=== PATIENT | male | born 1990 | race Caucasian/White ===

== ENCOUNTER 2018-10-21 17:54 | Observation (INO) ==
--- NOTE | 2018-10-21 18:25 | Emergency Department Note ---
Disposition Clinical Impression: Pneumonia Qualifiers: Pneumonia type: due to unspecified organism Laterality: right Lung location: lower lobe of lung Qualified Code(s): J18.1 - Lobar pneumonia, unspecified organism Sepsis Qualifiers: Sepsis type: sepsis due to unspecified organism Qualified Code(s): A41.9 - Sepsis, unspecified organism Disposition: Admitted As Inpatient Condition: Fair Time of Disposition: 22:34 Fever HPI - General Chief Complaint: ED Fever Stated Complaint: vomiting,abd pain Time Seen by Provider: 10/21/18 18:16 Source: patient Mode of arrival: ambulatory Limitations: no limitations Nursing Notes Reviewed: Yes Vital Signs Reviewed: Yes - History of Present Illness HPI Narrative: 27-year-old male no significant past medical history presenting to the ED for 2 weeks gradually progressive and worsening generalized malaise, abdominal pain, nausea, headaches. Patient also notes he has had anorexia and chills, is noted be febrile here in the ED, meets sepsis criteria. We will initiate sepsis workup this time. Patient is otherwise alert and oriented, answering questions appropriately. Pt Subjective Complaint: fever, malaise, weakness Onset (ago): week(s) Associated symptoms: Reports: chills, myalgias, headache, sore throat, abdominal pain, nausea, vomiting - Related Data Home Medications Medication Instructions Recorded Confirmed Acetaminophen [Tylenol] 650 mg PO DAILY PRN 10/21/18 10/21/18 Allergies Allergy/AdvReac Type Severity Reaction Status Date / Time No Known Allergies Allergy Verified 10/21/18 22:18 Review of Systems: *See History of Present Illness for more detail Constitutional: Admits: fever, chills HEENT: Denies dysphagia/odynophagia, lymphadenopathy Cardiovascular: Denies: chest pain Respiratory: Denies: dyspnea, cough, hemoptysis Gastrointestinal: Admits to nausea and vomiting Denies: abdominal pain, diarrhea, constipation, hematemesis, melena, hematochezia Genitourinary: Denies: hematuria Musculoskeletal: Denies: back pain, neck pain Integumentary: Denies: rash Neurological: Admits headache and weakness Denies: lightheadedness/dizziness, nu mbness, paresthesias, difficulty with ambulation. Endocrine: Admits: fatigue All systems ED: reviewed and negative except as stated. Review of Systems: As Per HPI Fever PMH - Past Medical History Medical history: Reports: GERD Psychiatric history: Reports: ADHD - Social History Smoking Status: Never smoker Alcohol use: Reports: none Drug use: Reports: none Physical Exam Constitutional: No acute distress, [id number], engaged to conversation, speech is fluid, answers questions appropriately Neuro: GCS 15, no overt focal neurological deficits Head: Atraumatic, normocephalic Eyes: Pupils equal, round and reactive to light, no scleral icterus, no conjunctival injection Neck: Trachea midline without deviation. Anterior neck is supple without swelling. *Chest: Symmetric chest wall rise *Heart: Rate is tachycardic, Cardiac rhythm otherwise regular with S1 and S2 , no S3 or S4 appreciated, no murmurs, gallops, rubs, or clicks. *Lungs: Lungs are clear to auscultation bilaterally, without accessory muscle use or prolonged expiratory phase. No wheezes, rhonchi or stridor appreciated. Abdomen: Patient mildly tender to palpation diffusely through the abdomen. Abdomen is flat, soft to palpation, normal bowel sounds. No abdominal bruit auscultated. Non-distended, non-rigid, no organomegaly, no ascites appreciated. No pulsatile mass, no guarding to palpation in all four quadrants, no rebound Extremities: Normal capillary refill without evidence of pedal edema, joint swelling or erythema. Pulses/motor/sensory intact in all 4 extremities. Psychiatric exam: Patient displays a normal affect and mood for the environment. No overt signs of hallucination. Integumentary: warm, dry, intact, normal color. No rash, cyanosis, diaphoresis, erythema, or pallor - General Limitations: no limitations General appearance: alert, in no apparent distress Course Course Narrative: ED sepsis workup Vital Signs Temperature 102.2 F H 10/21/18 17:55 Pulse Rate 138 10/21/18 17:55 Respiratory Rate 20 10/21/18 17:55 Blood Pressure 114/79 10/21/18 17:55 O2 Sat by Pulse Oximetry 98 10/21/18 17:55 Temperature 100.1 F H 10/21/18 21:00 Pulse Rate 119 10/21/18 21:30 Respiratory Rate 20 10/21/18 21:30 Blood Pressure 103/60 10/21/18 21:30 O2 Sat by Pulse Oximetry 97 10/21/18 21:30 Oxygen Delivery Oxygen Delivery Room Air Fever - MDM Narrative Medical decision making narrative: Patient imaging results consistent with developing pneumonia. Laboratory, imaging and EKG results otherwise unremarkable Patient admitted to hospital medicine service for further evaluation and management of pneumonia in the setting of sepsis. Patient family members at bedside verbalized understanding and agreement this plan. Patient is hemodynamically stable at the time of admission. Dr. Marshall accepting admission. - Lab Data Lab results reviewed: Yes I reviewed the patient's lab results. Result diagrams: 10/22/18 04:00 10/22/18 04:00 Lab Results 10/21/18 10/21/18 10/21/18 Range/Units 18:08 18:08 18:08 WBC 9.7 (4.3-11.1) K/mcL RBC 5.50 (4.19-5.50) M/mcL Hgb 11.5 L (12.9-16.9) g/dL Hct 39.3 (37.5-50.1) % MCV 71.5 L (83.0-100.0) fL MCH 20.9 L (28.0-33.3) pg MCHC 29.3 L (31.6-35.5) g/dL RDW 18.2 H (11.5-14.5) % Plt Count 358 (140-400) K/mcL MPV 9.3 L (9.4-12.4) fL Immature Gran % 0.6 (0-4) % Seg Neutrophils % 36.5 % Lymphocytes % 56.8 % Monocytes % 5.1 % Eosinophils % 0.1 % Basophils % 0.9 % Neutrophils # 3.5 (1.6-8.9) K/mcL Lymphocytes # 5.5 H (0.6-4.6) K/mcL Monocytes # 0.5 (0.0-1.3) K/mcL Eosinophils # 0.0 (0.0-0.6) K/mcL Basophils # 0.1 (0.0-0.2) K/mcL Reactive Lymphocytes Present A (Not Present) Platelet Estimate Normal (Normal) PT 17.3 H (9.4-12.1) Seconds INR 1.5 APTT 39.4 H (26.0-36.0) Seconds Sodium 134 L (136-145) mEq/L Potassium 4.0 (3.5-5.1) mEq/L Chloride 99 (98-107) mEq/L Carbon Dioxide 21 L (23-29) mEq/L BUN 14 (6-20) mg/dL Creatinine 1.39 H (0.70-1.30) mg/dL Est GFR ( Amer) > 60 (> 60) Est GFR (Non-Af Amer) > 60 (> 60) BUN/Creatinine Ratio 10 (6-26) Glucose 104 (70-105) mg/dL Calculated Osmolality 279 L (280-300) Lactic Acid (0.5-2.2) mmol/L Calcium 9.0 (8.6-10.3) mg/dL Phosphorus 1.4 L (2.7-4.5) mg/dL Magnesium 1.9 (1.6-2.6) mg/dL Total Bilirubin 0.7 (0.3-1.0) mg/dL Direct Bilirubin 0.3 H (0.0-0.2) mg/dL Indirect Bilirubin 0.4 (0.0-1.2) mg/dL AST 94 H (13-39) Units/L ALT 89 H (7-52) Units/L Alkaline Phosphatase 125 H (34-104) Units/L Troponin I < 0.03 (< 0.04) ng/mL Serum Total Protein 7.7 (6.4-8.9) g/dL Albumin 3.9 (3.5-5.7) g/dL Globulin 3.8 H (2.4-3.5) g/dL Albumin/Globulin Ratio 1.0 L (1.1-2.2) Lipase 37 (11-82) Units/L Urine Color (Yellow) Urine Clarity (Clear) Urine pH (5.0-8.0) pH Units Ur Specific [place] (1.010-1.025) Urine Protein (Neg-Trace) mg/dL Urine Glucose (UA) (Normal) mg/dL Urine Ketones (Negative) mg/dL Urine Blood (Negative) Urine Nitrite (Negative) Urine Bilirubin (Negative) Urine Urobilinogen (Normal) mg/dL Ur Leukocyte Esterase (Negative) Urine Microscopic RBC (0-3) per hpf Urine Microscopic WBC (0-3) per hpf Ur Squamous Epith Cells (None-Few) per lpf Amorphous Sediment (Few) Urine Bacteria (None-Few) per hpf Hyaline Casts (None-Few) per lpf Ur Culture Indicated? (NO) Urine Opiates Screen (Uognsk=388) ng/mL Ur Barbiturates Screen (Djupvh=427) ng/mL Ur Phencyclidine Scrn (Cutoff=25) ng/mL Ur Amphetamines Screen (Zlraej=9147) ng/mL U Benzodiazepines Scrn (Xgecay=229) ng/mL Urine Cocaine Screen (Cutoff= 300) ng/mL U Marijuana (THC) Screen (Cutoff = 50) ng/mL Ur Drug Screen Interp [place] Total Antibody (Negative) Hepatitis A IgM Ab (Nonreactive) Hep Bs Antigen (Nonreactive) Hep B Core IgM Ab (Nonreactive) Hepatitis C Ab Screen (Nonreactive) Infectious [place] Assay (Negative) 10/21/18 10/21/18 10/21/18 Range/Units 18:08 18:08 18:08 WBC (4.3-11.1) K/mcL RBC (4.19-5.50) M/mcL Hgb (12.9-16.9) g/dL Hct (37.5-50.1) % MCV (83.0-100.0) fL MCH (28.0-33.3) pg MCHC (31.6-35.5) g/dL RDW (11.5-14.5) % Plt Count (140-400) K/mcL MPV (9.4-12.4) fL Immature Gran % (0-4) % Seg Neutrophils % % Lymphocytes % % Monocytes % % Eosinophils % % Basophils % % Neutrophils # (1.6-8.9) K/mcL Lymphocytes # (0.6-4.6) K/mcL Monocytes # (0.0-1.3) K/mcL Eosinophils # (0.0-0.6) K/mcL Basophils # (0.0-0.2) K/mcL Reactive Lymphocytes (Not Present) Platelet Estimate (Normal) PT (9.4-12.1) Seconds INR APTT (26.0-36.0) Seconds Sodium (136-145) mEq/L Potassium (3.5-5.1) mEq/L Chloride (98-107) mEq/L Carbon Dioxide (23-29) mEq/L BUN (6-20) mg/dL Creatinine (0.70-1.30) mg/dL Est GFR ( Amer) (> 60) Est GFR (Non-Af Amer) (> 60) BUN/Creatinine Ratio (6-26) Glucose (70-105) mg/dL Calculated Osmolality (280-300) Lactic Acid 1.9 (0.5-2.2) mmol/L Calcium (8.6-10.3) mg/dL Phosphorus (2.7-4.5) mg/dL Magnesium (1.6-2.6) mg/dL Total Bilirubin (0.3-1.0) mg/dL Direct Bilirubin (0.0-0.2) mg/dL Indirect Bilirubin (0.0-1.2) mg/dL AST (13-39) Units/L ALT (7-52) Units/L Alkaline Phosphatase (34-104) Units/L Troponin I (< 0.04) ng/mL Serum Total Protein (6.4-8.9) g/dL Albumin (3.5-5.7) g/dL Globulin (2.4-3.5) g/dL Albumin/Globulin Ratio (1.1-2.2) Lipase (11-82) Units/L Urine Color (Yellow) Urine Clarity (Clear) Urine pH (5.0-8.0) pH Units Ur Specific [place] (1.010-1.025) Urine Protein (Neg-Trace) mg/dL Urine Glucose (UA) (Normal) mg/dL Urine Ketones (Negative) mg/dL Urine Blood (Negative) Urine Nitrite (Negative) Urine Bilirubin (Negative) Urine Urobilinogen (Normal) mg/dL Ur Leukocyte Esterase (Negative) Urine Microscopic RBC (0-3) per hpf Urine Microscopic WBC (0-3) per hpf Ur Squamous Epith Cells (None-Few) per lpf Amorphous Sediment (Few) Urine Bacteria (None-Few) per hpf Hyaline Casts (None-Few) per lpf Ur Culture Indicated? (NO) Urine Opiates Screen (Igsrac=833) ng/mL Ur Barbiturates Screen (Bxbnry=793) ng/mL Ur Phencyclidine Scrn (Cutoff=25) ng/mL Ur Amphetamines Screen (Dlgmnc=3113) ng/mL U Benzodiazepines Scrn (Yjuqwt=511) ng/mL Urine Cocaine Screen (Cutoff= 300) ng/mL U Marijuana (THC) Screen (Cutoff = 50) ng/mL Ur Drug Screen Interp [place] Total Antibody Negative (Negative) Hepatitis A IgM Ab Nonreactive (Nonreactive) Hep Bs Antigen Nonreactive (Nonreactive) Hep B Core IgM Ab Nonreactive (Nonreactive) Hepatitis C Ab Screen Nonreactive (Nonreactive) Infectious [place] Assay (Negative) 10/21/18 10/21/18 10/21/18 Range/Units 18:08 19:44 21:38 WBC (4.3-11.1) K/mcL RBC (4.19-5.50) M/mcL Hgb (12.9-16.9) g/dL Hct (37.5-50.1) % MCV (83.0-100.0) fL MCH (28.0-33.3) pg MCHC (31.6-35.5) g/dL RDW (11.5-14.5) % Plt Count (140-400) K/mcL MPV (9.4-12.4) fL Immature Gran % (0-4) % Seg Neutrophils % % Lymphocytes % % Monocytes % % Eosinophils % % Basophils % % Neutrophils # (1.6-8.9) K/mcL Lymphocytes # (0.6-4.6) K/mcL Monocytes # (0.0-1.3) K/mcL Eosinophils # (0.0-0.6) K/mcL Basophils # (0.0-0.2) K/mcL Reactive Lymphocytes (Not Present) Platelet Estimate (Normal) PT (9.4-12.1) Seconds INR APTT (26.0-36.0) Seconds Sodium (136-145) mEq/L Potassium (3.5-5.1) mEq/L Chloride (98-107) mEq/L Carbon Dioxide (23-29) mEq/L BUN (6-20) mg/dL Creatinine (0.70-1.30) mg/dL Est GFR ( Amer) (> 60) Est GFR (Non-Af Amer) (> 60) BUN/Creatinine Ratio (6-26) Glucose (70-105) mg/dL Calculated Osmolality (280-300) Lactic Acid (0.5-2.2) mmol/L Calcium (8.6-10.3) mg/dL Phosphorus (2.7-4.5) mg/dL Magnesium (1.6-2.6) mg/dL Total Bilirubin (0.3-1.0) mg/dL Direct Bilirubin (0.0-0.2) mg/dL Indirect Bilirubin (0.0-1.2) mg/dL AST (13-39) Units/L ALT (7-52) Units/L Alkaline Phosphatase (34-104) Units/L Troponin I (< 0.04) ng/mL Serum Total Protein (6.4-8.9) g/dL Albumin (3.5-5.7) g/dL Globulin (2.4-3.5) g/dL Albumin/Globulin Ratio (1.1-2.2) Lipase (11-82) Units/L Urine Color Dark Yellow (Yellow) Urine Clarity Cloudy A (Clear) Urine pH 6.0 (5.0-8.0) pH Units Ur Specific [place] 1.011 (1.010-1.025) Urine Protein Trace (Neg-Trace) mg/dL Urine Glucose (UA) Normal (Normal) mg/dL Urine Ketones 80 H (Negative) mg/dL Urine Blood Negative (Negative) Urine Nitrite Negative (Negative) Urine Bilirubin Moderate H (Negative) Urine Urobilinogen 2.0 H (Normal) mg/dL Ur Leukocyte Esterase Negative (Negative) Urine Microscopic RBC 0-3 (0-3) per hpf Urine Microscopic WBC 3-5 H (0-3) per hpf Ur Squamous Epith Cells Many H (None-Few) per lpf Amorphous Sediment Few (Few) Urine Bacteria None Seen (None-Few) per hpf Hyaline Casts None Seen (None-Few) per lpf Ur Culture Indicated? NO (NO) Urine Opiates Screen Negative (Nhgfao=757) ng/mL Ur Barbiturates Screen Negative (Rynwkd=822) ng/mL Ur Phencyclidine Scrn Negative (Cutoff=25) ng/mL Ur Amphetamines Screen Negative (Cmxfmv=4024) ng/mL U Benzodiazepines Scrn Negative (Wfmftu=319) ng/mL Urine Cocaine Screen Negative (Cutoff= 300) ng/mL U Marijuana (THC) Screen Negative (Cutoff = 50) ng/mL Ur Drug Screen Interp See Below Lyme Total Antibody (Negative) Hepatitis A IgM Ab (Nonreactive) Hep Bs Antigen (Nonreactive) Hep B Core IgM Ab (Nonreactive) Hepatitis C Ab Screen (Nonreactive) Infectious [place] Assay Negative (Negative) - Radiology Data Radiology results reviewed: Yes I reviewed the patient's radiology results. Abdomen/Pelvis CT 10/21/18 18:36 IMPRESSION: 1. Patchy consolidation in the posterior basal right lower lobe concerning for pneumonia. 2. Mild splenomegaly has developed since 2010. 3. No other acute abnormality in the abdomen or pelvis. Normal appendix. No renal calculus. D/ / 10/21/2018 19:32:06 Sabas Oliveira MD / [facility] Interpreting Provider: Sabas Oliveira MD Chest X-Ray 10/21/18 19:30 IMPRESSION: Negative chest. D/ / Luciano Mendoza MD / Luciano Mendoza MD Interpreting Provider: Luciano Mendoza MD - EKG Data EKG attestation: Yes I reviewed and interpreted this EKG. EKG results narrative: The patient's EKG shows sinus tachycardia with a heart of 135 bpm, PA interval of 123 ms, QRS duration of 103 ms, QT/QTc 309/464 ms respective Ignacio. There are no significant ST segment elevations, depressions, pathologic Q waves, there are abnormal T-wave inversions noted in leads 3, which may represent a normal variant and is isolated to this lead, there are no signs of acute ischemic change. This EKG performed today is generally consistent with prior EKG performed on 03/08/2012.
[2018-10-21] MEDS ORDERED: Ondansetron 4 MG/2 ML VIAL IVP STA (18:36)
[2018-10-21] MEDS ORDERED: *HR* FentaNYL (PF) 100 MCG/2 ML VIAL IVP ONE (18:36)
[2018-10-21 18:44] LABS: Basophils # 0.1 K/mcL (0.0-0.2); Basophils % 0.9 %; Eosinophils % 0.1 %; Hematocrit 39.3 % (37.5-50.1); Hemoglobin 11.5 g/dL (12.9-16.9); Immature Granulocytes % 0.6 % (0-4); Lymphocytes # 5.5 K/mcL (0.6-4.6); Lymphocytes % 56.8 %; Mean Corpuscular HGB Conc 29.3 g/dL (31.6-35.5); Mean Corpuscular Hemoglobin 20.9 pg (28.0-33.3); Mean Corpuscular Volume 71.5 fL (83.0-100.0); Mean Platelet Volume 9.3 fL (9.4-12.4); Monocytes # 0.5 K/mcL (0.0-1.3); Monocytes % 5.1 %; Neutrophils # 3.5 K/mcL (1.6-8.9); Platelet Count 358 K/mcL (140-400); Red Cell Distribution Width 18.2 % (11.5-14.5); Segmented Neutrophils % 36.5 %; White Blood Count 9.7 K/mcL (4.3-11.1)
[2018-10-21] MEDS: 0.9 % Sodium Chloride 1,000 ML IVC SCH ×2 (18:45→19:45)
[2018-10-21 18:54] LABS: INR 1.5; Prothrombin Time 17.3 Seconds (9.4-12.1)
[2018-10-21 18:56] LABS: Activated Partial Thrombo Time 39.4 Seconds (26.0-36.0)
[2018-10-21 19:03] LABS: Alanine Aminotransferase 89 Units/L (7-52); Albumin 3.9 g/dL (3.5-5.7); Alkaline Phosphatase 125 Units/L (34-104); Aspartate Amino Transferase 94 Units/L (13-39); BUN/Creatinine Ratio 10 (6-26); Bilirubin,Direct 0.3 mg/dL (0.0-0.2); Bilirubin,Indirect 0.4 mg/dL (0.0-1.2); Bilirubin,Total 0.7 mg/dL (0.3-1.0); Blood Urea Nitrogen 14 mg/dL (6-20); Carbon Dioxide 21 mEq/L (23-29); Chloride 99 mEq/L (98-107); Globulin 3.8 g/dL (2.4-3.5); Glucose 104 mg/dL (70-105); Lipase 37 Units/L (11-82); Magnesium 1.9 mg/dL (1.6-2.6); Osmolality,Calculated 279 (280-300); Phosphorous 1.4 mg/dL (2.7-4.5); Sodium 134 mEq/L (136-145); Total Protein 7.7 g/dL (6.4-8.9); Troponin I < 0.03 ng/mL (< 0.04); eGFR For African Americans > 60 (> 60); eGFR For Non-African Americans > 60 (> 60)
[2018-10-21 19:12] LABS: Platelet Estimate Normal (Normal); Reactive Lymphocytes Present (Not Present)
--- NOTE | 2018-10-21 19:30 | Emergency Department Note ---
Disposition Clinical Impression: Pneumonia Qualifiers: Pneumonia type: due to unspecified organism Laterality: right Lung location: lower lobe of lung Qualified Code(s): J18.1 - Lobar pneumonia, unspecified organism Sepsis Qualifiers: Sepsis type: sepsis due to unspecified organism Qualified Code(s): A41.9 - Sepsis, unspecified organism Disposition: Admitted As Inpatient Condition: Fair Referrals: Daniel Monahan MD [Primary Care Provider] - Forms: ED Satisfaction Letter Time of Disposition: 22:06 General Adult HPI - General Chief complaint: ED Fever Stated complaint: vomiting,abd pain Time Seen by Provider: 10/21/18 18:16 Source: patient Limitations: no limitations - History of Present Illness Pain Scale: 6 - Related Data Previous Rx's Medication Instructions Recorded Sucralfate [Carafate] 1 gm PO QIDAC #20 tablet 11/29/15 Allergies Allergy/AdvReac Type Severity Reaction Status Date / Time No Known Allergies Allergy Verified 11/29/15 20:06 Past Medical History - Past Medical History Medical history: Reports: GERD Psychiatric history: Reports: ADHD - Social History Smoking Status: Never smoker Smokeless Tobacco Status: No Alcohol use: Reports: none Drug use: Reports: none Physical Exam - General Limitations: no limitations General appearance: alert, in no apparent distress Course Vital Signs Temperature 102.2 F H 10/21/18 17:55 Pulse Rate 138 10/21/18 17:55 Respiratory Rate 20 10/21/18 17:55 Blood Pressure 114/79 10/21/18 17:55 O2 Sat by Pulse Oximetry 98 10/21/18 17:55 Temperature 100.1 F H 10/21/18 21:00 Pulse Rate 119 10/21/18 21:30 Respiratory Rate 20 10/21/18 21:30 Blood Pressure 103/60 10/21/18 21:30 O2 Sat by Pulse Oximetry 97 10/21/18 21:30 Oxygen Delivery Oxygen Delivery Room Air Medical Decision Making - Lab Data Result diagrams: 10/21/18 18:08 10/21/18 18:08 Lab Results 10/21/18 10/21/18 10/21/18 Range/Units 18:08 18:08 18:08 WBC 9.7 (4.3-11.1) K/mcL RBC 5.50 (4.19-5.50) M/mcL Hgb 11.5 L (12.9-16.9) g/dL Hct 39.3 (37.5-50.1) % MCV 71.5 L (83.0-100.0) fL MCH 20.9 L (28.0-33.3) pg MCHC 29.3 L (31.6-35.5) g/dL RDW 18.2 H (11.5-14.5) % Plt Count 358 (140-400) K/mcL MPV 9.3 L (9.4-12.4) fL Immature Gran % 0.6 (0-4) % Seg Neutrophils % 36.5 % Lymphocytes % 56.8 % Monocytes % 5.1 % Eosinophils % 0.1 % Basophils % 0.9 % Neutrophils # 3.5 (1.6-8.9) K/mcL Lymphocytes # 5.5 H (0.6-4.6) K/mcL Monocytes # 0.5 (0.0-1.3) K/mcL Eosinophils # 0.0 (0.0-0.6) K/mcL Basophils # 0.1 (0.0-0.2) K/mcL Reactive Lymphocytes Present A (Not Present) Platelet Estimate Normal (Normal) PT 17.3 H (9.4-12.1) Seconds INR 1.5 APTT 39.4 H (26.0-36.0) Seconds Sodium 134 L (136-145) mEq/L Potassium 4.0 (3.5-5.1) mEq/L Chloride 99 (98-107) mEq/L Carbon Dioxide 21 L (23-29) mEq/L BUN 14 (6-20) mg/dL Creatinine 1.39 H (0.70-1.30) mg/dL Est GFR ( Amer) > 60 (> 60) Est GFR (Non-Af Amer) > 60 (> 60) BUN/Creatinine Ratio 10 (6-26) Glucose 104 (70-105) mg/dL Calculated Osmolality 279 L (280-300) Lactic Acid (0.5-2.2) mmol/L Calcium 9.0 (8.6-10.3) mg/dL Phosphorus 1.4 L (2.7-4.5) mg/dL Magnesium 1.9 (1.6-2.6) mg/dL Total Bilirubin 0.7 (0.3-1.0) mg/dL Direct Bilirubin 0.3 H (0.0-0.2) mg/dL Indirect Bilirubin 0.4 (0.0-1.2) mg/dL AST 94 H (13-39) Units/L ALT 89 H (7-52) Units/L Alkaline Phosphatase 125 H (34-104) Units/L Troponin I < 0.03 (< 0.04) ng/mL Serum Total Protein 7.7 (6.4-8.9) g/dL Albumin 3.9 (3.5-5.7) g/dL Globulin 3.8 H (2.4-3.5) g/dL Albumin/Globulin Ratio 1.0 L (1.1-2.2) Lipase 37 (11-82) Units/L Urine Color (Yellow) Urine Clarity (Clear) Urine pH (5.0-8.0) pH Units Ur Specific [place] (1.010-1.025) Urine Protein (Neg-Trace) mg/dL Urine Glucose (UA) (Normal) mg/dL Urine Ketones (Negative) mg/dL Urine Blood (Negative) Urine Nitrite (Negative) Urine Bilirubin (Negative) Urine Urobilinogen (Normal) mg/dL Ur Leukocyte Esterase (Negative) Urine Microscopic RBC (0-3) per hpf Urine Microscopic WBC (0-3) per hpf Ur Squamous Epith Cells (None-Few) per lpf Amorphous Sediment (Few) Urine Bacteria (None-Few) per hpf Hyaline Casts (None-Few) per lpf Ur Culture Indicated? (NO) Ur Drug Screen Interp Lyme Total Antibody (Negative) Hep Bs Antigen (Nonreactive) Infectious [place] Assay (Negative) 10/21/18 10/21/18 10/21/18 Range/Units 18:08 18:08 18:08 WBC (4.3-11.1) K/mcL RBC (4.19-5.50) M/mcL Hgb (12.9-16.9) g/dL Hct (37.5-50.1) % MCV (83.0-100.0) fL MCH (28.0-33.3) pg MCHC (31.6-35.5) g/dL RDW (11.5-14.5) % Plt Count (140-400) K/mcL MPV (9.4-12.4) fL Immature Gran % (0-4) % Seg Neutrophils % % Lymphocytes % % Monocytes % % Eosinophils % % Basophils % % Neutrophils # (1.6-8.9) K/mcL Lymphocytes # (0.6-4.6) K/mcL Monocytes # (0.0-1.3) K/mcL Eosinophils # (0.0-0.6) K/mcL Basophils # (0.0-0.2) K/mcL Reactive Lymphocytes (Not Present) Platelet Estimate (Normal) PT (9.4-12.1) Seconds INR APTT (26.0-36.0) Seconds Sodium (136-145) mEq/L Potassium (3.5-5.1) mEq/L Chloride (98-107) mEq/L Carbon Dioxide (23-29) mEq/L BUN (6-20) mg/dL Creatinine (0.70-1.30) mg/dL Est GFR ( Amer) (> 60) Est GFR (Non-Af Amer) (> 60) BUN/Creatinine Ratio (6-26) Glucose (70-105) mg/dL Calculated Osmolality (280-300) Lactic Acid 1.9 (0.5-2.2) mmol/L Calcium (8.6-10.3) mg/dL Phosphorus (2.7-4.5) mg/dL Magnesium (1.6-2.6) mg/dL Total Bilirubin (0.3-1.0) mg/dL Direct Bilirubin (0.0-0.2) mg/dL Indirect Bilirubin (0.0-1.2) mg/dL AST (13-39) Units/L ALT (7-52) Units/L Alkaline Phosphatase (34-104) Units/L Troponin I (< 0.04) ng/mL Serum Total Protein (6.4-8.9) g/dL Albumin (3.5-5.7) g/dL Globulin (2.4-3.5) g/dL Albumin/Globulin Ratio (1.1-2.2) Lipase (11-82) Units/L Urine Color (Yellow) Urine Clarity (Clear) Urine pH (5.0-8.0) pH Units Ur Specific [place] (1.010-1.025) Urine Protein (Neg-Trace) mg/dL Urine Glucose (UA) (Normal) mg/dL Urine Ketones (Negative) mg/dL Urine Blood (Negative) Urine Nitrite (Negative) Urine Bilirubin (Negative) Urine Urobilinogen (Normal) mg/dL Ur Leukocyte Esterase (Negative) Urine Microscopic RBC (0-3) per hpf Urine Microscopic WBC (0-3) per hpf Ur Squamous Epith Cells (None-Few) per lpf Amorphous Sediment (Few) Urine Bacteria (None-Few) per hpf Hyaline Casts (None-Few) per lpf Ur Culture Indicated? (NO) Ur Drug Screen Interp Lyme Total Antibody Negative (Negative) Hep Bs Antigen Nonreactive (Nonreactive) Infectious [place] Assay (Negative) 10/21/18 10/21/18 10/21/18 Range/Units 18:08 19:44 21:38 WBC (4.3-11.1) K/mcL RBC (4.19-5.50) M/mcL Hgb (12.9-16.9) g/dL Hct (37.5-50.1) % MCV (83.0-100.0) fL MCH (28.0-33.3) pg MCHC (31.6-35.5) g/dL RDW (11.5-14.5) % Plt Count (140-400) K/mcL MPV (9.4-12.4) fL Immature Gran % (0-4) % Seg Neutrophils % % Lymphocytes % % Monocytes % % Eosinophils % % Basophils % % Neutrophils # (1.6-8.9) K/mcL Lymphocytes # (0.6-4.6) K/mcL Monocytes # (0.0-1.3) K/mcL Eosinophils # (0.0-0.6) K/mcL Basophils # (0.0-0.2) K/mcL Reactive Lymphocytes (Not Present) Platelet Estimate (Normal) PT (9.4-12.1) Seconds INR APTT (26.0-36.0) Seconds Sodium (136-145) mEq/L Potassium (3.5-5.1) mEq/L Chloride (98-107) mEq/L Carbon Dioxide (23-29) mEq/L BUN (6-20) mg/dL Creatinine (0.70-1.30) mg/dL Est GFR ( Amer) (> 60) Est GFR (Non-Af Amer) (> 60) BUN/Creatinine Ratio (6-26) Glucose (70-105) mg/dL Calculated Osmolality (280-300) Lactic Acid (0.5-2.2) mmol/L Calcium (8.6-10.3) mg/dL Phosphorus (2.7-4.5) mg/dL Magnesium (1.6-2.6) mg/dL Total Bilirubin (0.3-1.0) mg/dL Direct Bilirubin (0.0-0.2) mg/dL Indirect Bilirubin (0.0-1.2) mg/dL AST (13-39) Units/L ALT (7-52) Units/L Alkaline Phosphatase (34-104) Units/L Troponin I (< 0.04) ng/mL Serum Total Protein (6.4-8.9) g/dL Albumin (3.5-5.7) g/dL Globulin (2.4-3.5) g/dL Albumin/Globulin Ratio (1.1-2.2) Lipase (11-82) Units/L Urine Color Dark Yellow (Yellow) Urine Clarity Cloudy A (Clear) Urine pH 6.0 (5.0-8.0) pH Units Ur Specific [place] 1.011 (1.010-1.025) Urine Protein Trace (Neg-Trace) mg/dL Urine Glucose (UA) Normal (Normal) mg/dL Urine Ketones 80 H (Negative) mg/dL Urine Blood Negative (Negative) Urine Nitrite Negative (Negative) Urine Bilirubin Moderate H (Negative) Urine Urobilinogen 2.0 H (Normal) mg/dL Ur Leukocyte Esterase Negative (Negative) Urine Microscopic RBC 0-3 (0-3) per hpf Urine Microscopic WBC 3-5 H (0-3) per hpf Ur Squamous Epith Cells Many H (None-Few) per lpf Amorphous Sediment Few (Few) Urine Bacteria None Seen (None-Few) per hpf Hyaline Casts None Seen (None-Few) per lpf Ur Culture Indicated? NO (NO) Ur Drug Screen Interp See Below Lyme Total Antibody (Negative) Hep Bs Antigen (Nonreactive) Infectious [place] Assay Negative (Negative) Critical Care Time Critical Care Time: Yes Total Critical Care Time: 40 Attestation: Critical care performed: Time is exclusive of separately billable procedures. Time includes: direct patient care, patient reassessment, coordination of patient care, interpretation of data (laboratory data, radiology data, and respiratory data), review of patient's medical records, medical consultation and documentation of patient care. Procedures included in critical care time: Procedures excluded from critical care time: Attestation Statement - Attestation Attestation: I examined this patient and my medical decision-making was reviewed with the Resident Physician. I agree with the documented findings, disposition and treatment plan as described except to the extent set forth below. Patient denies the ED from urgent care. Patient complains of 2 weeks of generalized weakness, vomiting, fevers, achiness. Patient was febrile and tachycardic so they sent him in for sepsis workup. Patient denies any new exposures. Patient does not work. He denies being outside. He denies any tick bites. Denies mosquito bites. States he has vomited once today. No diarrhea. No blood in his vomit. On exam he is in no distress. Febrile 102. Lungs clear. Abdomen soft and nontender on my evaluation. I do not appreciate any rashes. Plan. Septic workup. lyme, [place], hepatitis profile. Patient with a pneumonia. Meets sepsis criteria. Not in shock. IV antibiotics ordered. Hepatitis profile still pending. Lyme is negative. Mar[place]o is negative. Abdomen/Pelvis CT 10/21/18 18:36 IMPRESSION: 1. Patchy consolidation in the posterior basal right lower lobe concerning for pneumonia. 2. Mild splenomegaly has developed since 2010. 3. No other acute abnormality in the abdomen or pelvis. Normal appendix. No renal calculus. D/ / 10/21/2018 19:32:06 Sabas Oliveira MD / bcarter Interpreting Provider: Sabas Oliveira MD Chest X-Ray 10/21/18 19:30 IMPRESSION: Negative chest. D/ / Luciano Mendoza MD / Luciano Mendoza MD Interpreting Provider: Luciano Mendoza MD
[2018-10-21 19:55] LABS: Bilirubin,Urine Moderate (Negative); Blood,Urine Negative (Negative); Clarity,Urine Cloudy (Clear); Color,Urine Dark Yellow (Yellow); Glucose,Urine (UA) Normal (Normal); Ketones,Urine 80 mg/dL (Negative); Leukocyte Esterase,Urine Negative (Negative); Nitrite,Urine Negative (Negative); Protein,Urine Trace mg/dL (Neg-Trace); Specific Gravity,Urine 1.011 (1.010-1.025)
[2018-10-21 19:57] LABS: Bacteria,Urine None Seen per hpf (None-Few); Hyaline Casts,Urine None Seen per lpf (None-Few); Squamous Epithelial Cell,Urine Many per lpf (None-Few)
[2018-10-21] MEDS ORDERED: Azithromycin 500 MG in D5% in Water 250 ML IVPB ONE ×2 (20:08→22:00)
[2018-10-21] MEDS ORDERED: cefTRIAXone 1,000 MG in Water for inj. (sterile) 20 ML 10 ML IVP ONE (20:08)
[2018-10-21 20:18] LABS: Amorphous Sediment,Urine Few (Few); RBC,Urine 0-3 per hpf (0-3)
[2018-10-21 21:43] LABS: Hepatitis B Surface Antigen Nonreactive (Nonreactive)
[2018-10-21 22:10] LABS: Amphetamine Screen,Urine Negative ng/mL (Cutoff=1000); Barbiturate Screen,Urine Negative ng/mL (Cutoff=200); Benzodiazepines Screen,Urine Negative ng/mL (Cutoff=200); Cannabinoid Screen,Urine Negative ng/mL (Cutoff = 50); Cocaine Screen,Urine Negative ng/mL (Cutoff= 300); Opiate Screen,Urine Negative ng/mL (Cutoff=300); Phencyclidine Screen,Urine Negative ng/mL (Cutoff=25)
[2018-10-21 22:12] LABS: Hepatitis A Antibody IgM Nonreactive (Nonreactive); Hepatitis B Core IgM Nonreactive (Nonreactive); Hepatitis C Virus Antibody Nonreactive (Nonreactive)
[2018-10-21] MEDS ORDERED: Ondansetron 4 MG/2 ML VIAL IVP PRN (22:39)
[2018-10-21] MEDS ORDERED: Acetaminophen 325 MG TABLET PO PRN (22:39)
--- NOTE | 2018-10-21 23:09 | Internal Med History&Physical ---
Date of Encounter: 10/21/18 Time of Encounter: 23:07 Internal Medicine - H&P: HPI Chief complaint: malaise Admitted From: Home Plans for Post Hospital Care: Home History of present illness: Jaylen Montero is a 27-year-old man who reports no past medical history who presents to the emergency room with a complaint of 2 weeks of generalized malaise, diffuse abdominal pain accompanied by nausea and vomiting as well as headaches. His mother confirms that he has not been eating as his appetite has been poor and of recent has become febrile with chills. He denies having cough, chest pain, dyspnea, dysuria or diarrhea. In the ER he was notably febrile and tachycardic and lab work revealing hemoglobin of 11.5, INR 1.5, elevation in transaminases, creatinine 1.39 and phosphorus 1.4. His chest x-ray was un remarkable and an abdomen/pelvis CT done due to his complaints revealed marked splenomegaly and a patchy consolidation in the posterior basal right lower lobe. He was given ceftriaxone/azithromycin empirically for suspected pneumonia however he denies any respiratory symptoms whatsoever and his chest x-ray is unrevealing. Vitals: Reviewed General: Obese white man who appears notably asthenic lying in bed in no acute distress. Skin: Warm, diaphoretic with a mild yellowish hue on his face HEENT: Dry mucous membranes. No conjunctivae pallor. No scleral icterus. Neck: No lymphadenopathy. No JVD. No carotid bruits. No palpable thyroid. Chest: Normal thoracic expansion. Normal breath sounds. Clear to auscultation. Heart: Normal S1 & S2; rhythmic. No rubs or murmurs. Abdomen: Non-distended, soft and mild tenderness to palpation diffusely. No peritoneal reaction. Extremities: No clubbing, cyanosis or edema. No calf tenderness. Normal distal pulses. Neurological: Awake, alert and oriented to person, place and time. No focal deficits. Psych: Affect appropriate. Assessment/Plan 1. Acute liver injury: The etiology is unclear. He will need serology for viral hepatitis and also check an APAP level. He seems to have a hepatocellular pattern of disease but also has splenomegaly for unclear reasons. His monospot test is negative. Will keep him on IVF and trend LFTs/INR, obtain a complete abdomen ultrasound in the morning and GI evaluation. 2. Fever: No signs of skin/soft tissue infection, UTI, [employer] [place] infection, diarrheal illness or respiratory symptoms suggestive of pneumonia. My review of the CT seems to point towards segmental atelectasis however it is only a slice from the abdomen CT therefore dedicated chest imaging would be more appropriate. Will send blood cultures empirically and hold off on further antibiotics in the interim pending further studies. 3. Dehydration: Notable on physical exam and his creatinine at 1.39 likely represents ED although I have no baseline to compare it with. Will continue fluid rehydration and recheck Cr. 4. DVT prophylaxis: SubQ heparin ordered. Past Med Surg Social Fam HX - Past Medical History Medical history: GERD Psychiatric history: ADHD - Social History Smoking Status: Never smoker Smokeless Tobacco Status: No Alcohol use: none Drug use: none Internal Medicine - H&P: Meds Acetaminophen [Tylenol] 650 mg PO DAILY PRN 10/21/18 [History] Allergy/AdvReac Type Severity Reaction Status Date / Time No Known Allergies Allergy Verified 10/21/18 22:18 All Systems PM: A 10-system review of systems was performed and is negative for pertinent findings except as documented above in the HPI. Family history reviewed and found non-contributory. - Constitutional Vitals: Temp Pulse Resp BP Pulse Ox 100.1 F H 119 20 109/72 97 10/21/18 21:00 10/21/18 21:30 10/21/18 22:47 10/21/18 22:47 10/21/18 21:30 Exam: . Internal Med - H&P Results - Labs CBC & Chem 7: 10/21/18 18:08 10/21/18 18:08 Labs: Short CBC 10/21/18 Range/Units 18:08 WBC 9.7 (4.3-11.1) K/mcL Hgb 11.5 L (12.9-16.9) g/dL Hct 39.3 (37.5-50.1) % Plt Count 358 (140-400) K/mcL Neutrophils # 3.5 (1.6-8.9) K/mcL BMP 10/21/18 18:08 Sodium 134 L Potassium 4.0 Chloride 99 Carbon Dioxide 21 L BUN 14 Creatinine 1.39 H Glucose 104 Calcium 9.0 Cardiac Enzymes 10/21/18 Range/Units 18:08 Troponin I < 0.03 (< 0.04) ng/mL Liver Function 10/21/18 Range/Units 18:08 Total Bilirubin 0.7 (0.3-1.0) mg/dL Direct Bilirubin 0.3 H (0.0-0.2) mg/dL AST 94 H (13-39) Units/L ALT 89 H (7-52) Units/L Alkaline Phosphatase 125 H (34-104) Units/L Albumin 3.9 (3.5-5.7) g/dL Urine 10/21/18 Range/Units 19:44 Urine Color Dark Yellow (Yellow) Urine Clarity Cloudy A (Clear) Urine pH 6.0 (5.0-8.0) pH Units Ur Specific [place] 1.011 (1.010-1.025) Urine Protein Trace (Neg-Trace) mg/dL Urine Glucose (UA) Normal (Normal) mg/dL - Impressions ITS Impressions Abdomen/Pelvis CT 10/21/18 18:36 IMPRESSION: 1. Patchy consolidation in the posterior basal right lower lobe concerning for pneumonia. 2. Mild splenomegaly has developed since 2010. 3. No other acute abnormality in the abdomen or pelvis. Normal appendix. No renal calculus. D/ / 10/21/2018 19:32:06 Sabas Oliveira MD / bcarter Interpreting Provider: Sabas Oliveira MD Chest X-Ray 10/21/18 19:30 IMPRESSION: Negative chest. D/ / Luciano Mendoza MD / Luciano Mendoza MD Interpreting Provider: Luciano Mendoza MD - Time Spent With Patient Total time spent is greater than 50% in coordination of care (as documented) at patient's floor/unit and/or counseling patient: Greater than 35 minutes
[2018-10-21 23:54] LABS: Acetaminophen < 10 mcg/mL (10-20)
[2018-10-22] MEDS ORDERED: Isovue-370 500 ML BOTTLE IVP ONE (00:01)
[2018-10-22] MEDS: Ringers Solution, Lactated 1,000 ML IVC SCH ×2 (00:40→10:57)
[2018-10-22] MEDS: *HR* Heparin 5,000 UNIT/ML VIAL SQ SCH ×2 (05:35→17:41)
[2018-10-22 07:13] LABS: Basophils # 0.1 K/mcL (0.0-0.2); Basophils % 0.7 %; Eosinophils % 0.3 %; Hematocrit 30.5 % (37.5-50.1); Immature Granulocytes % 0.7 % (0-4); Lymphocytes # 4.3 K/mcL (0.6-4.6); Mean Corpuscular HGB Conc 29.2 g/dL (31.6-35.5); Mean Corpuscular Hemoglobin 21.4 pg (28.0-33.3); Mean Corpuscular Volume 73.3 fL (83.0-100.0); Monocytes # 0.5 K/mcL (0.0-1.3); Monocytes % 7.1 %; Platelet Count 265 K/mcL (140-400); Red Blood Count 4.16 M/mcL (4.19-5.50); Red Cell Distribution Width 18.1 % (11.5-14.5); Segmented Neutrophils % 29.2 %
[2018-10-22 07:24] LABS: Hemoglobin 8.9 g/dL (12.9-16.9)
[2018-10-22 07:33] LABS: Acetaminophen < 10 mcg/mL (10-20); Alanine Aminotransferase 63 Units/L (7-52); Albumin 3.1 g/dL (3.5-5.7); Albumin/Globulin Ratio 1.1 (1.1-2.2); Alkaline Phosphatase 90 Units/L (34-104); Aspartate Amino Transferase 59 Units/L (13-39); BUN/Creatinine Ratio 12 (6-26); Bilirubin,Direct 0.2 mg/dL (0.0-0.2); Bilirubin,Indirect 0.3 mg/dL (0.0-1.2); Bilirubin,Total 0.5 mg/dL (0.3-1.0); Blood Urea Nitrogen 12 mg/dL (6-20); Calcium 7.8 mg/dL (8.6-10.3); Carbon Dioxide 21 mEq/L (23-29); Chloride 105 mEq/L (98-107); Globulin 2.8 g/dL (2.4-3.5); Glucose 98 mg/dL (70-105); Magnesium 1.9 mg/dL (1.6-2.6); Osmolality,Calculated 282 (280-300); Phosphorous 4.3 mg/dL (2.7-4.5); Potassium 3.8 mEq/L (3.5-5.1); Sodium 136 mEq/L (136-145); Total Protein 5.9 g/dL (6.4-8.9); eGFR For African Americans > 60 (> 60); eGFR For Non-African Americans > 60 (> 60)
[2018-10-22 07:49] LABS: Platelet Estimate Normal (Normal)
[2018-10-22] MEDS ORDERED: Pantoprazole 40 MG VIAL IVP SCH (09:00)
--- NOTE | 2018-10-22 09:47 | Electrocardiograph Report ---
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
[2018-10-22 11:24] LABS: % Iron Saturation 3 % (20-55); Iron 10 mcg/dL (65-175); Transferrin 208 mg/dL (203-362)
[2018-10-22] MEDS ORDERED: Ferumoxytol 510 MG in 0.9 % Sodium Chloride 100 ML IVPB ONE (11:42)
--- NOTE | 2018-10-22 11:50 | Internal Med Progress Note ---
Hospitalist Progress Note - Encounter Date of Encounter: 10/22/18 Time of Encounter: 09:00 - Subjective Interval History: H&P reviewed. 27-year-old male with no past medical history was admitted overnight due to generalized weakness, fever, and intermittent cough. Was incidentally found to have mild splenomegaly, anemia, transminitis, and questionable right lower lobe pneumonia. Patient confirms the above complaints but denies any chest pain or SOB. No recent weight loss or night sweats. - Exam Vitals: Temp Pulse Resp BP Pulse Ox 98.8 F 114 20 115/69 98 10/22/18 10:30 10/22/18 10:30 10/22/18 10:30 10/22/18 10:30 10/22/18 10:30 Exam: General: Alert and oriented, not in acute distress. Cardiovascular:Normal S1 & S2, No JVD. Pulse regular. Lungs: clear to auscultation, unable to appreciate any rhonchi or wheezes Abdomen:Soft, non-tender, no rigidity. NO appreciable splenomegaly Extremities:No deformity or swelling Neurological:Normal cognition and motor skills. Non-focal - Assessment and Plan (1) Fever Current Visit: Yes Status: Acute Assessment and Plan: presented with generalized weakness and fever, incidentally found to have anemia, splenomegaly and R LL PNA (although he has very minimal pulmonary symptoms) although PNA can certainly explain his fever, other findings raise suspicion for lymphoma especially with the additional finding of paratracheal lymphadenopathy on CT chest lyme ab -ve, mono -ve will treat PNA with IV Peyton/azithromycin heme/onc consult (2) Lymphadenopathy of head and neck Current Visit: Yes Status: Acute Assessment and Plan: although it could be reactive to PNA, the overall findings are certainly suspicious for lymphoma discussed with IR/Pulmonology, EBUS is certainly a possibility but would treat PNA first and repeat imaging before taking the tissue sample unless he develops significant B symptoms heme/onc consult as above (3) Splenomegaly Current Visit: Yes Status: Acute Assessment and Plan: with the additional findings as above, concerning for lymphoma GI/oncology consulted (4) Anemia Current Visit: Yes Status: Acute Assessment and Plan: no signs and symptoms of GI bleed ?Splenic sequestration check FOBT Fe supplementation GI consulted (5) Transaminitis Current Visit: Yes Status: Acute Assessment and Plan: Hepatitis panel negative, no hepatobiliary process noted on imaging studies improving, continue to monitor (6) ED (acute kidney injury) Current Visit: Yes Status: Acute Assessment and Plan: improving with IVF (7) Pneumonia Current Visit: Yes Status: Acute Assessment and Plan: complains of minimal dry cough with imaging studies consistent with RLL PNA IV Peyton/azithro as above strep/legionella ag DVT Prophylaxis: SQ heparin - Time Spent with Patient Total time spent is greater than 50% in coordination of care (as documented) at patient's floor/unit and/or counseling patient: Greater than 35 minutes Plan of Care Discussed with: patient (discussed with IR, pulmonology, GI, and hematology) Internal Medicine: Result - Labs CBC & Chem 7: 10/22/18 04:00 10/22/18 04:00 Labs: Short CBC 10/21/18 10/22/18 Range/Units 18:08 04:00 WBC 9.7 7.0 (4.3-11.1) K/mcL Hgb 11.5 L 8.9 L D (12.9-16.9) g/dL Hct 39.3 30.5 L (37.5-50.1) % Plt Count 358 265 (140-400) K/mcL Neutrophils # 3.5 2.0 (1.6-8.9) K/mcL BMP 10/21/18 10/22/18 18:08 04:00 Sodium 134 L 136 Potassium 4.0 3.8 Chloride 99 105 Carbon Dioxide 21 L 21 L BUN 14 12 Creatinine 1.39 H 1.03 Glucose 104 98 Calcium 9.0 7.8 L Cardiac Enzymes 10/21/18 Range/Units 18:08 Troponin I < 0.03 (< 0.04) ng/mL Liver Function 10/21/18 10/22/18 Range/Units 18:08 04:00 Total Bilirubin 0.7 0.5 (0.3-1.0) mg/dL Direct Bilirubin 0.3 H 0.2 (0.0-0.2) mg/dL AST 94 H 59 H (13-39) Units/L ALT 89 H 63 H (7-52) Units/L Alkaline Phosphatase 125 H 90 (34-104) Units/L Albumin 3.9 3.1 L (3.5-5.7) g/dL Urine 10/21/18 Range/Units 19:44 Urine Color Dark Yellow (Yellow) Urine Clarity Cloudy A (Clear) Urine pH 6.0 (5.0-8.0) pH Units Ur Specific [place] 1.011 (1.010-1.025) Urine Protein Trace (Neg-Trace) mg/dL Urine Glucose (UA) Normal (Normal) mg/dL - ABG Interpretation ABG results: PT/INR, D-dimer PT 17.3 Seconds (9.4-12.1) H 10/21/18 18:08 - Impressions Impressions Abdomen/Pelvis CT 10/21/18 18:36 IMPRESSION: 1. Patchy consolidation in the posterior basal right lower lobe concerning for pneumonia. 2. Mild splenomegaly has developed since 2010. 3. No other acute abnormality in the abdomen or pelvis. Normal appendix. No renal calculus. D/ / 10/21/2018 19:32:06 Sabas Oliveira MD / bcarter Interpreting Provider: Sabas Oliveira MD Chest X-Ray 10/21/18 19:30 IMPRESSION: Negative chest. D/ / Luciano Mendoza MD / Luciano Mendoza MD Interpreting Provider: Luciano Mendoza MD Abdomen/Pelvis CT 10/22/18 00:01 IMPRESSION: 1. Right lower lobe pneumonia. Follow-up imaging is recommended after treatment to ensure resolution. 2. Enlarged right paratracheal lymph node measuring 2.1 x 1.8 x 2.6 cm located at level 6. This is indeterminate but concerning for a possible neoplastic process. Consider tissue sampling for further evaluation. 3. Diffuse abnormal wall thickening of the esophagus suggestive of an esophagitis. EGD is suggested for further evaluation. 4. Splenomegaly of uncertain etiology. D/ / 10/22/2018 10:37:57 Cisco Leavitt MD / sammie Interpreting Provider: Cisco Leavitt MD Chest CT 10/22/18 00:01 IMPRESSION: 1. Right lower lobe pneumonia. Follow-up imaging is recommended after treatment to ensure resolution. 2. Enlarged right paratracheal lymph node measuring 2.1 x 1.8 x 2.6 cm located at level 6. This is indeterminate but concerning for a possible neoplastic process. Consider tissue sampling for further evaluation. 3. Diffuse abnormal wall thickening of the esophagus suggestive of an esophagitis. EGD is suggested for further evaluation. 4. Splenomegaly of uncertain etiology. D/ / 10/22/2018 10:37:57 Cisco Leavitt MD / sammie Interpreting Provider: Cisco Leavitt MD Abdomen Ultrasound 10/22/18 08:00 IMPRESSION: 1. Mild splenomegaly, as seen on yesterday's CT abdomen exam. No evidence of a splenic mass. 2. No acute abnormality in the right upper quadrant. Normal gallbladder. D/ / Herrera Humphrey MD / Herrera Humphrey MD Interpreting Provider: Herrera Humphrey MD Consult Discharge Plan - Plan Referrals: Daniel Monahan MD [Primary Care Provider] - (1) Fever Qualifiers: Fever type: unspecified Qualified Code(s): R50.9 - Fever, unspecified (4) Anemia Qualifiers: Anemia type: iron deficiency Iron deficiency anemia type: unspecified iron deficiency Qualified Code(s): D50.9 - Iron deficiency anemia, unspecified (7) Pneumonia Qualifiers: Pneumonia type: due to unspecified organism Laterality: right Lung location: lower lobe of lung Qualified Code(s): J18.1 - Lobar pneumonia, unspecified organism
--- NOTE | 2018-10-22 11:52 | Gastroenterology Consult Note ---
<Jack Smallwood Kristen - Last Filed: 10/22/18 12:23> Date of Encounter: 10/22/18 Time of Encounter: 10:35 - Assessment and plan (1) Anemia Current Visit: Yes Status: Acute Assessment and plan: On admission Hgb 11.5 and today Hgb 8.9. Iron 10, give one dose IV iron now, and repeat in 2 weeks. Continue to monitor CBC and transfuse PRBC as needed. Plan for EGD and colonoscopy as outpatient. Qualifiers: Anemia type: iron deficiency Iron deficiency anemia type: unspecified iron deficiency Qualified Code(s): D50.9 - Iron deficiency anemia, unspecified (2) Transaminitis Current Visit: Yes Status: Acute Assessment and plan: On arrival here TB 0.7, AST 94, ALT 89, alk phos 125. Today TB 0.5, AST 59, ALT 63, alk phos 90. Hepatitis profile negative. Continue to monitor hepatic panel. Check AFP, alpha-1 antitrypsin, ABDULLAHI, ANCA, ceruloplasmin, F actin, ferritin, AMA, PT/INR. Check celiac panel. CT A/P concerning for pneumonia, and showed splenomegaly stable since 2010. Repeat CT this AM shows right lower lobe pneumonia, enlarged right paratracheal lymph node measuring 2.1 x 1.8 x 2.6 cm concerning for a possible neoplastic process, diffuse abnormal wall thickening of the esophagus suggestive of an esophagitis. (3) Lymphadenopathy of head and neck Current Visit: Yes Status: Acute (4) Epigastric abdominal pain Current Visit: Yes Status: Acute Assessment and plan: Start PPI. - Time Spent With Patient Total time spent is greater than 50% in coordination of care (as documented) at patient's floor/unit and/or counseling patient: GI History of Present Illness - Data of Consult Patient: new to practice Consult date: 10/22/18 Requesting Physician: Chadd Junior MD - Consult Narrative Reason for consult: Acute liver injury History of present illness: Mr. Montero is a 27 year old male with no past medical history who presented to the ED with complaints of generalized malaise, abdominal pain, nausea, and vomiting for the past 2 weeks. He reports his appetite has been poor. He states he was febrile at home, but did not check his temperature. On arrival here, temp 102.2, Hgb 11.5, TB 0.7, AST 94, ALT 89, alk phos 125. Today Hgb 8.9, TB 0.5, AST 59, ALT 63, alk phos 90. CT A/P concerning for pneumonia, and showed splenomegaly stable since 2010. We were consulted to evaluate for acute liver injury. Procedures: None NSAIDs: None Anticoagulation: None Past Med Surg Social Fam HX - Past Medical History Medical history: GERD Psychiatric history: ADHD - Social History Smoking Status: Never smoker Smokeless Tobacco Status: No Alcohol use: none Drug use: none - Gastrointestinal Gastrointestinal: Present: as per HPI - Constitutional Constitutional: as per HPI - EENT Eyes: as per HPI Ears: Present: as per HPI Nose, mouth and throat: Present: as per HPI - Cardiovascular Cardiovascular ROS: Present: as per HPI - Respiratory Respiratory IM: Present: as per HPI - Genitourinary Genitourinary: Absent: change in color, Urinary frequency - Neurological ROS Neurological GI: Present: as per HPI - Hematologic/Lymphatic Hematologic/Lymphatic pediatric: Present: as per HPI - Musculoskeletal Musculoskeletal ROS GI: Present: as per HPI - Integumentary Integumentary GI: Present: as per HPI - Psychiatric ROS Psychiatric GI: Present: as per HPI - Endocrine Endocrine IM: Present: as per HPI - Constitutional Vitals: Temp Pulse Resp BP Pulse Ox 98.8 F 114 20 115/69 98 10/22/18 10:30 10/22/18 10:30 10/22/18 10:30 10/22/18 10:30 10/22/18 10:30 General appearance: Present: cooperative, A&O X 3, no acute distress, answers questions appropriately - Head Head exam: Present: atraumatic, normocephalic - Eye Eye exam: Present: normal appearance, sclera anicteric - ENT ENT exam: Present: mucous membranes dry - Neck Neck exam general surgery: Present: normal inspection, trachea midline - Respiratory Respiratory exam: Present: decreased breath sounds, CTAB. Absent: rales, rhonchi, wheezes - Cardiovascular Cardiovascular exam: Present: RRR, +S1, +S2 - GI/Abdominal GI/Abdominal exam: Present: normal bowel sounds, soft, tenderness (mild epigastric tenderness), no peritoneal signs. Absent: distended, firm, guarding - Rectal Rectal exam: Present: deferred - Extremities Exam Extremities exam: Present: warm - Neurological Exam Neurological exam: Present: no focal deficits - Psychiatric Psychiatric exam: Present: normal affect, normal mood - Skin Skin exam: Present: dry, intact, normal color, warm Results - Labs CBC & Chem 7: 10/22/18 04:00 10/22/18 04:00 Labs: Last Result 10/22/18 04:00 Calcium 7.8 L Iron 10 L % Saturation 3 L Transferrin 208 Entire Visit 10/21/18 10/22/18 10/22/18 18:08 04:00 04:00 Hgb 8.9 L D Hct 30.5 L Total Bilirubin 0.5 AST 59 H ALT 63 H Ammonia Acetaminophen < 10 L < 10 L 10/22/18 06:58 Hgb Hct Total Bilirubin AST ALT Ammonia 37 Acetaminophen - ABG ABG results: PT/INR, D-dimer PT 17.3 Seconds (9.4-12.1) H 10/21/18 18:08 - Impressions Impressions Abdomen/Pelvis CT 10/21/18 18:36 IMPRESSION: 1. Patchy consolidation in the posterior basal right lower lobe concerning for pneumonia. 2. Mild splenomegaly has developed since 2010. 3. No other acute abnormality in the abdomen or pelvis. Normal appendix. No renal calculus. D/ / 10/21/2018 19:32:06 Sabas Oliveira MD / dolores Interpreting Provider: Sabas Oliveira MD Chest X-Ray 10/21/18 19:30 IMPRESSION: Negative chest. D/ / Luciano Mendoza MD / Luciano Mendoza MD Interpreting Provider: Luciano Mendoza MD Abdomen/Pelvis CT 10/22/18 00:01 IMPRESSION: 1. Right lower lobe pneumonia. Follow-up imaging is recommended after treatment to ensure resolution. 2. Enlarged right paratracheal lymph node measuring 2.1 x 1.8 x 2.6 cm located at level 6. This is indeterminate but concerning for a possible neoplastic process. Consider tissue sampling for further evaluation. 3. Diffuse abnormal wall thickening of the esophagus suggestive of an esophagitis. EGD is suggested for further evaluation. 4. Splenomegaly of uncertain etiology. D/ / 10/22/2018 10:37:57 Cisco Leavitt MD / sammie Interpreting Provider: Cisco Leavitt MD Chest CT 10/22/18 00:01 IMPRESSION: 1. Right lower lobe pneumonia. Follow-up imaging is recommended after treatment to ensure resolution. 2. Enlarged right paratracheal lymph node measuring 2.1 x 1.8 x 2.6 cm located at level 6. This is indeterminate but concerning for a possible neoplastic process. Consider tissue sampling for further evaluation. 3. Diffuse abnormal wall thickening of the esophagus suggestive of an esophagitis. EGD is suggested for further evaluation. 4. Splenomegaly of uncertain etiology. D/ / 10/22/2018 10:37:57 Cisco Leavitt MD / sammie Interpreting Provider: Cisco Leavitt MD Abdomen Ultrasound 10/22/18 08:00 IMPRESSION: 1. Mild splenomegaly, as seen on yesterday's CT abdomen exam. No evidence of a splenic mass. 2. No acute abnormality in the right upper quadrant. Normal gallbladder. D/ / Herrera Humphrey MD / Herrera Humphrey MD Interpreting Provider: Herrera Humphrey MD Consult Discharge Plan - Plan Referrals: Daniel Monahan MD [Primary Care Provider] - <Petrona Leblanc - Last Filed: 10/22/18 16:02> Date of Encounter: 10/22/18 - Time Spent With Patient Total time spent is greater than 50% in coordination of care (as documented) at patient's floor/unit and/or counseling patient: GI History of Present Illness - Data of Consult Requesting Physician: Chadd Junior MD - Consult Narrative History of present illness: Mr. Montero is a 27 year old male - Constitutional Vitals: Temp Pulse Resp BP Pulse Ox 101.4 F H 117 19 117/71 96 10/22/18 14:31 10/22/18 14:31 10/22/18 14:31 10/22/18 14:31 10/22/18 14:31 Results - Labs CBC & Chem 7: 10/22/18 04:00 10/22/18 04:00 Labs: Last Result 10/22/18 10/22/18 04:00 12:13 Calcium 7.8 L Iron 10 L % Saturation 3 L Transferrin 208 Ferritin 24 Entire Visit 10/22/18 10/22/18 10/22/18 04:00 04:00 06:58 Hgb 8.9 L D Hct 30.5 L Ferritin Total Bilirubin 0.5 AST 59 H ALT 63 H Ammonia 37 Acetaminophen < 10 L 10/22/18 12:13 Hgb Hct Ferritin 24 Total Bilirubin AST ALT Ammonia Acetaminophen - ABG ABG results: PT/INR, D-dimer PT 17.3 Seconds (9.4-12.1) H 10/21/18 18:08 - Impressions Impressions Abdomen/Pelvis CT 10/21/18 18:36 IMPRESSION: 1. Patchy consolidation in the posterior basal right lower lobe concerning for pneumonia. 2. Mild splenomegaly has developed since 2010. 3. No other acute abnormality in the abdomen or pelvis. Normal appendix. No renal calculus. D/ / 10/21/2018 19:32:06 Sabas Oliveira MD / bcarter Interpreting Provider: Sabas Oliveira MD Chest X-Ray 10/21/18 19:30 IMPRESSION: Negative chest. D/ / Luciano Mendoza MD / Luciano Mendoza MD Interpreting Provider: Luciano Mendoza MD Abdomen/Pelvis CT 10/22/18 00:01 IMPRESSION: 1. Right lower lobe pneumonia. Follow-up imaging is recommended after treatment to ensure resolution. 2. Enlarged right paratracheal lymph node measuring 2.1 x 1.8 x 2.6 cm located at level 6. This is indeterminate but concerning for a possible neoplastic process. Consider tissue sampling for further evaluation. 3. Diffuse abnormal wall thickening of the esophagus suggestive of an esophagitis. EGD is suggested for further evaluation. 4. Splenomegaly of uncertain etiology. D/ / 10/22/2018 10:37:57 Cisco Leavitt MD / sammie Interpreting Provider: Cisco Leavitt MD Chest CT 10/22/18 00:01 IMPRESSION: 1. Right lower lobe pneumonia. Follow-up imaging is recommended after treatment to ensure resolution. 2. Enlarged right paratracheal lymph node measuring 2.1 x 1.8 x 2.6 cm located at level 6. This is indeterminate but concerning for a possible neoplastic process. Consider tissue sampling for further evaluation. 3. Diffuse abnormal wall thickening of the esophagus suggestive of an esophagitis. EGD is suggested for further evaluation. 4. Splenomegaly of uncertain etiology. D/ / 10/22/2018 10:37:57 Cisco Levaitt MD / elizabethay Interpreting Provider: Cisco Leavitt MD Abdomen Ultrasound 10/22/18 08:00 IMPRESSION: 1. Mild splenomegaly, as seen on yesterday's CT abdomen exam. No evidence of a splenic mass. 2. No acute abnormality in the right upper quadrant. Normal gallbladder. D/ / Herrera Humphrey MD / Herrera Humphrey MD Interpreting Provider: Herrera Humphrey MD - Attending Attestation I have personally performed a face to face evaluation on this patient. I have reviewed and agree with the care plan. History and Exam by me shows: Pt seen complaining of feeling fatigued. Examination alert and awake not in distress abdomen is benign. Assessment: Patient with the severe iron deficiency anemia with the peritracheal lymphadenopathy and splenomegaly. Had a drop in hemoglobin with hydration no overt GI bleeding. Being seen by oncology for his lymphadenopathy and anemia. has mildly elevated LFTs but the hepatitis profile is negative. Rec: Continue there is no acute indication for scopes treatment the iron deficiency anemia with the IV iron. Workup of splenomegaly/lymphadenopathy as per oncology. Patient will also have lab done to make sure he does not have hemolytic anemia. Mildly elevated LFTs are most probably due to systemic process doubt that he has as any primary underlying liver disease
--- NOTE | 2018-10-22 13:41 | Oncology Inp Consult Note ---
Date of Encounter: 10/22/18 Time of Encounter: 13:30 Assessment and Plan (1) Splenomegaly Status: Acute Assessment and plan: CT abdomen and pelvis: The spleen is enlarged measuring 15.4 cm in AP dimension. There are no focal splenic lesions identified. The liver, pancreas and gallbladder have a normal appearance. The adrenal glands are normal in appearance. There is a well-circumscribed 1.3 cm simple left renal cyst measuring an average density of 14 Hounsfield units. There is a second, smaller simple cyst at the lower pole of the left kidney measuring 9 mm. There is no solid renal mass identified. There is no hydronephrosis. Plan: Repeat CT scan in 6 weeks. Follow-up with Dr. Chow at the [facility] for results and lab work. (2) Anemia Status: Acute Assessment and plan: Microcytic, hypochromic anemia After IV hydration, Hgb dropped from 11.5 to 8.9 MCV 73.3 , MCHC 29.2 WBC WNL, PLTS WNL. Iron: 10, sat 3%, ferritin 24 Received Feraheme IV 10/22/18. Plan: Monitor CBC daily. Follow-up at [facility] with Dr. Chow with labs. Repeat CT scans in 6 weeks to check for resolution of lymphadenopathy. Qualifiers: Anemia type: iron deficiency Iron deficiency anemia type: unspecified iron deficiency Qualified Code(s): D50.9 - Iron deficiency anemia, unspecified (3) Lymphadenopathy of head and neck Status: Acute Assessment and plan: CT chest: Mediastinum: There is an enlarged right level 6 lymph node abutting the trachea to the right of midline. This lymph node measures 2.1 x 1.8 x 2.6 cm in AP by transverse by craniocaudal dimension. There is a mildly enlarged left paratracheal lymph node measuring 1.0 x 1.1 x 1.7 cm. There is no other mediastinal lymphadenopathy identified. There is diffuse esophageal wall thickening. There is fluid within the esophagus. Patient c/o fever, chills, night sweats, fatigue, and weakness x 2 weeks Plan: Likely viral etiology. Reactive lymphocytes noted. Ordered West Nile virus IgG/IgM. Plan for repeat CT scans in 6 weeks to check for resolution of lymphadenopathy. - Data of Consult Patient: new to practice Requesting Physician: Chadd Junior MD Primary Care Provider: Daniel Monahan MD - Consult Narrative Reason for consult: anemia, lymphadenopathy, fatigue History of present illness: Jaylen, a 27 yo male, presented to the ED due to progressive weakness and fatigue x 2 weeks, nausea, abdominal pain, [employer] cough and fevers. After IV hydration, patient's hemoglobin is now 8.9. CT chest/abdomen note right paratracheal lymph node 2.1 x1.8 x 2.6cm, L paratracheal LN 1x1.1x1.7, and splenomegaly 15.4cm. ROS: + Fever, chills, night sweats + Fatigue and weakness + Abdominal pain and nausea + Poor appetite + [employer]THROPOLOGY cough. Denies hemoptysis. Denies vomiting, diarrhea, or constipation. Denies headaches or vision changes. Denies hematuria, melena, or hematochezia. Denies recent ill contacts. He has been outside around mosquitoes and insects. Medical history: None Social history: Lives in [place] with parents. Tobacco use: denies Alcohol use: denies Illicit drug use: denies Denies family history of blood diseases or cancer. Past Med Surg Social Fam HX - Past Medical History Medical history: GERD Psychiatric history: ADHD - Social History Smoking Status: Never smoker Smokeless Tobacco Status: No Alcohol use: none Drug use: none Medications and Allergies Acetaminophen [Tylenol] 650 mg PO DAILY PRN 10/21/18 [History] Allergy/AdvReac Type Severity Reaction Status Date / Time No Known Allergies Allergy Verified 10/21/18 22:18 Oncology - Exam - Additional findings Additional findings: General: Alert and oriented, fatigued-appearing, pale, Mental Status: Flat affect Skin: No rashes or petechiae. Lymph nodes: No cervical, supraclavicular, or axillaryadenopathy. Lungs: Clear to auscultation. [employer] ANTHROPOLOGY cough. Cardiovascular: Regular rate and rhythm. No gallops, murmurs, or rubs. Abdomen: Soft, nontender; mild splenomegaly. Extremities: No edema. No calf swelling or tenderness. No joint deformity. Neurologic: Alert, cranial nerves II-XII intact; no focal weakness or sensory abnormalities. Oncology Inpatient Results Labs: Laboratory Results - last 24 hr 10/21/18 10/21/18 10/21/18 18:08 18:08 18:08 WBC 9.7 RBC 5.50 Hgb 11.5 L Hct 39.3 MCV 71.5 L MCH 20.9 L MCHC 29.3 L RDW 18.2 H Plt Count 358 MPV 9.3 L Immature Gran % 0.6 Seg Neutrophils % 36.5 Lymphocytes % 56.8 Monocytes % 5.1 Eosinophils % 0.1 Basophils % 0.9 Neutrophils # 3.5 Lymphocytes # 5.5 H Monocytes # 0.5 Eosinophils # 0.0 Basophils # 0.1 Reactive Lymphocytes Present A Platelet Estimate Normal PT 17.3 H INR 1.5 APTT 39.4 H Sodium 134 L Potassium 4.0 Chloride 99 Carbon Dioxide 21 L BUN 14 Creatinine 1.39 H Est GFR ( Amer) > 60 Est GFR (Non-Af Amer) > 60 BUN/Creatinine Ratio 10 Glucose 104 Calculated Osmolality 279 L Lactic Acid Calcium 9.0 Phosphorus 1.4 L Magnesium 1.9 Iron % Saturation Transferrin Ferritin Total Bilirubin 0.7 Direct Bilirubin 0.3 H Indirect Bilirubin 0.4 AST 94 H ALT 89 H Alkaline Phosphatase 125 H Ammonia Troponin I < 0.03 Serum Total Protein 7.7 Albumin 3.9 Globulin 3.8 H Albumin/Globulin Ratio 1.0 L Lipase 37 Urine Color Urine Clarity Urine pH Ur Specific [place] Urine Protein Urine Glucose (UA) Urine Ketones Urine Blood Urine Nitrite Urine Bilirubin Urine Urobilinogen Ur Leukocyte Esterase Urine Microscopic RBC Urine Microscopic WBC Ur Squamous Epith Cells Amorphous Sediment Urine Bacteria Hyaline Casts Ur Culture Indicated? Urine Opiates Screen Acetaminophen < 10 L Ur Barbiturates Screen Ur Phencyclidine Scrn Ur Amphetamines Screen U Benzodiazepines Scrn Urine Cocaine Screen U Marijuana (THC) Screen Ur Drug Screen Interp Lyme Total Antibody Hepatitis A IgM Ab Hep Bs Antigen Hep B Core IgM Ab Hepatitis C Ab Screen Infectious Brown Assay 10/21/18 10/21/18 10/21/18 18:08 18:08 18:08 WBC RBC Hgb Hct MCV MCH MCHC RDW Plt Count MPV Immature Gran % Seg Neutrophils % Lymphocytes % Monocytes % Eosinophils % Basophils % Neutrophils # Lymphocytes # Monocytes # Eosinophils # Basophils # Reactive Lymphocytes Platelet Estimate PT INR APTT Sodium Potassium Chloride Carbon Dioxide BUN Creatinine Est GFR ( Amer) Est GFR (Non-Af Amer) BUN/Creatinine Ratio Glucose Calculated Osmolality Lactic Acid 1.9 Calcium Phosphorus Magnesium Iron % Saturation Transferrin Ferritin Total Bilirubin Direct Bilirubin Indirect Bilirubin AST ALT Alkaline Phosphatase Ammonia Troponin I Serum Total Protein Albumin Globulin Albumin/Globulin Ratio Lipase Urine Color Urine Clarity Urine pH Ur Specific [place] Urine Protein Urine Glucose (UA) Urine Ketones Urine Blood Urine Nitrite Urine Bilirubin Urine Urobilinogen Ur Leukocyte Esterase Urine Microscopic RBC Urine Microscopic WBC Ur Squamous Epith Cells Amorphous Sediment Urine Bacteria Hyaline Casts Ur Culture Indicated? Urine Opiates Screen Acetaminophen Ur Barbiturates Screen Ur Phencyclidine Scrn Ur Amphetamines Screen U Benzodiazepines Scrn Urine Cocaine Screen U Marijuana (THC) Screen Ur Drug Screen Interp [place]yme Total Antibody Negative Hepatitis A IgM Ab Nonreactive Hep Bs Antigen Nonreactive Hep B Core IgM Ab Nonreactive Hepatitis C Ab Screen Nonreactive Infectious Brown Assay 10/21/18 10/21/18 10/21/18 18:08 19:44 21:38 WBC RBC Hgb Hct MCV MCH MCHC RDW Plt Count MPV Immature Gran % Seg Neutrophils % Lymphocytes % Monocytes % Eosinophils % Basophils % Neutrophils # Lymphocytes # Monocytes # Eosinophils # Basophils # Reactive Lymphocytes Platelet Estimate PT INR APTT Sodium Potassium Chloride Carbon Dioxide BUN Creatinine Est GFR ( Amer) Est GFR (Non-Af Amer) BUN/Creatinine Ratio Glucose Calculated Osmolality Lactic Acid Calcium Phosphorus Magnesium Iron % Saturation Transferrin Ferritin Total Bilirubin Direct Bilirubin Indirect Bilirubin AST ALT Alkaline Phosphatase Ammonia Troponin I Serum Total Protein Albumin Globulin Albumin/Globulin Ratio Lipase Urine Color Dark Yellow Urine Clarity Cloudy A Urine pH 6.0 Ur Specific [place] 1.011 Urine Protein Trace Urine Glucose (UA) Normal Urine Ketones 80 H Urine Blood Negative Urine Nitrite Negative Urine Bilirubin Moderate H Urine Urobilinogen 2.0 H Ur Leukocyte Esterase Negative Urine Microscopic RBC 0-3 Urine Microscopic WBC 3-5 H Ur Squamous Epith Cells Many H Amorphous Sediment Few Urine Bacteria None Seen Hyaline Casts None Seen Ur Culture Indicated? NO Urine Opiates Screen Negative Acetaminophen Ur Barbiturates Screen Negative Ur Phencyclidine Scrn Negative Ur Amphetamines Screen Negative U Benzodiazepines Scrn Negative Urine Cocaine Screen Negative U Marijuana (THC) Screen Negative Ur Drug Screen Interp See Below Lyme Total Antibody Hepatitis A IgM Ab Hep Bs Antigen Hep B Core IgM Ab Hepatitis C Ab Screen Infectious Brown Assay Negative 10/22/18 10/22/18 10/22/18 04:00 04:00 06:58 WBC 7.0 RBC 4.16 L Hgb 8.9 L D Hct 30.5 L MCV 73.3 L MCH 21.4 L MCHC 29.2 L RDW 18.1 H Plt Count 265 MPV 9.0 L Immature Gran % 0.7 Seg Neutrophils % 29.2 Lymphocytes % 62.0 Monocytes % 7.1 Eosinophils % 0.3 Basophils % 0.7 Neutrophils # 2.0 Lymphocytes # 4.3 Monocytes # 0.5 Eosinophils # 0.0 Basophils # 0.1 Reactive Lymphocytes Platelet Estimate Normal PT INR APTT Sodium 136 Potassium 3.8 Chloride 105 Carbon Dioxide 21 L BUN 12 Creatinine 1.03 Est GFR ( Amer) > 60 Est GFR (Non-Af Amer) > 60 BUN/Creatinine Ratio 12 Glucose 98 Calculated Osmolality 282 Lactic Acid Calcium 7.8 L Phosphorus 4.3 Magnesium 1.9 Iron 10 L % Saturation 3 L Transferrin 208 Ferritin Total Bilirubin 0.5 Direct Bilirubin 0.2 Indirect Bilirubin 0.3 AST 59 H ALT 63 H Alkaline Phosphatase 90 Ammonia 37 Troponin I Serum Total Protein 5.9 L Albumin 3.1 L Globulin 2.8 Albumin/Globulin Ratio 1.1 Lipase Urine Color Urine Clarity Urine pH Ur Specific [place] Urine Protein Urine Glucose (UA) Urine Ketones Urine Blood Urine Nitrite Urine Bilirubin Urine Urobilinogen Ur Leukocyte Esterase Urine Microscopic RBC Urine Microscopic WBC Ur Squamous Epith Cells Amorphous Sediment Urine Bacteria Hyaline Casts Ur Culture Indicated? Urine Opiates Screen Acetaminophen < 10 L Ur Barbiturates Screen Ur Phencyclidine Scrn Ur Amphetamines Screen U Benzodiazepines Scrn Urine Cocaine Screen U Marijuana (THC) Screen Ur Drug Screen Interp [place] Total Antibody Hepatitis A IgM Ab Hep Bs Antigen Hep B Core IgM Ab Hepatitis C Ab Screen Infectious Brown Assay 10/22/18 12:13 WBC RBC Hgb Hct MCV MCH MCHC RDW Plt Count MPV Immature Gran % Seg Neutrophils % Lymphocytes % Monocytes % Eosinophils % Basophils % Neutrophils # Lymphocytes # Monocytes # Eosinophils # Basophils # Reactive Lymphocytes Platelet Estimate PT INR APTT Sodium Potassium Chloride Carbon Dioxide BUN Creatinine Est GFR ( Amer) Est GFR (Non-Af Amer) BUN/Creatinine Ratio Glucose Calculated Osmolality Lactic Acid Calcium Phosphorus Magnesium Iron % Saturation Transferrin Ferritin 24 Total Bilirubin Direct Bilirubin Indirect Bilirubin AST ALT Alkaline Phosphatase Ammonia Troponin I Serum Total Protein Albumin Globulin Albumin/Globulin Ratio Lipase Urine Color Urine Clarity Urine pH Ur Specific [place] Urine Protein Urine Glucose (UA) Urine Ketones Urine Blood Urine Nitrite Urine Bilirubin Urine Urobilinogen Ur Leukocyte Esterase Urine Microscopic RBC Urine Microscopic WBC Ur Squamous Epith Cells Amorphous Sediment Urine Bacteria Hyaline Casts Ur Culture Indicated? Urine Opiates Screen Acetaminophen Ur Barbiturates Screen Ur Phencyclidine Scrn Ur Amphetamines Screen U Benzodiazepines Scrn Urine Cocaine Screen U Marijuana (THC) Screen Ur Drug Screen Interp Lyme Total Antibody Hepatitis A IgM Ab Hep Bs Antigen Hep B Core IgM Ab Hepatitis C Ab Screen Infectious Brown Assay Consult Discharge Plan - Plan Referrals: Daniel Monahan MD [Primary Care Provider] - Inpatient Charges Provider: Dr. Sheri Chow
[2018-10-22] MEDS: Azithromycin 500 MG in D5% in Water 250 ML IVPB SCH (13:50)
[2018-10-22] MEDS ORDERED: Ibuprofen 600 MG TABLET PO ONE (20:04)
[2018-10-23] MEDS: *HR* Heparin 5,000 UNIT/ML VIAL SQ SCH ×2 (05:48→17:48)
[2018-10-23 06:35] LABS: Hematocrit 33.1 % (37.5-50.1); Hemoglobin 9.5 g/dL (12.9-16.9); Immature Granulocytes % 0.9 % (0-4); Mean Corpuscular HGB Conc 28.7 g/dL (31.6-35.5); Mean Platelet Volume 9.4 fL (9.4-12.4)
[2018-10-23 06:36] LABS: Basophils % 0.7 %; Eosinophils # 0.1 K/mcL (0.0-0.6); Eosinophils % 1.9 %; Lymphocytes # 2.6 K/mcL (0.6-4.6); Lymphocytes % 59.7 %; Mean Corpuscular Volume 73.2 fL (83.0-100.0); Monocytes # 0.4 K/mcL (0.0-1.3); Monocytes % 9.4 %; Neutrophils # 1.2 K/mcL (1.6-8.9); Platelet Count 278 K/mcL (140-400); Red Blood Count 4.52 M/mcL (4.19-5.50); Red Cell Distribution Width 18.4 % (11.5-14.5); Segmented Neutrophils % 27.4 %; White Blood Count 4.3 K/mcL (4.3-11.1)
[2018-10-23 06:37] LABS: Immature Reticulocyte % 33.4 % (11.0-38.0); Retculocyte # 0.06 M/mcL (0.05-0.10); Reticulocyte % 1.3 % (1.6-2.8)
[2018-10-23 06:54] LABS: Alanine Aminotransferase 54 Units/L (7-52); Albumin 3.2 g/dL (3.5-5.7); Albumin/Globulin Ratio 1.1 (1.1-2.2); Alkaline Phosphatase 88 Units/L (34-104); Aspartate Amino Transferase 43 Units/L (13-39); BUN/Creatinine Ratio 10 (6-26); Bilirubin,Total 0.6 mg/dL (0.3-1.0); Blood Urea Nitrogen 9 mg/dL (6-20); Calcium 8.6 mg/dL (8.6-10.3); Carbon Dioxide 24 mEq/L (23-29); Chloride 105 mEq/L (98-107); Glucose 86 mg/dL (70-105); Osmolality,Calculated 282 (280-300); Potassium 3.9 mEq/L (3.5-5.1); Sodium 137 mEq/L (136-145); Total Protein 6.2 g/dL (6.4-8.9); eGFR For African Americans > 60 (> 60); eGFR For Non-African Americans > 60 (> 60)
[2018-10-23 07:20] LABS: Hypochromasia Present (Not Present)
[2018-10-23 07:21] LABS: Anisocytosis 1+ (Not Present); Platelet Estimate Normal (Normal)
[2018-10-23] MEDS: cefTRIAXone 1,000 MG in Water for inj. (sterile) 20 ML 10 ML IVP SCH (09:10)
--- NOTE | 2018-10-23 11:13 | Internal Med Progress Note ---
Hospitalist Progress Note - Encounter Date of Encounter: 10/23/18 Time of Encounter: 09:15 - Subjective Interval History: Reports improvement in his generalized weakness. Continues to have dry cough intermittently. Eyes melena, hematochezia, or bright red blood per rectum. Tachycardia improved. Tmax 101.4 at 230pm yesterday. - Exam Vitals: Temp Pulse Resp BP Pulse Ox 98.7 F 108 14 117/75 98 10/23/18 11:06 10/23/18 11:06 10/23/18 11:06 10/23/18 11:06 10/23/18 11:06 Exam: General: Alert and oriented, not in acute distress. Cardiovascular:Normal S1 & S2, No JVD. Pulse regular. Lungs: clear to auscultation, unable to appreciate any rhonchi or wheezes Abdomen:Soft, non-tender, no rigidity. NO appreciable splenomegaly Extremities:No deformity or swelling Neurological:Normal cognition and motor skills. Non-focal - Assessment and Plan (1) Fever Current Visit: Yes Status: Acute Assessment and Plan: presented with generalized weakness and fever, incidentally found to have anemia, splenomegaly and R LL PNA (although he has very minimal pulmonary symptoms) although PNA can certainly explain his fever, other findings raise suspicion for lymphoma especially with the additional finding of paratracheal lymphadenopathy on CT chest lyme ab -ve, mono -ve will treat PNA with IV Peyton/azithromycin. Tmax 101.4 at 230pm yesterday. Will monitor his temp pattern on IV abx today appreciate heme/onc will check respiratory viral panel as well follow up on blood cultures (2) Lymphadenopathy of head and neck Current Visit: Yes Status: Acute Assessment and Plan: although it could be reactive to PNA, the overall findings are certainly suspicious for lymphoma discussed with IR/Pulmonology, EBUS is certainly a possibility but would treat PNA first and repeat imaging before taking the tissue sample unless he develops significant B symptoms heme/onc input appreciated for repeat CT neck in 8 weeks (3) Splenomegaly Current Visit: Yes Status: Acute Assessment and Plan: with the additional findings as above, concerning for lymphoma GI/oncology consulted (4) Anemia Current Visit: Yes Status: Acute Assessment and Plan: no signs and symptoms of GI bleed ?Splenic sequestration. Although LDH is marginally elevated, retic count is low with normal bilirubin. Haptoglobin pending iron deficiency noted, started on Fe supplementation GI input appreciated, for outpatient EGD/colonoscopy (5) Transaminitis Current Visit: Yes Status: Acute Assessment and Plan: Hepatitis panel negative, no hepatobiliary process noted on imaging studies improving, continue to monitor workup sent by [facility] up as outpatient (6) ED (acute kidney injury) Current Visit: Yes Status: Resolved Assessment and Plan: normalized with IVF (7) Pneumonia Current Visit: Yes Status: Acute Assessment and Plan: complains of minimal dry cough with imaging studies consistent with RLL PNA IV Peyton/azithro as above strep/legionella ag pending, RIP ordered DVT Prophylaxis: SQ heparin - Time Spent with Patient Total time spent is greater than 50% in coordination of care (as documented) at patient's floor/unit and/or counseling patient: 25 - 35 minutes Plan of Care Discussed with: patient Internal Medicine: Result - Labs CBC & Chem 7: 10/23/18 05:43 10/23/18 05:43 Labs: Short CBC 10/23/18 Range/Units 05:43 WBC 4.3 (4.3-11.1) K/mcL Hgb 9.5 L (12.9-16.9) g/dL Hct 33.1 L (37.5-50.1) % Plt Count 278 (140-400) K/mcL Neutrophils # 1.2 L (1.6-8.9) K/mcL BMP 10/23/18 05:43 Sodium 137 Potassium 3.9 Chloride 105 Carbon Dioxide 24 BUN 9 Creatinine 0.93 Glucose 86 Calcium 8.6 Liver Function 10/23/18 Range/Units 05:43 Total Bilirubin 0.6 (0.3-1.0) mg/dL AST 43 H (13-39) Units/L ALT 54 H (7-52) Units/L Alkaline Phosphatase 88 (34-104) Units/L Albumin 3.2 L (3.5-5.7) g/dL - ABG Interpretation ABG results: PT/INR, D-dimer PT 17.3 Seconds (9.4-12.1) H 10/21/18 18:08 - Impressions Impressions Abdomen/Pelvis CT 10/22/18 00:01 IMPRESSION: 1. Right lower lobe pneumonia. Follow-up imaging is recommended after treatment to ensure resolution. 2. Enlarged right paratracheal lymph node measuring 2.1 x 1.8 x 2.6 cm located at level 6. This is indeterminate but concerning for a possible neoplastic process. Consider tissue sampling for further evaluation. 3. Diffuse abnormal wall thickening of the esophagus suggestive of an esophagitis. EGD is suggested for further evaluation. 4. Splenomegaly of uncertain etiology. D/ / 10/22/2018 10:37:57 Cisco Leavitt MD / [email or web address] Interpreting Provider: Cisco Leavitt MD Chest CT 10/22/18 00:01 IMPRESSION: 1. Right lower lobe pneumonia. Follow-up imaging is recommended after treatment to ensure resolution. 2. Enlarged right paratracheal lymph node measuring 2.1 x 1.8 x 2.6 cm located at level 6. This is indeterminate but concerning for a possible neoplastic process. Consider tissue sampling for further evaluation. 3. Diffuse abnormal wall thickening of the esophagus suggestive of an esophagitis. EGD is suggested for further evaluation. 4. Splenomegaly of uncertain etiology. D/ / 10/22/2018 10:37:57 Cisco Leavitt MD / [email or web address] Interpreting Provider: Cisco Leavitt MD Consult Discharge Plan - Plan Referrals: Daniel Monahan MD [Primary Care Provider] - (1) Fever Qualifiers: Fever type: unspecified Qualified Code(s): R50.9 - Fever, unspecified (4) Anemia Qualifiers: Anemia type: iron deficiency Iron deficiency anemia type: unspecified iron deficiency Qualified Code(s): D50.9 - Iron deficiency anemia, unspecified (7) Pneumonia Qualifiers: Pneumonia type: due to unspecified organism Laterality: right Lung location: lower lobe of lung Qualified Code(s): J18.1 - Lobar pneumonia, unspecified organism
[2018-10-23 11:48] LABS: Adenovirus Not Detected (Not Detect); Bordetella Pertussis Not Detected (Not Detect); Chlamydophila pneumoniae Not Detected (Not Detect); Coronavirus 229E Not Detected (Not Detect); Coronavirus HKU1 Not Detected (Not Detect); Coronavirus NL63 Not Detected (Not Detect); Coronavirus OC43 Not Detected (Not Detect); Human Metapneumovirus Not Detected (Not Detect); Human Rhinovirus/Enterovirus Not Detected (Not Detect); Influenza A Subtype 2009 H1 Not Detected (Not Detect); Influenza A Untypeable Not Detected (Not Detect); Influenza B Not Detected (Not Detect); Mycoplasma pneumoniae Not Detected (Not Detect); Parainfluenza Virus 1 Not Detected (Not Detect); Parainfluenza Virus 2 Not Detected (Not Detect); Parainfluenza Virus 3 Not Detected (Not Detect); Parainfluenza Virus 4 Not Detected (Not Detect); Respiratory Syncytial Virus Not Detected (Not Detect)
[2018-10-23] MEDS: Azithromycin 500 MG in D5% in Water 250 ML IVPB SCH (12:45)
[2018-10-24] MEDS: *HR* Heparin 5,000 UNIT/ML VIAL SQ SCH (05:31)
[2018-10-24 06:31] LABS: Hemoglobin 9.3 g/dL (12.9-16.9); Red Cell Distribution Width 18.2 % (11.5-14.5)
[2018-10-24 06:32] LABS: Hematocrit 32.4 % (37.5-50.1); Mean Corpuscular HGB Conc 28.7 g/dL (31.6-35.5); Mean Corpuscular Hemoglobin 21.3 pg (28.0-33.3); Mean Corpuscular Volume 74.3 fL (83.0-100.0); Mean Platelet Volume 9.7 fL (9.4-12.4); Platelet Count 300 K/mcL (140-400); Red Blood Count 4.36 M/mcL (4.19-5.50); White Blood Count 5.3 K/mcL (4.3-11.1)
[2018-10-24 06:55] LABS: Alanine Aminotransferase 42 Units/L (7-52); Albumin 3.1 g/dL (3.5-5.7); Alkaline Phosphatase 83 Units/L (34-104); Aspartate Amino Transferase 34 Units/L (13-39); BUN/Creatinine Ratio 9 (6-26); Bilirubin,Total 0.4 mg/dL (0.3-1.0); Blood Urea Nitrogen 9 mg/dL (6-20); Calcium 8.6 mg/dL (8.6-10.3); Carbon Dioxide 24 mEq/L (23-29); Chloride 104 mEq/L (98-107); Globulin 3.1 g/dL (2.4-3.5); Glucose 86 mg/dL (70-105); Osmolality,Calculated 280 (280-300); Potassium 4.1 mEq/L (3.5-5.1); Sodium 136 mEq/L (136-145); Total Protein 6.2 g/dL (6.4-8.9); eGFR For African Americans > 60 (> 60); eGFR For Non-African Americans > 60 (> 60)
--- NOTE | 2018-10-24 09:41 | Oncology Inp Progress Note ---
Date of Encounter: 10/24/18 Time of Encounter: 12:15 (1) Splenomegaly Current Visit: Yes Status: Acute Assessment and plan: Clinically, patient has a viral process causing transaminitis, fever, lethargy and resultant right paratracheal adenopathy, periesophageal adenopathy at GEJ and splenomegaly. Reactive lymphocytes present on smear. Low suspicion for lymphoma, and symptoms have improved with tincture of time. He has defervesced and is feeling better. I will arrange for outpatient follow-up in 4 weeks to discuss further management with repeat imaging. (2) Anemia Current Visit: Yes Status: Acute Assessment and plan: He has iron deficiency anemia. This does not appear to be related to diet. Either has malabsorption or chronic blood loss. Agree with outpatient EGD/colonscopy. Received IV iron, continue oral replacement. Qualifiers: Anemia type: iron deficiency Iron deficiency anemia type: unspecified iron deficiency Qualified Code(s): D50.9 - Iron deficiency anemia, unspecified Oncology: Subj Interval history: Feeling better today. No further fever or chills. No headache, blurred or double vision. Cough remains, however. It is nonproductive. No abdominal pain. No bleeding symptoms of hemoptysis, hematemesis, melena or hematochezia. GI recommended outpatient EGD/colonoscopy. - Constitutional General appearance: cooperative, no acute distress, obese - Head Head exam: Present: atraumatic, normal inspection, normocephalic - Eye Eye exam: Present: normal appearance, conjuntiva pink, sclera anicteric - ENT ENT exam: Present: mucous membranes moist, normal exam, normal oropharynx - Neck Neck exam: Present: full ROM, normal inspection - Respiratory Respiratory exam: Present: CTAB - Cardiovascular Cardiovascular exam: Present: RRR - GI/Abdominal GI/Abdominal exam: Present: normal bowel sounds, soft - Extremities Exam Extremities exam: Present: normal inspection - Back Exam Back exam: Present: normal inspection - Neurological Exam Neurological exam: Present: alert, no focal deficits Oncology: Obj Data - Labs CBC & Chem 7: 10/24/18 04:35 10/24/18 04:35 Consult Discharge Plan - Plan Instructions: Sepsis (DC), Anemia (GEN), Pneumonia (DC) Additional Instructions: COmplete a course of PO Augmentin REpeat CT soft tissue neck in 6 weeks and follow up with hematology Iron supplementation started. Follow up with GI for anemia/transaminitis Referrals: Daniel Monahan MD [Primary Care Provider] - Romero Chow MD [Partnered Physician] - Petrnoa Leblanc MD [Partnered Physician] - Prescriptions: Amoxicillin/Clavulanate [Augmentin] 875 mg PO BIDWM 5 Days #10 tablet Ferrous Sulfate 325 mg PO BIDWM #60 tablet Inpatient Charges Provider: Dr. Sheri Chow Follow up - Inpatient: [id number]
--- NOTE | 2018-10-24 09:45 | Discharge Summary ---
- NOTES TO OUTPATIENT PROVIDER Notes to Outpatient Provider: Follow up with Hematology, Pulmonology, and GI as outpatient. Orders not resulted at time of discharge: Pending orders 10/21/18 18:39 Culture,Blood [BC] Stat 10/22/18 04:00 West Nile Virus IgG & IgM Urgent 10/22/18 08:30 Occult Blood,Stool [BF] Routine 10/22/18 12:13 AFP Tumor Marker Non- Routine ABDULLAHI IgG CAITLYN rflx IFA Routine [id number] Routine Celiac Disease Reflex [place] Routine Ceruloplasmin Routine F-Actin IgG Reflex Sm Muscle Routine MPO/PR3 (ANCA) Antibodies Routine Mitochondrial M2 Antibody, IgG Routine 10/23/18 05:43 HIV 1&2 Differential Ab Conf Routine Haptoglobin AM 0400 Date of Encounter: 10/24/18 Time of Encounter: 07:30 - Discharge Diagnosis (1) Fever Priority: Secondary Status: Acute Qualifiers: Fever type: unspecified Qualified Code(s): R50.9 - Fever, unspecified (2) Lymphadenopathy of head and neck Priority: Secondary Status: Acute (3) Splenomegaly Priority: Secondary Status: Acute (4) Anemia Priority: Secondary Status: Acute Qualifiers: Anemia type: iron deficiency Iron deficiency anemia type: unspecified iron deficiency Qualified Code(s): D50.9 - Iron deficiency anemia, unspecified (5) Transaminitis Priority: Secondary Status: Acute (6) ED (acute kidney injury) Priority: Secondary Status: Resolved (7) Pneumonia Priority: Primary Status: Acute Qualifiers: Pneumonia type: due to unspecified organism Laterality: right Lung location: lower lobe of lung Qualified Code(s): J18.1 - Lobar pneumonia, unspecified organism Hospital course: Mr. Montero is a 27 year old male with no significant past mental history was admitted for generalized weakness, fatigue, and fever. Found to have R LL PNA but is also found to have anemia with iron deficiency, mile splenomegaly, R paratracheal lymphadenopathy, and transaminitis. Monospot -ve, lyme ab -ve, hep -ve, respiratory viral panel -ve. His fever eventually subsided on IV Alex/azithromycin. Seen in consultation with hematology and GI, likely a viral syndrome, but will arrange follow up for lymphadenoapthy as well as anemia/transaminitis with esophageal thickening. Pt is also started on PO Supplement. In case of persistent lymphadenopathy, pt would likely require EBUS by pulmonology. Discharge discussed with: patient, nurse, social work, case management, cisco consultant - Time Spent with Patient Total time spent providing and/or coordinating discharge services: 33 mins - Discharge Medications Prescriptions: New Amoxicillin/Clavulanate [Augmentin] 875 mg PO BIDWM 5 Days #10 tablet Ferrous Sulfate 325 mg PO BIDWM #60 tablet Continued Acetaminophen [Tylenol] 650 mg PO DAILY PRN PRN Reason: Headache Home Medications: Acetaminophen [Tylenol] 650 mg PO DAILY PRN 10/21/18 [History] Amoxicillin/Clavulanate [Augmentin] 875 mg PO BIDWM 5 Days #10 tablet 10/24/18 [Rx] Ferrous Sulfate 325 mg PO BIDWM #60 tablet 10/24/18 [Rx] Allergies/Adverse Reactions: Allergy/AdvReac Type Severity Reaction Status Date / Time No Known Allergies Allergy Verified 10/21/18 22:18 Date of admission: 10/21/18 22:16 Primary care physician: Daniel Monahan MD Consults: 10/21/18 23:04 Consult to Gastroenterology [CONS] Routine Consulting Provider: Gastroenterology Nellie Reason for Consult: Acute liver injury of unclear etiology Call Completed: No 10/22/18 11:40 Consult to Oncology Hematology [CONS] Routine Consulting Provider: Jolly Alvarado Reason for Consult: Splenomegaly, anemia, and paratracheal lymphadenopathy ?lymphoma Call Completed: Yes - Constitutional Vitals: Temp Pulse Resp BP Pulse Ox 98.1 F 91 14 119/75 96 10/24/18 06:45 10/24/18 06:45 10/24/18 06:45 10/24/18 06:45 10/24/18 06:45 Exam: General: Alert and oriented, not in acute distress. Cardiovascular:Normal S1 & S2, No JVD. Pulse regular. Lungs: clear to auscultation, unable to appreciate any rhonchi or wheezes Abdomen:Soft, non-tender, no rigidity. NO appreciable splenomegaly Extremities:No deformity or swelling Neurological:Normal cognition and motor skills. Non-focal - Patient Status Disposition: Home, Self-Care Condition: Fair Functional capacity at discharge: independent ambulation Overall status at discharge: patient is progressing back to baseline - Discharge Instructions Instructions: Anemia (GEN), Pneumonia (DC) Follow Up With: Daniel Monahan MD [Primary Care Provider] - Romero Chow MD [Partnered Physician] - Petrona Leblanc MD [Partnered Physician] - Additional Instructions: COmplete a course of PO Augmentin REpeat CT soft tissue neck in 6 weeks and follow up with hematology Iron supplementation started. Follow up with GI for anemia/transaminitis - Diet and Activity Activity: resume usual activities as tolerated Diet: regular diet
[2018-10-24] MEDS: cefTRIAXone 1,000 MG in Water for inj. (sterile) 20 ML 10 ML IVP SCH (09:59)
[2018-10-24 10:29] VITALS: BP 114/80
[2018-10-24 10:37] LABS: AFP Tumor Marker Non-Pregnant 1 ng/mL (0-9)
[2018-10-24 10:45] LABS: Immunoglobulin A (CELIAC) 224 mg/dL (68-408)
[2018-10-24 21:45] LABS: HIV-1 Ab Supplemental NEGATIVE (Negative); HIV-2 Ab Supplemental NEGATIVE (Negative)
[2018-10-25 11:15] LABS: F-Actin (sm muscle) Ab IgG 12 Units (0-19)
[2018-10-25 11:16] LABS: ANA IgG by ELISA DETECTED (None Detected); Tissue Transglutaminase IgA 1 U/mL (0-3)
[2018-10-26 16:29] LABS: ANA HEp-2 IgG IFA DETECTED (<1:80); Anti Nuclear Ab Pattern SPECKLED
== END 2018-10-24 01:53 | disposition home or self-care (01) ==
LOC: EMEROOARM 17:54 → 3ANU 17:54 → SUATTDRO 22:16 → 3ANU 23:14
PROVIDERS: ADMIT Internal Medicine; ATTEND Internal Medicine

== ENCOUNTER 2018-10-28 13:41 | Inpatient (IN) ==
--- NOTE | 2018-10-28 13:56 | Emergency Department Note ---
Disposition Clinical Impression: Tachycardia, Splenomegaly Nausea and vomiting Qualifiers: Vomiting type: unspecified Vomiting Intractability: unspecified Qualified Code(s): R11.2 - Nausea with vomiting, unspecified Pulmonary emboli Qualifiers: Pulmonary embolism type: other Chronicity: acute Acute cor pulmonale presence: without acute cor pulmonale Qualified Code(s): I26.99 - Other pulmonary embolism without acute cor pulmonale Pneumonia Qualifiers: Pneumonia type: due to unspecified organism Laterality: bilateral Lung location: lower lobe of lung Qualified Code(s): J18.1 - Lobar pneumonia, unspecified organism Disposition: Admitted As Inpatient Condition: Fair Time of Disposition: 18:53 General Adult HPI - General Chief complaint: ED Nausea/Vomiting/Diarrhea Stated complaint: N/V Time Seen by Provider: 10/28/18 13:55 Source: patient Limitations: no limitations Nursing Notes Reviewed: Yes Vital Signs Reviewed: Yes - History of Present Illness HPI Narrative: Patient is a 27-year-old male who is presenting with recurrent nausea and vomiting with fatigue. Patient was recently discharged from the hospital following 3 weeks of nausea, vomiting, fatigue diagnosed with a viral syndrome as well as anemia and lymphadenopathy. While here in the hospital, patient had oncology consult with outpatient follow-up. Patient states that since being discharged she has had no change in his symptoms, has had continued nausea with vomiting, he has no hematemesis or melena, however he has been unable to keep anything down, he has been on Zofran and has absolutely no appetite. He did also continues to have left flank pain. He denies any recent fall or trauma. 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 He also states that he was diagnosed with pneumonia he was placed on Augmentin has been taking this course. He denies any new cough. No recent fevers or chills. Pain Scale: 7 - Related Data Home Medications Medication Instructions Recorded Confirmed Acetaminophen [Tylenol] 650 mg PO DAILY PRN 10/21/18 10/28/18 Previous Rx's Medication Instructions Recorded Ferrous Sulfate 325 mg PO BIDWM #60 tablet 10/24/18 Rivaroxaban [Xarelto] 1 dose PO AD 30 Days #1 pack 10/29/18 Allergies Allergy/AdvReac Type Severity Reaction Status Date / Time No Known Allergies Allergy Verified 10/21/18 22:18 All systems ED: reviewed and negative except as stated. Review of Systems: As Per HPI Constitutional: Reports: weakness. Denies: fever, chills ENT ED: Denies: congestion Cardiovascular: Denies: chest pain, palpitations, dyspnea on exertion, edema Respiratory: Denies: cough, dyspnea, wheezes, hemoptysis, stridor, sputum production Gastrointestinal: Reports: abdominal pain, nausea, vomiting. Denies: diarrhea, hematemesis, melena, hematochezia Genitourinary: Denies: urgency Musculoskeletal: Denies: back pain Integumentary: Denies: rash Neurological: Reports: weakness. Denies: headache, numbness, confusion Endocrine: Reports: fatigue Past Medical History - Past Medical History Medical history: Reports: GERD Psychiatric history: Reports: ADHD - Social History Smoking Status: Never smoker Smokeless Tobacco Status: No Alcohol use: Reports: none Drug use: Reports: none Physical Exam General: Conversant. Patient appears pale, diaphoretic and unwell Neck: No JVD. Trachea midline. Neck supple. Eyes: PERRL. No scleral icterus. HENT: Normocephalic and atraumatic. Moist mucus membranes. Cardiovascular: Tachycardic and regular Normal S1 and S2. No murmurs appreciated. Normal capillary refill. Extremities well perfused with 2+ distal pulses bilaterally. No edema. Pulmonary: Normal and equal breath sounds bilaterally, anteriorly and posteriorly. No wheezes, rales, or rhonchi. Not in respiratory distress. Speaks in full sentences. Abdomen: Soft, nondistended, left flank tenderness No bruits or masses. No guarding or rebound. Neuro: Alert and oriented x3. No slurred speech. No focal deficits noted. Skin: No rashes noted on visualized skin. Musculoskeletal: No bony abnormalities visualized. Moves all extremities. Psych: Normal mood. Pleasant. Makes appropriate eye contact. - General Limitations: no limitations General appearance: alert, in no apparent distress Course Vital Signs Temperature 99.7 F H 10/28/18 13:43 Pulse Rate 121 10/28/18 13:43 Respiratory Rate 20 10/28/18 13:43 Blood Pressure 124/80 10/28/18 13:43 O2 Sat by Pulse Oximetry 97 10/28/18 13:43 Temperature 99.7 F H 10/28/18 13:43 Pulse Rate 115 10/28/18 20:47 Respiratory Rate 20 10/28/18 20:47 Blood Pressure 130/75 10/28/18 20:47 O2 Sat by Pulse Oximetry 98 10/28/18 20:47 Oxygen Delivery Oxygen Delivery Room Air Medical Decision Making - MDM Narrative Medical decision making narrative: Patient is a 27-year-old male who was recent discharge from the hospital secondary to 3 weeks of fatigue, nausea, vomiting fevers chills was 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 Patient presents tachycardic, appears unwell and diap horetic but in no acute distress. He is normotensive and afebrile. Initial presentation, patient states that he was diagnosed with pneumonia as well and has been placed on Augmentin. He has been taking this course. At this point in time, we will give the patient 1 L of normal saline, we will also try antiemetic, as well as pain medication. We will order labs to rule out new or worsening signs of infection or electrolyte abnormality. CBC is relatively unremarkable actually better than her prior admission. BMP as well as unchanged. LFT and lipase are appropriate. Following 1 L normal saline, patient remains tachycardic and symptomatic, we will continue with a second liter. We did also speak with Dr. Chow, states that from his perspective this is does not seem as though it is malignancy rather a viral syndrome with reactive lymphadenopathy, does not request further imaging at this time. Feels as though the patient needs symptom management and he would be appropriate for inpatient admission however from a heme long standpoint there is nothing further that he would like to be performed. Chest x-ray shows no acute abnormality. However he he continues to be tachycardic with a rate in the 120s, we will give a third liter normal saline, as patient does seem somewhat dry on exam although not necessarily reflected on laboratory work. We did discuss outpatient versus admission at this point in time, as patient remained still anorexic at this point, we will give the patient Phenergan as he does not feel episodes Zofran is helpful, patient states with the Phenergan he has had decreased nausea and feels as though he would be able to eat, he was able to only keep down a few Goldfish crackers but says he is unable to eat anything further. Patient remains tachycardic without a particular reason at this time despite fluid resuscitation. Patient is remained afebrile and normotensive. As patient has had continue tachycardia despite fluid resuscitation we will also perform a CTA of the chest, with concern for further into cardiopulmonary etiology. We will hold off on further antibiotics at this time, as patient started on Augmentin. He did take his dose today. I was called by radiology at 1946 that the patient has multiple segmental and subsegmental emboli with possible infarct. At this point in time patient will be started on heparin. He will be admitted. - Medical Records Medical records reviewed: Yes I reviewed the patient's medical records. - Lab Data Lab results reviewed: Yes I reviewed the patient's lab results. Result diagrams: 11/02/18 01:12 11/02/18 01:12 Lab Results 10/28/18 10/28/18 10/28/18 Range/Units 13:08 14:10 14:10 WBC 9.5 D (4.3-11.1) K/mcL RBC 5.12 (4.19-5.50) M/mcL Hgb 11.6 L D (12.9-16.9) g/dL Hct 38.7 (37.5-50.1) % MCV 75.6 L (83.0-100.0) fL MCH 22.7 L (28.0-33.3) pg MCHC 30.0 L (31.6-35.5) g/dL RDW 21.4 H (11.5-14.5) % Plt Count 322 (140-400) K/mcL MPV 8.9 L (9.4-12.4) fL Seg Neutrophils % 28.0 % Band Neutrophils % 2.0 (0-4) % Lymphocytes % 64.0 % Monocytes % 6.0 % Neutrophils # 2.9 (1.6-8.9) K/mcL Lymphocytes # 6.1 H (0.6-4.6) K/mcL Monocytes # 0.6 (0.0-1.3) K/mcL Reactive Lymphocytes Present A (Not Present) Platelet Estimate Normal (Normal) Polychromasia 1+ A (Not Present) Anisocytosis 2+ A (Not Present) PT (9.4-12.1) Seconds INR Heparin Anti-Xa, Unfract (0.30-0.70) IU/mL Sodium 136 (136-145) mEq/L Potassium 4.1 (3.5-5.1) mEq/L Chloride 104 (98-107) mEq/L Carbon Dioxide 22 L (23-29) mEq/L BUN 11 (6-20) mg/dL Creatinine 0.99 (0.70-1.30) mg/dL Est GFR ( Amer) > 60 (> 60) Est GFR (Non-Af Amer) > 60 (> 60) BUN/Creatinine Ratio 11 (6-26) Glucose 101 (70-105) mg/dL Calculated Osmolality 282 (280-300) Lactic Acid (0.5-2.2) mmol/L Calcium 9.0 (8.6-10.3) mg/dL Total Bilirubin 0.6 (0.3-1.0) mg/dL Direct Bilirubin 0.3 H (0.0-0.2) mg/dL Indirect Bilirubin 0.3 (0.0-1.2) mg/dL AST 30 (13-39) Units/L ALT 44 (7-52) Units/L Alkaline Phosphatase 93 (34-104) Units/L Serum Total Protein 7.1 (6.4-8.9) g/dL Albumin 3.6 (3.5-5.7) g/dL Globulin 3.5 (2.4-3.5) g/dL Albumin/Globulin Ratio 1.0 L (1.1-2.2) Lipase 41 (11-82) Units/L Urine Color Dark Yellow (Yellow) Urine Clarity Clear (Clear) Urine pH 5.5 (5.0-8.0) pH Units Ur Specific [place] 1.027 H (1.010-1.025) Urine Protein 30 H (Neg-Trace) mg/dL Urine Glucose (UA) Normal (Normal) mg/dL Urine Ketones 15 H (Negative) mg/dL Urine Blood Negative (Negative) Urine Nitrite Negative (Negative) Urine Bilirubin Small H (Negative) Urine Urobilinogen Normal (Normal) mg/dL Ur Leukocyte Esterase Negative (Negative) Urine Microscopic RBC 0-3 (0-3) per hpf Urine Microscopic WBC 0-3 (0-3) per hpf Ur Squamous Epith Cells Moderate H (None-Few) per lpf Urine Bacteria None Seen (None-Few) per hpf Hyaline Casts None Seen (None-Few) per lpf 06/27/19 06/27/19 06/27/19 Range/Units 14:39 20:05 20:05 WBC 7.7 (4.3-11.1) K/mcL RBC 4.32 (4.19-5.50) M/mcL Hgb 9.6 L D (12.9-16.9) g/dL Hct 32.8 L (37.5-50.1) % MCV 75.9 L (83.0-100.0) fL MCH 22.2 L (28.0-33.3) pg MCHC 29.3 L (31.6-35.5) g/dL RDW 21.2 H (11.5-14.5) % Plt Count 257 (140-400) K/mcL MPV 8.6 L (9.4-12.4) fL Seg Neutrophils % % Band Neutrophils % (0-4) % Lymphocytes % % Monocytes % % Neutrophils # (1.6-8.9) K/mcL Lymphocytes # (0.6-4.6) K/mcL Monocytes # (0.0-1.3) K/mcL Reactive Lymphocytes (Not Present) Platelet Estimate (Normal) Polychromasia (Not Present) Anisocytosis (Not Present) PT 19.9 H (9.4-12.1) Seconds INR 1.8 Heparin Anti-Xa, Unfract 0.01 L (0.30-0.70) IU/mL Sodium (136-145) mEq/L Potassium (3.5-5.1) mEq/L Chloride (98-107) mEq/L Carbon Dioxide (23-29) mEq/L BUN (6-20) mg/dL Creatinine (0.70-1.30) mg/dL Est GFR ( Amer) (> 60) Est GFR (Non-Af Amer) (> 60) BUN/Creatinine Ratio (6-26) Glucose (70-105) mg/dL Calculated Osmolality (280-300) Lactic Acid 1.0 (0.5-2.2) mmol/L Calcium (8.6-10.3) mg/dL Total Bilirubin (0.3-1.0) mg/dL Direct Bilirubin (0.0-0.2) mg/dL Indirect Bilirubin (0.0-1.2) mg/dL AST (13-39) Units/L ALT (7-52) Units/L Alkaline Phosphatase (34-104) Units/L Serum Total Protein (6.4-8.9) g/dL Albumin (3.5-5.7) g/dL Globulin (2.4-3.5) g/dL Albumin/Globulin Ratio (1.1-2.2) Lipase (11-82) Units/L Urine Color (Yellow) Urine Clarity (Clear) Urine pH (5.0-8.0) pH Units Ur Specific [place] (1.010-1.025) Urine Protein (Neg-Trace) mg/dL Urine Glucose (UA) (Normal) mg/dL Urine Ketones (Negative) mg/dL Urine Blood (Negative) Urine Nitrite (Negative) Urine Bilirubin (Negative) Urine Urobilinogen (Normal) mg/dL Ur Leukocyte Esterase (Negative) Urine Microscopic RBC (0-3) per hpf Urine Microscopic WBC (0-3) per hpf Ur Squamous Epith Cells (None-Few) per lpf Urine Bacteria (None-Few) per hpf Hyaline Casts (None-Few) per lpf - Radiology Data Radiology results reviewed: Yes I reviewed the patient's radiology results. Chest X-Ray 10/28/18 14:10 IMPRESSION: Negative chest. D/ / Luciano Mendoza MD / Luciano Mendoza MD Interpreting Provider: Luciano Mendoza MD - EKG Data EKG #1 EKG attestation: Yes I reviewed and interpreted this EKG. EKG results narrative: EKG obtained at 1353 with ventricular rate 117, regular rhythm, normal axis, no ST segment elevation, depression and obsessive T-wave changes. Attestation Statement - Attestation Attestation: I have seen this patient with the resident physician, I have personally evaluated this patient. I had reviewed the chart and document dictation by the resident physician and aM in agreement with the information documented by the resident physician. Please see documentation by the resident physician for complete chart including past medical history, family medical history, review of systems, current history and physical and laboratory and imaging studies. I was present for all procedures, provided direct supervision for all procedures, was present for the entirety of all procedures and provided direct guidance during the procedures. Please see documentation by the resident physician for any procedures performed. I have reviewed all interpretations of EKGs, and reviewed all EKGs performed on patient's as well. I have also reviewed reports of imaging as provided by ra villalta.
[2018-10-28] MEDS ORDERED: 0.9 % Sodium Chloride 1,000 ML IVC ONE ×3 (14:11→16:40)
[2018-10-28 14:37] LABS: Hematocrit 38.7 % (37.5-50.1); Mean Corpuscular Hemoglobin 22.7 pg (28.0-33.3); Mean Corpuscular Volume 75.6 fL (83.0-100.0); Mean Platelet Volume 8.9 fL (9.4-12.4); Platelet Count 322 K/mcL (140-400); Red Blood Count 5.12 M/mcL (4.19-5.50); Red Cell Distribution Width 21.4 % (11.5-14.5)
[2018-10-28 14:47] LABS: Alanine Aminotransferase 44 Units/L (7-52); Albumin 3.6 g/dL (3.5-5.7); Alkaline Phosphatase 93 Units/L (34-104); Aspartate Amino Transferase 30 Units/L (13-39); BUN/Creatinine Ratio 11 (6-26); Bilirubin,Direct 0.3 mg/dL (0.0-0.2); Bilirubin,Indirect 0.3 mg/dL (0.0-1.2); Bilirubin,Total 0.6 mg/dL (0.3-1.0); Blood Urea Nitrogen 11 mg/dL (6-20); Carbon Dioxide 22 mEq/L (23-29); Chloride 104 mEq/L (98-107); Globulin 3.5 g/dL (2.4-3.5); Glucose 101 mg/dL (70-105); Lipase 41 Units/L (11-82); Osmolality,Calculated 282 (280-300); Potassium 4.1 mEq/L (3.5-5.1); Sodium 136 mEq/L (136-145); Total Protein 7.1 g/dL (6.4-8.9); eGFR For African Americans > 60 (> 60); eGFR For Non-African Americans > 60 (> 60)
[2018-10-28] MEDS ORDERED: *HR* FentaNYL (PF) 100 MCG/2 ML VIAL IVP ONE ×2 (14:50→17:49)
[2018-10-28 15:13] LABS: Hemoglobin 11.6 g/dL (12.9-16.9); White Blood Count 9.5 K/mcL (4.3-11.1)
[2018-10-28 15:27] LABS: Lymphocytes # 6.1 K/mcL (0.6-4.6); Monocytes # 0.6 K/mcL (0.0-1.3); Neutrophils # 2.9 K/mcL (1.6-8.9)
[2018-10-28 15:28] LABS: Anisocytosis 2+ (Not Present); Platelet Estimate Normal (Normal); Polychromasia 1+ (Not Present); Reactive Lymphocytes Present (Not Present)
[2018-10-28 15:35] LABS: Bilirubin,Urine Small (Negative); Blood,Urine Negative (Negative); Clarity,Urine Clear (Clear); Color,Urine Dark Yellow (Yellow); Glucose,Urine (UA) Normal (Normal); Ketones,Urine 15 mg/dL (Negative); Leukocyte Esterase,Urine Negative (Negative); Nitrite,Urine Negative (Negative); PH,Urine 5.5 pH Units (5.0-8.0); Protein,Urine 30 mg/dL (Neg-Trace); Specific Gravity,Urine 1.027 (1.010-1.025); Urobilinogen,Urine Normal (Normal)
[2018-10-28 15:38] LABS: Bacteria,Urine None Seen per hpf (None-Few); Hyaline Casts,Urine None Seen per lpf (None-Few); RBC,Urine 0-3 per hpf (0-3); Squamous Epithelial Cell,Urine Moderate per lpf (None-Few); WBC,Urine 0-3 per hpf (0-3)
[2018-10-28] MEDS ORDERED: *HR* Promethazine 25 MG/ML VIAL IVP ONE (16:40)
[2018-10-28] MEDS ORDERED: Isovue-370 500 ML BOTTLE IVP ONE (18:44)
--- NOTE | 2018-10-28 19:07 | Emergency Department Note ---
Disposition Clinical Impression: Tachycardia, Viral syndrome Nausea and vomiting Qualifiers: Vomiting type: unspecified Vomiting Intractability: unspecified Qualified Code(s): R11.2 - Nausea with vomiting, unspecified Disposition: Admitted As Inpatient Condition: Fair Referrals: Daniel Monahan MD [Primary Care Provider] - Forms: ED Satisfaction Letter Time of Disposition: 19:29 General Adult HPI - General Chief complaint: ED Nausea/Vomiting/Diarrhea Stated complaint: N/V Time Seen by Provider: 10/28/18 13:55 Source: patient Limitations: no limitations - History of Present Illness Pain Scale: 7 - Related Data Home Medications Medication Instructions Recorded Confirmed Acetaminophen [Tylenol] 650 mg PO DAILY PRN 10/21/18 10/28/18 Previous Rx's Medication Instructions Recorded Amoxicillin/Clavulanate [Augmentin] 875 mg PO BIDWM 5 Days #10 tablet 10/24/18 Ferrous Sulfate 325 mg PO BIDWM #60 tablet 10/24/18 Allergies Allergy/AdvReac Type Severity Reaction Status Date / Time No Known Allergies Allergy Verified 10/21/18 22:18 Constitutional: Reports: weakness. Denies: fever, chills ENT ED: Denies: congestion Cardiovascular: Denies: chest pain, palpitations, dyspnea on exertion, edema Respiratory: Denies: cough, dyspnea, wheezes, hemoptysis, stridor, sputum production Gastrointestinal: Reports: abdominal pain, nausea, vomiting. Denies: diarrhea, hematemesis, melena, hematochezia Genitourinary: Denies: urgency Musculoskeletal: Denies: back pain Integumentary: Denies: rash Neurological: Reports: weakness. Denies: headache, numbness, confusion Endocrine: Reports: fatigue Past Medical History - Past Medical History Medical history: Reports: GERD Psychiatric history: Reports: ADHD - Social History Smoking Status: Never smoker Smokeless Tobacco Status: No Alcohol use: Reports: none Drug use: Reports: none Physical Exam - General Limitations: no limitations General appearance: alert, in no apparent distress Course Vital Signs Temperature 99.7 F H 10/28/18 13:43 Pulse Rate 121 10/28/18 13:43 Respiratory Rate 20 10/28/18 13:43 Blood Pressure 124/80 10/28/18 13:43 O2 Sat by Pulse Oximetry 97 10/28/18 13:43 Temperature 99.7 F H 10/28/18 13:43 Pulse Rate 119 10/28/18 18:09 Respiratory Rate 22 10/28/18 18:09 Blood Pressure 134/83 10/28/18 18:09 O2 Sat by Pulse Oximetry 98 10/28/18 18:09 Oxygen Delivery Oxygen Delivery Room Air Medical Decision Making - Lab Data Result diagrams: 10/28/18 14:10 10/28/18 14:10 Lab Results 10/28/18 10/28/18 10/28/18 Range/Units 13:08 14:10 14:10 WBC 9.5 D (4.3-11.1) K/mcL RBC 5.12 (4.19-5.50) M/mcL Hgb 11.6 L D (12.9-16.9) g/dL Hct 38.7 (37.5-50.1) % MCV 75.6 L (83.0-100.0) fL MCH 22.7 L (28.0-33.3) pg MCHC 30.0 L (31.6-35.5) g/dL RDW 21.4 H (11.5-14.5) % Plt Count 322 (140-400) K/mcL MPV 8.9 L (9.4-12.4) fL Seg Neutrophils % 28.0 % Band Neutrophils % 2.0 (0-4) % Lymphocytes % 64.0 % Monocytes % 6.0 % Neutrophils # 2.9 (1.6-8.9) K/mcL Lymphocytes # 6.1 H (0.6-4.6) K/mcL Monocytes # 0.6 (0.0-1.3) K/mcL Reactive Lymphocytes Present A (Not Present) Platelet Estimate Normal (Normal) Polychromasia 1+ A (Not Present) Anisocytosis 2+ A (Not Present) Sodium 136 (136-145) mEq/L Potassium 4.1 (3.5-5.1) mEq/L Chloride 104 (98-107) mEq/L Carbon Dioxide 22 L (23-29) mEq/L BUN 11 (6-20) mg/dL Creatinine 0.99 (0.70-1.30) mg/dL Est GFR ( Amer) > 60 (> 60) Est GFR (Non-Af Amer) > 60 (> 60) BUN/Creatinine Ratio 11 (6-26) Glucose 101 (70-105) mg/dL Calculated Osmolality 282 (280-300) Lactic Acid (0.5-2.2) mmol/L Calcium 9.0 (8.6-10.3) mg/dL Total Bilirubin 0.6 (0.3-1.0) mg/dL Direct Bilirubin 0.3 H (0.0-0.2) mg/dL Indirect Bilirubin 0.3 (0.0-1.2) mg/dL AST 30 (13-39) Units/L ALT 44 (7-52) Units/L Alkaline Phosphatase 93 (34-104) Units/L Serum Total Protein 7.1 (6.4-8.9) g/dL Albumin 3.6 (3.5-5.7) g/dL Globulin 3.5 (2.4-3.5) g/dL Albumin/Globulin Ratio 1.0 L (1.1-2.2) Lipase 41 (11-82) Units/L Urine Color Dark Yellow (Yellow) Urine Clarity Clear (Clear) Urine pH 5.5 (5.0-8.0) pH Units Ur Specific [place] 1.027 H (1.010-1.025) Urine Protein 30 H (Neg-Trace) mg/dL Urine Glucose (UA) Normal (Normal) mg/dL Urine Ketones 15 H (Negative) mg/dL Urine Blood Negative (Negative) Urine Nitrite Negative (Negative) Urine Bilirubin Small H (Negative) Urine Urobilinogen Normal (Normal) mg/dL Ur Leukocyte Esterase Negative (Negative) Urine Microscopic RBC 0-3 (0-3) per hpf Urine Microscopic WBC 0-3 (0-3) per hpf Ur Squamous Epith Cells Moderate H (None-Few) per lpf Urine Bacteria None Seen (None-Few) per hpf Hyaline Casts None Seen (None-Few) per lpf 10/28/18 Range/Units 14:39 WBC (4.3-11.1) K/mcL RBC (4.19-5.50) M/mcL Hgb (12.9-16.9) g/dL Hct (37.5-50.1) % MCV (83.0-100.0) fL MCH (28.0-33.3) pg MCHC (31.6-35.5) g/dL RDW (11.5-14.5) % Plt Count (140-400) K/mcL MPV (9.4-12.4) fL Seg Neutrophils % % Band Neutrophils % (0-4) % Lymphocytes % % Monocytes % % Neutrophils # (1.6-8.9) K/mcL Lymphocytes # (0.6-4.6) K/mcL Monocytes # (0.0-1.3) K/mcL Reactive Lymphocytes (Not Present) Platelet Estimate (Normal) Polychromasia (Not Present) Anisocytosis (Not Present) Sodium (136-145) mEq/L Potassium (3.5-5.1) mEq/L Chloride (98-107) mEq/L Carbon Dioxide (23-29) mEq/L BUN (6-20) mg/dL Creatinine (0.70-1.30) mg/dL Est GFR ( Amer) (> 60) Est GFR (Non-Af Amer) (> 60) BUN/Creatinine Ratio (6-26) Glucose (70-105) mg/dL Calculated Osmolality (280-300) Lactic Acid 1.0 (0.5-2.2) mmol/L Calcium (8.6-10.3) mg/dL Total Bilirubin (0.3-1.0) mg/dL Direct Bilirubin (0.0-0.2) mg/dL Indirect Bilirubin (0.0-1.2) mg/dL AST (13-39) Units/L ALT (7-52) Units/L Alkaline Phosphatase (34-104) Units/L Serum Total Protein (6.4-8.9) g/dL Albumin (3.5-5.7) g/dL Globulin (2.4-3.5) g/dL Albumin/Globulin Ratio (1.1-2.2) Lipase (11-82) Units/L Urine Color (Yellow) Urine Clarity (Clear) Urine pH (5.0-8.0) pH Units Ur Specific [place] (1.010-1.025) Urine Protein (Neg-Trace) mg/dL Urine Glucose (UA) (Normal) mg/dL Urine Ketones (Negative) mg/dL Urine Blood (Negative) Urine Nitrite (Negative) Urine Bilirubin (Negative) Urine Urobilinogen (Normal) mg/dL Ur Leukocyte Esterase (Negative) Urine Microscopic RBC (0-3) per hpf Urine Microscopic WBC (0-3) per hpf Ur Squamous Epith Cells (None-Few) per lpf Urine Bacteria (None-Few) per hpf Hyaline Casts (None-Few) per lpf Attestation Statement - Attestation Attestation: I have seen this patient with the resident physician, I have personally evaluated this patient. I had reviewed the chart and document dictation by the resident physician and aM in agreement with the information documented by the resident physician. Please see documentation by the resident physician for co mplete chart including past medical history, family medical history, review of systems, current history and physical and laboratory and imaging studies. I was present for all procedures, provided direct supervision for all procedures, was present for the entirety of all procedures and provided direct guidance during the procedures. Please see documentation by the resident physician for any procedures performed. I have reviewed all interpretations of EKGs, and reviewed all EKGs performed on patient's as well. I have also reviewed reports of imaging as provided by radiology. Patient presents to the emergency department with chief complaint of nausea vomiting some left flank pain and body aches and chills and not feeling well. He was just admitted for this same thing, discharged 3 days ago, was given Augmentin and nausea medication prescriptions for continues to have progressive symptoms of the above. He had a significant workup that showed transaminitis, anemia, findings concerning for potential reactive lymphadenopathy versus potential underlying cancer, pneumonia, and he has had progressively worsening symptoms. He was found to be tachycardic and low-grade temperature elevation upon arrival of 99.7, heart rate 120. Initial EKG was a sinus rhythm sinus tachycardia heart rate of 117. Patient's symptoms were treated, he was given 3 L of IV fluids, nausea medi cation, pain medication, he did have improvement of his symptoms and was able to start taking a small amount of oral intake but very limited before getting nauseated again. He remained persistently tachycardic, with heart rates in the 126 EKG is just a sinus tachycardia. Basic laboratory studies actually show significant improvement, normalized transaminases renal panel within acceptable limits, CBC with improved hemoglobin. Chest x-ray showed interval improvement of right lower lobe infiltrate. Patient had tested positive for West Nile virus, although was only IgG positive and was IgM negative he had already been tested for mono and several other things upon admission, he did have some AMA positivity as well. He was seen by hematology oncology in the hospital. We did contact hematology oncology, who did not feel there is any emergency department testing the be further evaluated, could consider admission to the hospital for symptom control, but did not feel anything from a hematologic standpoint emergently. Secondary to the patient's persistent tachycardia despite 3 L of IV fluids, persistent symptoms, it was felt that admission to the hospital was appropriate, we did order a CT PE protocol at the time of admission as well for unexplained tachycardia, although he is not hypoxic and seemed to deny shortness of breath currently he was however recently admitted he has had decreased movement and exertion related to his recent illness. The patient's lactic acid was within acceptable limits as well, apart from his tachycardia he has no other findings of systemic inflammatory response syndrome apart from original elevated temperature 99.7 he has already had Augmentin tod ay, did not give any further IV antibiotics in the emergency department as he already is taking antibiotics, laboratory studies are reassuring.
[2018-10-28] MEDS ORDERED: *HR* Heparin 5,000 UNIT/ML VIAL IVP PRN ×2 (19:48)
[2018-10-28] MEDS ORDERED: *HR* Heparin 5,000 UNIT/ML VIAL IVP ONE (19:48)
[2018-10-28 20:15] LABS: Hematocrit 32.8 % (37.5-50.1); Mean Corpuscular HGB Conc 29.3 g/dL (31.6-35.5); Mean Corpuscular Hemoglobin 22.2 pg (28.0-33.3); Mean Corpuscular Volume 75.9 fL (83.0-100.0); Mean Platelet Volume 8.6 fL (9.4-12.4); Platelet Count 257 K/mcL (140-400); Red Blood Count 4.32 M/mcL (4.19-5.50); Red Cell Distribution Width 21.2 % (11.5-14.5); White Blood Count 7.7 K/mcL (4.3-11.1)
[2018-10-28 20:24] LABS: Heparin anti-factor XA UFH 0.01 IU/mL (0.30-0.70)
[2018-10-28 20:25] LABS: INR 1.8; Prothrombin Time 19.9 Seconds (9.4-12.1)
[2018-10-28 20:28] LABS: Hemoglobin 9.6 g/dL (12.9-16.9)
[2018-10-28] MEDS: Heparin 25,000 UNIT/250 ML D5W 25,000 UNIT/250 ML IV.SOLN IVC SCH (20:41)
[2018-10-28] MEDS ORDERED: Ondansetron 4 MG/2 ML VIAL IVP PRN (21:52)
[2018-10-28] MEDS ORDERED: Naloxone 0.4 MG/ML INJ IVP PRN (21:52)
[2018-10-28] MEDS ORDERED: Acetaminophen 325 MG TABLET PO PRN (21:52)
[2018-10-28] MEDS ORDERED: traMADol 50 MG TABLET PO PRN (21:52)
[2018-10-28] MEDS ORDERED: levoFLOXacin 750 MG/150 ML 750 MG/150 ML BAG IVPB SCH (22:00)
--- NOTE | 2018-10-28 23:32 | Internal Med History&Physical ---
Date of Encounter: 10/28/18 Time of Encounter: 21:15 Internal Medicine - H&P: HPI Chief complaint: chest pain; cough; SOB Admitted From: Emergency Dept Plans for Post Hospital Care: Home History of present illness: Mr. Montero is a 27 year old male who presents to the ER tonight with complaints of nausea, vomiting, fatigue, chest pain, shortness breath, and cough. He was just discharged a few days ago from recent hospital stay for pneumonia and suspected viral syndrome. Despite antibiotics, he failed to improve. He therefore came to the hospital for worsening symptoms and new onset chest pain. Workup in ER revealed patient to have bilateral pulmonary emboli on CTA of the chest. He was started on heparin drip and admitted to hospitalist service. Upon my assessment of the patient, he appears chronically ill-appearing but nontoxic. He is not having any active chest pain. He is tachycardic and mildly short of breath. He admits to having had fevers and chills but no night sweats. He had some blood-tinged sputum production. Appetite has been diminished but fluid intake has been stable. He has had some vomiting and nausea, however. I reviewed his old records and most recent hospital stay. Given his splenomegaly mediastinal lymphadenopathy, and new finding of pulmonary emboli, I am quite concerned about lymphoma or other underlying malignancy. Furthermore, he has significant microcytic anemia and is due to have endoscopy. I therefore contacted Dr. Chow and Dr. Lomax and discussed the case with them. He will undergo EGD tomorrow and then pursue further oncologic workup as necessary per oncology. I discussed this with patient and family and they are all aware and agree with the plan. Past Med Surg Social Fam HX - Past Medical History Attestation: Yes The following information was validated with the patient. Source: patient, old records reviewed, obtained from family Medical history: GERD Psychiatric history: ADHD - Past Surgical History Surgical History: no surgical history - Social History Smoking Status: Never smoker Smokeless Tobacco Status: No Alcohol use: none Drug use: none Occupational status: unemployed Current living situation: Home, With Family Activity Level: Independent ambulation Recent Out of Country Travel Within the Last 8 Weeks: No - Family History Mother Living Status: Still Living Hx Family Cancer: No Father Living Status: Still Living Hx Family Cancer: No - Additional Family History Additional family history: + FH DVT's -- [facility] – [place] Internal Medicine - H&P: Meds Acetaminophen [Tylenol] 650 mg PO DAILY PRN 10/21/18 [History] Amoxicillin/Clavulanate [Augmentin] 875 mg PO BIDWM 5 Days #10 tablet 10/24/18 [Rx] Ferrous Sulfate 325 mg PO BIDWM #60 tablet 10/24/18 [Rx] Allergy/AdvReac Type Severity Reaction Status Date / Time No Known Allergies Allergy Verified 10/21/18 22:18 - Constitutional Constitutional: fatigue, fever(s), malaise, weakness, no chills, no night sweats - EENT Eyes: no blurry vision, no change in vision Ears: no ear pain, no tinnitus Nose, mouth and throat: nasal congestion, no sinus pressure, no sore throat - Cardiovascular Cardiovascular ROS IM: chest pain, dyspnea, dyspnea on exertion, palpitations, no lightheadedness, no paroxysmal nocturnal dyspnea, no syncope - Respiratory Respiratory: cough, dyspnea, hemoptysis (blood tinged sputum), chest congestion, change in phlegm color, pain with cough, no pain on inspiration - Gastrointestinal Gastrointestinal: nausea, vomiting, no abdominal pain, no diarrhea, no hematemesis, no hematochezia, no melena - Genitourinary Genitourinary ROS male: no dysuria, no flank pain, no hematuria - Musculoskeletal Musculoskeletal ROS IM: no arthralgias, no back pain - Integumentary Integumentary IM: no rash, no jaundice - Neurological Neurological ROS: no convulsions, no disequilibrium, no dizziness, no focal weakness, no frequent falls - Psychiatric Psychiatric: no anxiety, no depression - Endocrine Endocrine IM: no cold intolerance, no heat intolerance, no polydipsia, no polyphagia, no polyuria - Hematologic/Lymphatic Hematologic/Lymphatic: lymphadenopathy, no easy bruising - Allergic/Immunologic Allergic/Immunologic: no wheezing, no GI upset with certain foods - Constitutional Vitals: Temp Pulse Resp BP Pulse Ox 99.7 F H 115 18 124/76 96 10/28/18 13:43 10/28/18 22:37 10/28/18 22:37 10/28/18 22:37 10/28/18 22:37 General appearance: Present: cooperative, A&O X 3, pleasant Exam: ill-appearing; non-toxic; breathing comfortably - Head Head exam: Present: atraumatic, normal inspection - Eye Eye exam: Present: EOMI, PERRL. Absent: scleral icterus Pupils: Present: normal accommodation - ENT ENT exam: Present: mucous membranes dry, mucous membranes moist, normal oropharynx - Neck Neck exam general surgery: Present: full ROM, lymphadenopathy, supple, trachea midline. Absent: tenderness, nuchal rigidity, thyromegaly - Respiratory Respiratory exam: Present: rhonchi. Absent: chest wall tenderness, prolonged expiratory phase, rales, wheezes Additional comments: mild splinting with deep inspiration and cough; trace blood tinged sputum - Cardiovascular Cardiovascular exam: Present: RRR, +S1, +S2, tachycardia (HR 110's). Absent: diastolic murmur, systolic murmur - GI/Abdominal GI/Abdominal exam: Present: normal bowel sounds, soft. Absent: guarding, hepatomegaly, mass, rebound, tenderness - Extremities Exam Extremities exam: Present: full ROM, normal capillary refill, warm, radial pulses palpable and symmetrical. Absent: calf tenderness, pedal edema, tenderness - Back Exam Back exam: Present: normal inspection. Absent: CVA tenderness (L), CVA tenderness (R) - Neurological Exam Neurological exam: Present: alert, CN II-XII intact, no focal deficits, strengths equal and symetr throughout - Psychiatric Psychiatric exam: Present: flat affect. Absent: anxious - Skin Skin exam: Present: dry, intact, pallor, warm Internal Med - H&P Results - Labs CBC & Chem 7: 10/28/18 20:05 10/28/18 14:10 Labs: Short CBC 10/28/18 10/28/18 Range/Units 14:10 20:05 WBC 9.5 D 7.7 (4.3-11.1) K/mcL Hgb 11.6 L D 9.6 L D (12.9-16.9) g/dL Hct 38.7 32.8 L (37.5-50.1) % Plt Count 322 257 (140-400) K/mcL Neutrophils # 2.9 (1.6-8.9) K/mcL BMP 10/28/18 14:10 Sodium 136 Potassium 4.1 Chloride 104 Carbon Dioxide 22 L BUN 11 Creatinine 0.99 Glucose 101 Calcium 9.0 Liver Function 10/28/18 Range/Units 14:10 Total Bilirubin 0.6 (0.3-1.0) mg/dL Direct Bilirubin 0.3 H (0.0-0.2) mg/dL AST 30 (13-39) Units/L ALT 44 (7-52) Units/L Alkaline Phosphatase 93 (34-104) Units/L Albumin 3.6 (3.5-5.7) g/dL Urine 10/28/18 Range/Units 13:08 Urine Color Dark Yellow (Yellow) Urine Clarity Clear (Clear) Urine pH 5.5 (5.0-8.0) pH Units Ur Specific [place] 1.027 H (1.010-1.025) Urine Protein 30 H (Neg-Trace) mg/dL Urine Glucose (UA) Normal (Normal) mg/dL - EKG Data -: EKG Interpreted by Myself - EKG Data Prior EKG available for review: no EKG comments: 10/28/18 23:40 Sinus tachycardia; no acute St-T changes - Impressions ITS Impressions Chest X-Ray 10/28/18 14:10 IMPRESSION: Negative chest. D/ / Luciano Mendoza MD / Luciano Mendoza MD Interpreting Provider: Luciano Mendoza MD Chest CTA 10/28/18 18:44 IMPRESSION: Bilateral lower lobe lung segmental and subsegmental pulmonary emboli. Peripheral bibasilar airspace disease, greater on the left since the prior study, likely infarcts. Wall thickening of the esophagus suspicious for acute inflammation. Endoscopy could be performed as clinically warranted. Fluid is present within the mid esophagus. Mediastinal and hilar adenopathy. Follow-up is recommended. Findings were discussed with Phil Bashir at 7:45 pm on 10/28/2018. D/ / Lashaun Rees Cha, MD / Lashaun Rees Cha, MD Interpreting Provider: Lashaun Rees Cha, MD - Diagnostic Studies Chest x-ray Status: image reviewed by me (negative; CTA chest report reviewed ) - Assessment and Plan (1) Bilateral pulmonary embolism Current Visit: Yes Status: Acute Assessment and plan: 1. Continue heparin drip -- standard protocol. 2. ECHO and BLE Dopplers ordered. 3. Transition to oral anticoagulants after completion of invasive work-up and/or biopsy. 4. Discussed with Dr. Chow and Dr. Lomax. (2) Pneumonia Current Visit: Yes Status: Acute Assessment and plan: 1. Partially treated. 2. Blood and sputum cultures ordered. 3. Will continue IV Levaquin, oxygen as needed, and PRN aerosols. Qualifiers: Pneumonia type: due to unspecified organism Laterality: bilateral Lung location: lower lobe of lung Qualified Code(s): J18.1 - Lobar pneumonia, unspecified organism (3) Anemia Current Visit: Yes Status: Chronic Assessment and plan: 1. Per history and recent lab review, patient has microcytic anemia with iron deficiency. 2. Patient will need EGD and colonoscopy to evaluate for blood loss. 3. Monitor for bleeding while on heparin drip. Qualifiers: Anemia type: iron deficiency Iron deficiency anemia type: unspecified iron deficiency Qualified Code(s): D50.9 - Iron deficiency anemia, unspecified (4) DVT prophylaxis Current Visit: Yes Status: Acute Assessment and plan: 1. Heparin drip as above.
[2018-10-29] MEDS: 0.9 % Sodium Chloride w KCl 20 MEQ/1,000 ML MLS IVC SCH ×2 (00:14→09:28)
[2018-10-29 03:21] LABS: Basophils % 0.5 %; Eosinophils # 0.1 K/mcL (0.0-0.6); Hematocrit 34.3 % (37.5-50.1); Immature Granulocytes % 1.5 % (0-4); Lymphocytes # 3.2 K/mcL (0.6-4.6); Lymphocytes % 39.6 %; Mean Corpuscular HGB Conc 29.2 g/dL (31.6-35.5); Mean Corpuscular Hemoglobin 22.4 pg (28.0-33.3); Mean Corpuscular Volume 76.7 fL (83.0-100.0); Mean Platelet Volume 9.1 fL (9.4-12.4); Monocytes # 0.8 K/mcL (0.0-1.3); Monocytes % 9.8 %; Neutrophils # 3.9 K/mcL (1.6-8.9); Platelet Count 282 K/mcL (140-400); Red Blood Count 4.47 M/mcL (4.19-5.50); Red Cell Distribution Width 21.2 % (11.5-14.5); Segmented Neutrophils % 47.6 %; White Blood Count 8.1 K/mcL (4.3-11.1)
[2018-10-29 03:30] LABS: Prothrombin Time 22.8 Seconds (9.4-12.1)
[2018-10-29 03:44] LABS: Alanine Aminotransferase 33 Units/L (7-52); Albumin 3.1 g/dL (3.5-5.7); Alkaline Phosphatase 78 Units/L (34-104); Aspartate Amino Transferase 22 Units/L (13-39); BUN/Creatinine Ratio 12 (6-26); Bilirubin,Total 0.6 mg/dL (0.3-1.0); Blood Urea Nitrogen 10 mg/dL (6-20); Calcium 8.3 mg/dL (8.6-10.3); Carbon Dioxide 18 mEq/L (23-29); Chloride 107 mEq/L (98-107); Globulin 3.2 g/dL (2.4-3.5); Glucose 153 mg/dL (70-105); Magnesium 1.9 mg/dL (1.6-2.6); Osmolality,Calculated 282 (280-300); Potassium 4.1 mEq/L (3.5-5.1); Sodium 135 mEq/L (136-145); Total Protein 6.3 g/dL (6.4-8.9); eGFR For African Americans > 60 (> 60); eGFR For Non-African Americans > 60 (> 60)
[2018-10-29 04:04] LABS: Platelet Estimate Normal (Normal); Reactive Lymphocytes Present (Not Present)
[2018-10-29 04:05] LABS: Anisocytosis 1+ (Not Present); Poikilocytosis 1+ (Not Present)
[2018-10-29] MEDS: Pantoprazole 40 MG VIAL IVP SCH (09:28)
[2018-10-29] MEDS: Heparin 25,000 UNIT/250 ML D5W 25,000 UNIT/250 ML IV.SOLN IVC SCH ×2 (15:24→20:45)
[2018-10-29] MEDS: levoFLOXacin 750 MG TABLET PO SCH (15:32)
--- NOTE | 2018-10-29 16:28 | Internal Med Progress Note ---
Hospitalist Progress Note - Encounter Date of Encounter: 10/29/18 Time of Encounter: 08:00 - Subjective Interval History: Patient was seen and examined at bedside. Father at bedside. All questions answered. has no complaints. understands that he will need to remain NPO fir EGD. all imaging discussed with father an patient and they understand. he denies any previous sexually transmitted diseases. has no SOb currently denies chest pain. has had no fever or chills. - Exam Vitals: Temp Pulse Resp BP Pulse Ox 98.2 F 100 19 142/96 97 10/29/18 15:38 10/29/18 15:38 10/29/18 15:38 10/29/18 15:38 10/29/18 15:38 Exam: General: Patient is alert, oriented, no acute distress, obese, unkept. Head: atraumatic, normocephalic, Eye: normal appearance, PERRL, no scleral icterus, no conjunctival injection ENT: mucous membranes moist, normal external ear exam Neck: normal inspection, trachea midline, full ROM,could not appreciate lymphadenopathy Chest: normal inspection, symmetric chest rise Respiratory:decreased breath sounds secondary to body habitus, occasional crackles in bertha posterior lung field Cardiovascular: tachycardic. s1 and s2 No clicks, rubs, gallops, or murmors. Abdomen: Bowel sounds present normoactive x-4 quadrants. Abdomen is soft, n ondistended. no Epigastric tenderness. No guarding or rebound. No organomegaly noted, obese musculoskeletal: Spontaneously moving all extremities. no edema, no calf tenderness Skin: warm, dry, intact. Neuro: Alert and oriented x3, no focal deficit Psych: Patient's affect is normal - Assessment and Plan (1) Bilateral pulmonary embolism Current Visit: Yes Status: Acute Assessment and Plan: Continue heparin drip -- standard protocol. no right heart strain on TTE- full report below Transition to oral anticoagulants after completion of invasive work-up and/or biopsy. pulm consulted TTE-Impressions: LVEF 60-65%. Normal LV chamber size, wall thickness and function. Normal right ventricular structure and function. No significant valvular dysfunction. No evidence of pulmonary hypertension. (2) Pneumonia Current Visit: Yes Status: Acute Assessment and Plan: was recently admitted and treated discharged on 10/24 MRSA nasal swab continue with levaquin urine antigens were negative last week pulmonology consulted will follow recs procalcitoin 0.21 bcx in process respiratory viral panel negative except for [place] IgG which was positive (3) Lymphadenopathy Current Visit: Yes Status: Acute Assessment and Plan: oncology on board had mediastenal lymphadenopathy and splenomegaly consulted pulm for possible bronch and biopsy will follow oncology recs (4) Anemia Current Visit: Yes Status: Chronic Assessment and Plan: Per history and recent lab review, patient has microcytic anemia with iron deficiency. GI on board for EGD continue to monitor H/h closely hematology on board continue ferrous sulfate (5) DVT prophylaxis Current Visit: Yes Status: Acute Assessment and Plan: DVT prophylaxis - Time Spent with Patient Total time spent is greater than 50% in coordination of care (as documented) at patient's floor/unit and/or counseling patient: Internal Medicine: Result - Labs CBC & Chem 7: 10/29/18 03:01 10/29/18 03:01 Labs: Short CBC 10/28/18 10/29/18 Range/Units 20:05 03:01 WBC 7.7 8.1 (4.3-11.1) K/mcL Hgb 9.6 L D 10.0 L (12.9-16.9) g/dL Hct 32.8 L 34.3 L (37.5-50.1) % Plt Count 257 282 (140-400) K/mcL Neutrophils # 3.9 (1.6-8.9) K/mcL BMP 10/29/18 03:01 Sodium 135 L Potassium 4.1 Chloride 107 Carbon Dioxide 18 L BUN 10 Creatinine 0.82 Glucose 153 H Calcium 8.3 L Liver Function 10/29/18 Range/Units 03:01 Total Bilirubin 0.6 (0.3-1.0) mg/dL AST 22 (13-39) Units/L ALT 33 (7-52) Units/L Alkaline Phosphatase 78 (34-104) Units/L Albumin 3.1 L (3.5-5.7) g/dL - ABG Interpretation ABG results: PT/INR, D-dimer PT 22.8 Seconds (9.4-12.1) H 10/29/18 03:01 - Impressions Impressions Chest CTA 10/28/18 18:44 IMPRESSION: Bilateral lower lobe lung segmental and subsegmental pulmonary emboli. Peripheral bibasilar airspace disease, greater on the left since the prior study, likely infarcts. Wall thickening of the esophagus suspicious for acute inflammation. Endoscopy could be performed as clinically warranted. Fluid is present within the mid esophagus. Mediastinal and hilar adenopathy. Follow-up is recommended. Findings were discussed with Phil Bashir at 7:45 pm on 10/28/2018. D/ / Lashaun Rees Cha, MD / Lashaun Rees Cha, MD Interpreting Provider: Lashaun Rees Cha, MD Echocardiogram 10/29/18 21:59 Impressions: LVEF 60-65%. Normal LV chamber size, wall thickness and function. Normal right ventricular structure and function. No significant valvular dysfunction. No evidence of pulmonary hypertension. Left Ventricular Wall Motion: Rest Echo Findings All wall segments showed normal motion. Findings: Study Quality * Technically adequate exam. ECG Findings * Sinus rhythm with PACs. Left Ventricle * LVEF 60-65%. * Normal LV chamber size, wall thickness and systolic function. * Normal left ventricular diastolic function. Right Ventricle * Normal right ventricular structure and function. Left Atrium * Normal left atrial size. Right Atrium * Normal right atrial size. Interatrial Septum * Interatrial septum not well evaluated. * No evidence of PFO by color Doppler. Aortic Valve * Trileaflet aortic valve with normal function. * No aortic stenosis. * No aortic regurgitation. Mitral Valve * Normal mitral valve structure. * No mitral stenosis. * Trace mitral regurgitation. Tricuspid Valve * Normal tricuspid valve structure. * No tricuspid stenosis. * Trace tricuspid regurgitation. * Unable to estimate RVSP due to lack of TR jet. * No evidence of pulmonary hypertension. * Estimated RA pressure is 3 mmHg. Pulmonic Valve * Pulmonic valve is not well visualized. * No pulmonic stenosis. * No pulmonic regurgitation. Aorta * Normally sized aortic root. Pericardium * The pericardium appears normal. IVC * The IVC is not dilated. * > 50% respiratory change Consult Discharge Plan - Plan Referrals: Daniel Monahan MD [Primary Care Provider] - Prescriptions: Rivaroxaban [Xarelto] 1 dose PO AD 30 Days #1 pack (2) Pneumonia Qualifiers: Pneumonia type: due to unspecified organism Laterality: bilateral Lung location: lower lobe of lung Qualified Code(s): J18.1 - Lobar pneumonia, unspecified organism (4) Anemia Qualifiers: Anemia type: iron deficiency Iron deficiency anemia type: unspecified iron deficiency Qualified Code(s): D50.9 - Iron deficiency anemia, unspecified
--- NOTE | 2018-10-29 16:30 | Oncology Inp Consult Note ---
<Biju Jonas Jr - Last Filed: 10/29/18 17:11> Date of Encounter: 10/29/18 Time of Encounter: 13:00 Assessment and Plan (1) Lymphadenopathy of head and neck Status: Acute Assessment and plan: Patient was seen on his most recent admission on 10/24/[address] Romero Chow at [facility] for lymphadenopathy of suspected reactive origin and anemia. Patient was readmitted to the hospital on 10/28/2018 for a multiple complaints including nausea and vomiting, fatigue and malaise, chest pain, shortness of breath. In the emergency room he was found to have bilateral lower lobe lung segmental and subsegmental pulmonary emboli. Also, esophageal wall thickening, for which an EGD has been scheduled, patient's currently nothing by mouth. Dr. Roger who is on-call for oncology, and, she spoke to Dr. Chow by phone today. Our recommendation is to schedule an outpatient appointment with Dr. Shaan Franco to do a lymph node biopsy in 4 weeks from now. In addition, for PE, transition to xarelto as outpatient, as this is will be preferable to coumadin since he will need to stop anticoagulation in 4 weeks to get lymph node biopsy. Dr Roger will add any further recommendations (2) Pulmonary emboli Status: Acute Qualifiers: Pulmonary embolism type: other Chronicity: acute Acute cor pulmonale p resence: without acute cor pulmonale Qualified Code(s): I26.99 - Other pulmonary embolism without acute cor pulmonale (3) Splenomegaly Status: Acute - Data of Consult Patient: new to practice Consult date: 10/29/18 Requesting Physician: Shaan Brandon MD Primary Care Provider: Daniel Monahan MD - Consult Narrative Reason for consult: lymphadenopathy History of present illness: The patient is a 27-year-old male that was admitted to the hospital last week for a probable viral process causing transaminitis, fever, lethargy and r esultant right paratracheal adenopathy, periesophageal adenopathy at GEJ and splenomegaly. Reactive lymphocytes present on smear. At that time, a low suspicion for lymphoma, and symptoms had improved with time. He was seen by Dr. Romero Chow at the [facility] on October 24 for inpatient consult. It was decided that time the patient will follow-up with Dr. Chow as outpatient follow-up in 4 weeks to discuss further management with repeat imaging due to lymphadenopathy. In addition, he has iron deficiency anemia. Differential at that time was either has malabsorption or chronic blood loss. We agreed with outpatient EGD/colonscopy. Received IV iron, continue oral replacement. She will return to the emergency department on 10/28/2018 for repeated nausea and vomiting episodes, malaise and generalized weakness and fatigue. Any MRSA part patient was found to have a pulmonary embolism and was admitted to the hospital for further evaluation and treatment. Past Med Surg Social Fam HX - Past Medical History Medical history: GERD Psychiatric history: ADHD - Past Surgical History Surgical History: no surgical history - Social History Smoking Status: Never smoker Smokeless Tobacco Status: No Alcohol use: none Drug use: none - Family History Mother Living Status: Still Living Hx Family Cancer: No Father Living Status: Still Living Hx Family Cancer: No Medications and Allergies Acetaminophen [Tylenol] 650 mg PO DAILY PRN 10/21/18 [History] Ferrous Sulfate 325 mg PO BIDWM #60 tablet 10/24/18 [Rx] Rivaroxaban [Xarelto] 1 dose PO AD 30 Days #1 pack 10/29/18 [Rx] Allergy/AdvReac Type Severity Reaction Status Date / Time No Known Allergies Allergy Verified 10/21/18 22:18 Constitutional: Present: fatigue, malaise Gastrointestinal: Present: vomiting Oncology Inpatient Results Labs: Laboratory Last Values WBC 8.1 K/mcL (4.3-11.1) 10/29/18 03:01 RBC 4.47 M/mcL (4.19-5.50) 10/29/18 03:01 Hgb 10.0 g/dL (12.9-16.9) L 10/29/18 03:01 Hct 34.3 % (37.5-50.1) L 10/29/18 03:01 MCV 76.7 fL (83.0-100.0) L 10/29/18 03:01 MCH 22.4 pg (28.0-33.3) L 10/29/18 03:01 MCHC 29.2 g/dL (31.6-35.5) L 10/29/18 03:01 RDW 21.2 % (11.5-14.5) H 10/29/18 03:01 Plt Count 282 K/mcL (140-400) 10/29/18 03:01 MPV 9.1 fL (9.4-12.4) L 10/29/18 03:01 Immature Gran % 1.5 % (0-4) 10/29/18 03:01 Seg Neutrophils % 47.6 % 10/29/18 03:01 2.0 % (0-4) 10/28/18 14:10 39.6 % 10/29/18 03:01 9.8 % 10/29/18 03:01 1.0 % 10/29/18 03:01 0.5 % 10/29/18 03:01 3.9 K/mcL (1.6-8.9) 10/29/18 03:01 3.2 K/mcL (0.6-4.6) 10/29/18 03:01 0.8 K/mcL (0.0-1.3) 10/29/18 03:01 0.1 K/mcL (0.0-0.6) 10/29/18 03:01 0.0 K/mcL (0.0-0.2) 10/29/18 03:01 Present (Not Present) A 10/29/18 03:01 Normal (Normal) 10/29/18 03:01 1+ (Not Present) A 10/28/18 14:10 1+ (Not Present) A 10/29/18 03:01 1+ (Not Present) A 10/29/18 03:01 PT 22.8 Seconds (9.4-12.1) H 10/29/18 03:01 INR 2.0 10/29/18 03:01 Heparin Anti-Xa, Unfract 0.45 IU/mL (0.30-0.70) 10/29/18 09:42 Sodium 135 mEq/L (136-145) L 10/29/18 03:01 Potassium 4.1 mEq/L (3.5-5.1) 10/29/18 03:01 Chloride 107 mEq/L (98-107) 10/29/18 03:01 Carbon Dioxide 18 mEq/L (23-29) L 10/29/18 03:01 BUN 10 mg/dL (6-20) 10/29/18 03:01 0.82 mg/dL (0.70-1.30) 10/29/18 03:01 Est GFR ( Amer) > 60 (> 60) 10/29/18 03:01 Est GFR (Non-Af Amer) > 60 (> 60) 10/29/18 03:01 12 (6-26) 10/29/18 03:01 Glucose 153 mg/dL (70-105) H 10/29/18 03:01 282 (280-300) 10/29/18 03:01 Lactic Acid 1.0 mmol/L (0.5-2.2) 10/28/18 14:39 Calcium 8.3 mg/dL (8.6-10.3) L 10/29/18 03:01 Magnesium 1.9 mg/dL (1.6-2.6) 10/29/18 03:01 0.6 mg/dL (0.3-1.0) 10/29/18 03:01 0.3 mg/dL (0.0-0.2) H 10/28/18 14:10 0.3 mg/dL (0.0-1.2) 10/28/18 14:10 AST 22 Units/L (13-39) 10/29/18 03:01 ALT 33 Units/L (7-52) 10/29/18 03:01 78 Units/L (34-104) 10/29/18 03:01 6.3 g/dL (6.4-8.9) L 10/29/18 03:01 3.1 g/dL (3.5-5.7) L 10/29/18 03:01 3.2 g/dL (2.4-3.5) 10/29/18 03:01 1.0 (1.1-2.2) L 10/29/18 03:01 41 Units/L (11-82) 10/28/18 14:10 0.21 ng/mL (0.00-0.15) H 10/29/18 10:55 Dark Yellow (Yellow) 10/28/18 13:08 Clear (Clear) 10/28/18 13:08 5.5 pH Units (5.0-8.0) 10/28/18 13:08 Ur Specific [place] 1.027 (1.010-1.025) H 10/28/18 13:08 30 mg/dL (Neg-Trace) H 10/28/18 13:08 Normal mg/dL (Normal) 10/28/18 13:08 15 mg/dL (Negative) H 10/28/18 13:08 Negative (Negative) 10/28/18 13:08 Negative (Negative) 10/28/18 13:08 Small (Negative) H 10/28/18 13:08 Normal mg/dL (Normal) 10/28/18 13:08 Ur Leukocyte Esterase Negative (Negative) 10/28/18 13:08 0-3 per hpf (0-3) 10/28/18 13:08 0-3 per hpf (0-3) 10/28/18 13:08 Ur Squamous Epith Cells Moderate per lpf (None-Few) H 10/28/18 13:08 None Seen per hpf (None-Few) 10/28/18 13:08 Hyaline Casts None Seen per lpf (None-Few) 10/28/18 13:08 HIV Ag/Ab Combo Qual Nonreactive (Nonreactive) 10/29/18 10:55 Consult Discharge Plan - Plan Referrals: Daniel Monahan MD [Primary Care Provider] - Prescriptions: Rivaroxaban [Xarelto] 1 dose PO AD 30 Days #1 pack Inpatient Charges Provider: Dr. Sheri Roger Consult - Inpatient: [id number] <Tammi Roger - Last Filed: 10/29/18 22:08> Date of Encounter: 10/29/18 - Data of Consult Requesting Physician: Shaan Brandon MD Primary Care Provider: Daniel Monahan MD - Consult Narrative History of present illness: Adenopathy, thought to be reactive, no tissue confirmation-to be arranged as an outpatient due to acute pulmonary embolism. On Iv heparin for sharlene PE. Reports feeling fatigued since prior hospitalization. Feels nauseated, and is NPO, hoping for scope. Viral cx, hepatitis/HIV negative s/p echo. Once ready for discharge switch him to rivaroxaban. Consider hypercoagulable w/u, PE appears to be related to recent hospital stay/?infectious process. I examined this patient and my medical decision-making was reviewed with the Advanced Practice Nurse, Mauro Jonas. I agree with the documented findings, disposition and treatment plan as described except to the extent set forth below. Constitutional: Present: fatigue, malaise Additional comments: denies vision changes or mouth sores/sinus drainage Additional comments: denies palpitations Additional comments: no sob, cough Gastrointestinal: Present: vomiting Additional comments: nauseated. NPO for GI scope Additional comments: denies dysuria or hemarturia Musculoskeletal: Present: back pain Additional comments: no focal wkness Oncology - Exam - Constitutional General appearance: average body habitus, no acute distress - Head Head exam: Present: atraumatic, normal inspection - Eye Eye exam: Present: sclera anicteric - ENT ENT exam: Present: mucous membranes moist - Neck Neck exam: Present: full ROM Additional comments: no palpable nk adenopathy - Respiratory Respiratory exam: Present: CTAB - Cardiovascular Cardiovascular exam: Present: +S1, +S2 - GI/Abdominal GI/Abdominal exam: Present: normal bowel sounds, soft - Extremities Exam Additional comments: denies lower ext edema - Neurological Exam Neurological exam: Present: alert, CN II-XII intact, oriented X3, no focal deficits - Psychiatric Psychiatric exam: Present: flat affect - Skin Skin exam: Present: dry, normal color Oncology Inpatient Results CT imaging sharlene PE, prior imaging data reviewed Inpatient Charges Provider: Dr. Sheri Roger Consult - Inpatient: [id number]
[2018-10-29] MEDS ORDERED: *HR* Rivaroxaban 15 MG TABLET PO SCH (19:00)
[2018-10-30 02:23] LABS: Hematocrit 31.8 % (37.5-50.1); Hemoglobin 9.3 g/dL (12.9-16.9); Mean Corpuscular HGB Conc 29.2 g/dL (31.6-35.5); Mean Corpuscular Volume 75.4 fL (83.0-100.0); Mean Platelet Volume 8.7 fL (9.4-12.4); Platelet Count 263 K/mcL (140-400); Red Blood Count 4.22 M/mcL (4.19-5.50); Red Cell Distribution Width 21.6 % (11.5-14.5); White Blood Count 4.9 K/mcL (4.3-11.1)
[2018-10-30 02:42] LABS: BUN/Creatinine Ratio 11 (6-26); Blood Urea Nitrogen 8 mg/dL (6-20); Calcium 8.1 mg/dL (8.6-10.3); Carbon Dioxide 22 mEq/L (23-29); Chloride 108 mEq/L (98-107); Glucose 92 mg/dL (70-105); Osmolality,Calculated 282 (280-300); Sodium 137 mEq/L (136-145); eGFR For African Americans > 60 (> 60); eGFR For Non-African Americans > 60 (> 60)
--- NOTE | 2018-10-30 05:28 | Electrocardiograph Report ---
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
--- NOTE | 2018-10-30 09:55 | Internal Med Progress Note ---
Hospitalist Progress Note - Encounter Date of Encounter: 10/30/18 Time of Encounter: 08:00 - Subjective Interval History: Patient was seen and examined at bedside. Reports that he is feeling somewhat better. Diaphoretic this morning however he denies any fever or chills. Breathing has improved and chest pain has resolved. He denies any palpitations, nausea, vomiting or diarrhea. Denies pain and is tolerating by mouth diet. - Exam Vitals: Temp Pulse Resp BP Pulse Ox 98.7 F 95 16 120/76 96 10/30/18 07:43 10/30/18 07:43 10/30/18 07:43 10/30/18 07:43 10/30/18 07:43 Exam: General: Patient is alert, oriented, no acute distress, obese, unkept. Diaph oretic Head: atraumatic, normocephalic, Eye: normal appearance, PERRL, no scleral icterus, no conjunctival injection ENT: mucous membranes moist, normal external ear exam Neck: normal inspection, trachea midline, full ROM,could not appreciate lymphadenopathy Chest: normal inspection, symmetric chest rise Respiratory:decreased breath sounds secondary to body habitus, occasional crackles in the posterior lung field Cardiovascular: tachycardic. s1 and s2 No clicks, rubs, gallops, or murmors. Abdomen: Bowel sounds present normoactive x-4 quadrants. Abdomen is soft, nondistended. no Epigastric tenderness. No guarding or rebound. No organomegaly noted, obese musculoskeletal: Spontaneously moving all extremities. no edema, no calf tenderness Skin: warm, dry, intact. Neuro: Alert and oriented x3, no focal deficit Psych: Patient's affect is normal - Assessment and Plan (1) Bilateral pulmonary embolism Current Visit: Yes Status: Acute Assessment and Plan: CTA with bilateral segmental and segmental PE and Peripheral bibasilar airspace disease, greater on the left since the prior study, likely infarcts. Continue heparin drip no right heart strain on TTE- full report below DVT study- No DVT in the bilateral lower extremities. Transition to oral anticoagulants after completion of invasive work-up and/or biopsy- xarelto hopkins checked- $2 copay pulm consulted oncology on board TTE-Impressions: LVEF 60-65%. Normal LV chamber size, wall thickness and function. Normal right ventricular structure and function. No significant valvular dysfunction. No evidence of pulmonary hypertension. (2) Pneumonia Current Visit: Yes Status: Acute Assessment and Plan: was recently admitted and treated discharged on 10/24 on augmentin (without relief) MRSA nasal swab continue with levaquin urine antigens were negative last week pulmonology consulted will follow recs procalcitoin 0.21 bcx in process respiratory viral panel negative except for [place] IgG which was positive (3) Lymphadenopathy Current Visit: Yes Status: Acute Assessment and Plan: oncology on board had mediastenal lymphadenopathy and splenomegaly consulted pulm for possible bronch and biopsy oncology on board recommended OP follow with Dr. Shaan Franco to do a lymph node biopsy in 4 weeks from now (4) Anemia Current Visit: Yes Status: Chronic Assessment and Plan: Per history and recent lab review, patient has microcytic anemia with iron deficiency. GI on board for EGD continue to monitor H/h closely hematology on board continue ferrous sulfate (5) DVT prophylaxis Current Visit: Yes Status: Acute Assessment and Plan: on heparin drip - Time Spent with Patient Total time spent is greater than 50% in coordination of care (as documented) at patient's floor/unit and/or counseling patient: Internal Medicine: Result - Labs CBC & Chem 7: 10/30/18 02:04 10/30/18 02:04 Labs: Short CBC 10/30/18 Range/Units 02:04 WBC 4.9 (4.3-11.1) K/mcL Hgb 9.3 L (12.9-16.9) g/dL Hct 31.8 L (37.5-50.1) % Plt Count 263 (140-400) K/mcL [facility] 10/30/18 02:04 Sodium 137 Potassium 4.0 Chloride 108 H Carbon Dioxide 22 L BUN 8 Creatinine 0.76 Glucose 92 Calcium 8.1 L - ABG Interpretation ABG results: PT/INR, D-dimer PT 22.8 Seconds (9.4-12.1) H 10/29/18 03:01 - Impressions Impressions Echocardiogram 10/29/18 21:59 Impressions: LVEF 60-65%. Normal LV chamber size, wall thickness and function. Normal right ventricular structure and function. No significant valvular dysfunction. No evidence of pulmonary hypertension. Left Ventricular Wall Motion: Rest Echo Findings All wall segments showed normal motion. Findings: Study Quality * Technically adequate exam. ECG Findings * Sinus rhythm with PACs. Left Ventricle * LVEF 60-65%. * Normal LV chamber size, wall thickness and systolic function. * Normal left ventricular diastolic function. Right Ventricle * Normal right ventricular structure and function. Left Atrium * Normal left atrial size. Right Atrium * Normal right atrial size. Interatrial Septum * Interatrial septum not well evaluated. * No evidence of PFO by color Doppler. Aortic Valve * Trileaflet aortic valve with normal function. * No aortic stenosis. * No aortic regurgitation. Mitral Valve * Normal mitral valve structure. * No mitral stenosis. * Trace mitral regurgitation. Tricuspid Valve * Normal tricuspid valve structure. * No tricuspid stenosis. * Trace tricuspid regurgitation. * Unable to estimate RVSP due to lack of TR jet. * No evidence of pulmonary hypertension. * Estimated RA pressure is 3 mmHg. Pulmonic Valve * Pulmonic valve is not well visualized. * No pulmonic stenosis. * No pulmonic regurgitation. Aorta * Normally sized aortic root. Pericardium * The pericardium appears normal. IVC * The IVC is not dilated. * > 50% respiratory change Consult Discharge Plan - Plan Referrals: Daniel Monahan MD [Primary Care Provider] - Prescriptions: Rivaroxaban [Xarelto] 1 dose PO AD 30 Days #1 pack (2) Pneumonia Qualifiers: Pneumonia type: due to unspecified organism Laterality: bilateral Lung l ocation: lower lobe of lung Qualified Code(s): J18.1 - Lobar pneumonia, unspecified organism (4) Anemia Qualifiers: Anemia type: iron deficiency Iron deficiency anemia type: unspecified iron deficiency Qualified Code(s): D50.9 - Iron deficiency anemia, unspecified
[2018-10-30] MEDS: levoFLOXacin 750 MG TABLET PO SCH (10:03)
[2018-10-30] MEDS: Heparin 25,000 UNIT/250 ML D5W 25,000 UNIT/250 ML IV.SOLN IVC SCH (10:04)
[2018-10-30] MEDS: Pantoprazole 40 MG VIAL IVP SCH (10:05)
[2018-10-31] MEDS: Heparin 25,000 UNIT/250 ML D5W 25,000 UNIT/250 ML IV.SOLN IVC SCH ×2 (02:33→11:13)
[2018-10-31 03:38] LABS: Hematocrit 32.8 % (37.5-50.1); Hemoglobin 9.6 g/dL (12.9-16.9); Mean Corpuscular HGB Conc 29.3 g/dL (31.6-35.5); Mean Corpuscular Hemoglobin 22.6 pg (28.0-33.3); Mean Corpuscular Volume 77.2 fL (83.0-100.0); Mean Platelet Volume 8.9 fL (9.4-12.4); Platelet Count 297 K/mcL (140-400); Red Blood Count 4.25 M/mcL (4.19-5.50); Red Cell Distribution Width 21.6 % (11.5-14.5); White Blood Count 4.6 K/mcL (4.3-11.1)
[2018-10-31 03:44] LABS: INR 1.8; Prothrombin Time 20.6 Seconds (9.4-12.1)
[2018-10-31 03:59] LABS: BUN/Creatinine Ratio 10 (6-26); Blood Urea Nitrogen 9 mg/dL (6-20); Calcium 8.5 mg/dL (8.6-10.3); Carbon Dioxide 22 mEq/L (23-29); Chloride 103 mEq/L (98-107); Glucose 91 mg/dL (70-105); Osmolality,Calculated 280 (280-300); Potassium 3.8 mEq/L (3.5-5.1); Sodium 136 mEq/L (136-145); eGFR For African Americans > 60 (> 60); eGFR For Non-African Americans > 60 (> 60)
[2018-10-31 04:10] LABS: Carcinoembryonic Antigen 0.4 ng/mL (Less than 5.0)
[2018-10-31] MEDS ORDERED: *HR* Propofol 200 MG/20 ML VIAL IVP ONE ×2 (07:54→08:46)
[2018-10-31] MEDS ORDERED: Lidocaine -MPF 2% 2 ML VIAL ONE (07:54)
--- NOTE | 2018-10-31 08:05 | Anesthesia Evaluation PreOp ---
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 Franco 3 weeks from now. Suspected Malignancy) Anesthesia History: No Prior Anesthetic Complications, Past Anesthesia (No prior surgical Hx) Alcohol Use: none Drug use: none Medications and Allergies Acetaminophen [Tylenol] 650 mg PO DAILY PRN 10/21/18 [History] Ferrous Sulfate 325 mg PO BIDWM #60 tablet 10/24/18 [Rx] Rivaroxaban [Xarelto] 1 dose PO AD 30 Days #1 pack 10/29/18 [Rx] Allergy/AdvReac Type Severity Reaction Status Date / Time No Known Allergies Allergy Verified 10/21/18 22:18 - Meds/Allergy Pre-op Review Medications Reviewed: Yes Allergies Reviewed: Yes Beta Blockers on Current Med List: No Anesthesia Results - Labs 10/31/18 02:55 10/31/18 02:55 Impressions Chest X-Ray 10/28/18 14:10 IMPRESSION: Negative chest. D/ / Luciano Mendoza MD / Luciano Mendoza MD Interpreting Provider: Luciano Mendoza MD Chest CTA 10/28/18 18:44 IMPRESSION: Bilateral lower lobe lung segmental and subsegmental pulmonary emboli. Peripheral bibasilar airspace disease, greater on the left since the prior study, likely infarcts. Wall thickening of the esophagus suspicious for acute inflammation. Endoscopy could be performed as clinically warranted. Fluid is present within the mid esophagus. Mediastinal and hilar adenopathy. Follow-up is recommended. Findings were discussed with Phil Bashir at 7:45 pm on 10/28/2018. D/ / Lashaun Rees Cha, MD / Lashaun Rees Cha, MD Interpreting Provider: Lashaun Rees Cha, MD Echocardiogram 10/29/18 21:59 Impressions: LVEF 60-65%. Normal LV chamber size, wall thickness and function. Normal right ventricular structure and function. No significant valvular dysfunction. No evidence of pulmonary hypertension. Left Ventricular Wall Motion: Rest Echo Findings All wall segments showed normal motion. Findings: Study Quality * Technically adequate exam. ECG Findings * Sinus rhythm with PACs. Left Ventricle * LVEF 60-65%. * Normal LV chamber size, wall thickness and systolic function. * Normal left ventricular diastolic function. Right Ventricle * Normal right ventricular structure and function. Left Atrium * Normal left atrial size. Right Atrium * Normal right atrial size. Interatrial Septum * Interatrial septum not well evaluated. * No evidence of PFO by color Doppler. Aortic Valve * Trileaflet aortic valve with normal function. * No aortic stenosis. * No aortic regurgitation. Mitral Valve * Normal mitral valve structure. * No mitral stenosis. * Trace mitral regurgitation. Tricuspid Valve * Normal tricuspid valve structure. * No tricuspid stenosis. * Trace tricuspid regurgitation. * Unable to estimate RVSP due to lack of TR jet. * No evidence of pulmonary hypertension. * Estimated RA pressure is 3 mmHg. Pulmonic Valve * Pulmonic valve is not well visualized. * No pulmonic stenosis. * No pulmonic regurgitation. Aorta * Normally sized aortic root. Pericardium * The pericardium appears normal. IVC * The IVC is not dilated. * > 50% respiratory change - Imaging EKG: report reviewed (117bpm - Sinus tachycardia Electronically Signed On 10-30-2018 5:27:04 EDT by Mukul Junior) Anesthesia Exam Vital Signs Temp Pulse Resp BP Pulse Ox 10/31/18 07:11 98.9 F 82 16 129/82 95 10/31/18 03:55 98.4 F 86 20 107/67 96 10/30/18 23:20 99.1 F 98 20 124/77 97 10/30/18 19:48 100 F H 107 20 118/78 97 10/30/18 14:32 99.6 F 105 16 124/80 97 10/30/18 11:15 98.3 F 97 16 118/77 97 Intake and Output 10/30/18 10/31/18 10/31/18 23:59 07:59 15:59 Intake Total 240 / 240 Output Total 0 / 0 0 / 0 Balance 0 / 200 240 / 240 Intake: IV Fluids 240 / 240 Heparin 25,000 UNIT/250 ML D5W 240 / 240 25,000 unit In 250 ml @ 14 UNIT /KG/HR 15.571 mls/hr IVC . Q16H4M [facility] Rx#:[id number] Output: Urine 0 / 0 0 / 0 Other: Weight 115 kg - HEENT Pupil (Motor): Pupils equal, EOMI Mallampati: II Teeth: Normal Oral Opening: Greater than 3 - CONTACT CENTRE SUPERVISOR LOC: Oriented CONTACT CENTRE SUPERVISOR Motor: Normal RUE, Normal LUE, Normal RLE, Normal LLE, Normal Face CONTACT CENTRE SUPERVISOR Sensory: Normal: RUE, LUE, RLE, LLE, Face - Cardiac Rhythm: Regular Murmur: None - Pulmonary Breath Sounds: bilateral Clear Respiratory Effort: Symmetrical Anesthesia Assess/Plan ASA Score: 3 Level of consciousness: Cooperative, Oriented, Tranquil Anesthetic Plan: MAC Autologous Blood: No Anes Supervising Prov Stmt: PT seen/evaluated, R&B Discussed, questions answered and consent obtained. Cristal Khan MD
--- NOTE | 2018-10-31 08:15 | Gastroenterology Consult Note ---
Date of Encounter: 10/31/18 Time of Encounter: 07:00 - Time Spent With Patient Total time spent is greater than 50% in coordination of care (as documented) at patient's floor/unit and/or counseling patient: GI History of Present Illness - Data of Consult Requesting Physician: Shaan Brandon MD - Consult Narrative Reason for consult: Abnormal CT scan. Thickened esophagus on CT History of present illness: Mr. Montero is a 27 year old obese male who was apparently in his usual state about a month ago when he noticed increasing fatigue, loss of appetite, night sweats. He was admitted initially on 10/24/2018 and seen by oncology - he was readmitted on 10/28/2018 with nausea, vomiting and shortness of breath. Work up suggests bilateral PE and has been anticoagulated with heparin. Patient absolutely denies dysphagia and odynophagia. Both his parents have no medical problems per patient and he is the oldest of three - the other two are apparently healthy with no problems. He had an extensive serology workup which was positive only for [place] Virus IgG titer. He tells me that prior to a month ago he felt absolutely fine and had no clue anything was wrong. Plan EGD today. Past Med Surg Social Fam HX - Past Medical History Medical history: GERD Psychiatric history: ADHD - Past Surgical History Surgical History: no surgical history - Social History Smoking Status: Never smoker Smokeless Tobacco Status: No Alcohol use: none Drug use: none - Family History Mother Living Status: Still Living Hx Family Cancer: No Father Living Status: Still Living Hx Family Cancer: No All systems PM: reviewed and no additional remarkable complaints except as stated Review of Systems: Night sweats intermittently. - Constitutional Vitals: Temp Pulse Resp BP Pulse Ox 98.9 F 82 16 129/82 95 10/31/18 07:11 10/31/18 07:11 10/31/18 07:11 10/31/18 07:11 10/31/18 07:11 Results - Labs CBC & Chem 7: 11/01/18 03:06 11/01/18 03:06 Labs: Last Result 10/31/18 02:55 Calcium 8.5 L Entire Visit 10/31/18 10/31/18 10/31/18 02:55 02:55 02:55 Hgb 9.6 L Hct 32.8 L PT 20.6 H Carcinoembryonic Ag 0.4 - ABG ABG results: PT/INR, D-dimer PT 20.6 Seconds (9.4-12.1) H 10/31/18 02:55 Consult Discharge Plan - Plan Referrals: Daniel Monahan MD [Primary Care Provider] - Prescriptions: Rivaroxaban [Xarelto] 1 dose PO AD 30 Days #1 pack
[2018-10-31] MEDS ORDERED: *HR* Succinylcholine 200 MG/10 ML VIAL IVP ONE (09:01)
--- NOTE | 2018-10-31 09:30 | Pulmonology Consult Note ---
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 Lymphoma/other lymphoproliferative disorder remains in the differential I did discuss the case with the on-call oncologist Dr. Lozano and I explained that the large 2A right paratracheal lymph node would likely be amenable to bronchoscopy was endobronchial ultrasound/fine-needle aspiration if the procedure was done with LMA she said that she was in agreement to start with bronchoscopy prior to referral to thoracic surgery for possible mediastinoscopy. The family and the patient that this procedure could be performed tomorrow under general anesthesia and heparin would have to be held 4 hours prior to procedure. A bronchoscopy is recommended. The procedure , risks, benefits, complications, and expected outcomes have been reviewed. Benefits of diagnosis, as well as risks to include bleeding, infection, pneumothorax which may require surgical intervention, and in a small population. The patient is aware that sometimes test is nondiagnostic. Discussed with patient and agrees to proceed. Please keep nothing by mouth at midnight Turn heparin infusion off at 4 AM Planned procedure will be at 8 AM (With Dr Mazariegos) Patient also understands that turning off the heparin and does present some risk of progression of pulmonary embolism however patient has had more than 48 hours of consistent therapy which mitigates this risk. (2) Bilateral pulmonary embolism Current Visit: Yes Status: Acute Continue heparin infusion can be transitioned to NOAC prior to D/C per Oncology Recs (3) Sleep-disordered breathing Current Visit: Yes Status: Acute High pretest probability for obstructive sleep apnea he will need outpatient polysomnogram advise patient to follow-up in pulmonary clinic after discharge Possible adverse effects of untreated sleep apnea explained including increased risk of stroke, hypertension, headaches, and pulmonary hypertension. Advised not to drive if sleepy as untreated ISABEL can cause motor vehicle accidents. Thank you for the consult. Do not hesitate to call me with any questions or concerns Nomi Fowler [phone] History of Present Illness Consult date: 10/31/18 Requesting physician: Christelle Drummond Reason for consult: abnormal CXR/CT Chief complaint: Chest Pain and Cough History of present illness: This is a 27-year-old gentleman who I was consulted to evaluate for mediastinal lymphadenopathy. He presented to the emergency department for progressive progressive weakness and fatigue for the last 2 weeks of nausea vomiting and abdominal pain this is on 10/22 was noted to have anemia which is new for the patient and the way CT notable for right paratracheal lymph node 2 x 1.82.6 and left paratracheal lymph node of about a centimeter he is also noted hepatosplenomegaly at 15.4 seen centimeters. He also had elevated liver enzymes and overall concern was for viral process on initial evaluation and he was discharged on the and plan to have 4 weeks of follow-up with oncology. Unfortunately he returned to the emergency department on 10/28 complaining of worsening chest pain and increased cough a CT angiogram performed at that time was notable for bilateral lower lobe segmental and subsegmental pulmonary emboli as well as bilateral airspace disease there is also significant wall thickening of the esophagus. Again noted was mediastinal and hilar adenopathy. The patient was again reevaluated by oncology and the plan at that point was to follow-up as an outpatient with thoracic surgery for lymph node biopsy in approximately 4 weeks with transition from heparin Xarelto at the time of discharge. They also recommended EGD which actually was performed today which was notable for diffuse gastric ulcers. It was the opinion of the primary fountain roller assembler as well as the tax auditor that patient would require sooner biopsy then within a month's time and thus the Pulmonary service was consulted. Patient denies any recent travel or sick contacts no exposure birds but his mother does keep two ferrets where he lives. 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 He does state that he is out and exposed to mosquito bites quite often as well. He is a lifelong nonsmoker At this time he denies any chest pain he has noted some abdominal pain with without vomiting or hematemesis denies any diarrhea he has had a 25 pound weight loss over the last few weeks since his symptoms started. Occasional night sweats but denies drenching sweats. Of note patient does report to me that he has been told he snores loudly he does wake up feeling unrefreshed and is sleepy throughout the day Past Med Surg Social Fam HX - Past Medical History Medical history: GERD Psychiatric history: ADHD - Past Surgical History Surgical History: no surgical history - Social History Smoking Status: Never smoker Smokeless Tobacco Status: No Alcohol use: none Drug use: none - Family History Mother Living Status: Still Living Hx Family Cancer: No Father Living Status: Still Living Hx Family Cancer: No Medications and Allergies Acetaminophen [Tylenol] 650 mg PO DAILY PRN 10/21/18 [History] Ferrous Sulfate 325 mg PO BIDWM #60 tablet 10/24/18 [Rx] Rivaroxaban [Xarelto] 1 dose PO AD 30 Days #1 pack 10/29/18 [Rx] Allergy/AdvReac Type Severity Reaction Status Date / Time No Known Allergies Allergy Verified 10/21/18 22:18 All Systems: The remainder of the systems were reviewed and are negative Physical Examination Vital Signs: Vital Signs, Last 4 Hours Temp Pulse Resp BP Pulse Ox 10/31/18 08:24 70 18 121/70 98 10/31/18 07:11 98.9 F 82 16 129/82 95 General appearance: no acute distress Eyes: nonicteric ENT: oropharynx moist Mallampati (class): 4 Neck: supple Effort: normal Auscultation: bilateral: clear Cardiovascular: regular rate and rhythm Gastrointestinal: normoactive bowel sounds, soft, non-tender Integumentary: normal Extremities: no cyanosis, no edema, no clubbing Musculoskeletal: no deformities normal mental status, non-focal exam mood appropriate Results - Laboratory Findings CBC and BMP: 10/31/18 02:55 10/31/18 02:55 ABG WBC 4.6 K/mcL (4.3-11.1) 10/31/18 02:55 RBC 4.25 M/mcL (4.19-5.50) 10/31/18 02:55 Hgb 9.6 g/dL (12.9-16.9) L 10/31/18 02:55 Hct 32.8 % (37.5-50.1) L 10/31/18 02:55 MCV 77.2 fL (83.0-100.0) L 10/31/18 02:55 MCH 22.6 pg (28.0-33.3) L 10/31/18 02:55 MCHC 29.3 g/dL (31.6-35.5) L 10/31/18 02:55 RDW 21.6 % (11.5-14.5) H 10/31/18 02:55 Plt Count 297 K/mcL (140-400) 10/31/18 02:55 MPV 8.9 fL (9.4-12.4) L 10/31/18 02:55 Immature Gran % 1.5 % (0-4) 10/29/18 03:01 Seg Neutrophils % 47.6 % 10/29/18 03:01 2.0 % (0-4) 10/28/18 14:10 39.6 % 10/29/18 03:01 9.8 % 10/29/18 03:01 1.0 % 10/29/18 03:01 0.5 % 10/29/18 03:01 3.9 K/mcL (1.6-8.9) 10/29/18 03:01 3.2 K/mcL (0.6-4.6) 10/29/18 03:01 0.8 K/mcL (0.0-1.3) 10/29/18 03:01 0.1 K/mcL (0.0-0.6) 10/29/18 03:01 0.0 K/mcL (0.0-0.2) 10/29/18 03:01 Present (Not Present) A 10/29/18 03:01 Normal (Normal) 10/29/18 03:01 1+ (Not Present) A 10/28/18 14:10 1+ (Not Present) A 10/29/18 03:01 1+ (Not Present) A 10/29/18 03:01 PT 20.6 Seconds (9.4-12.1) H 10/31/18 02:55 INR 1.8 10/31/18 02:55 Heparin Anti-Xa, Unfract 0.38 IU/mL (0.30-0.70) 10/30/18 08:05 Sodium 136 mEq/L (136-145) 10/31/18 02:55 Potassium 3.8 mEq/L (3.5-5.1) 10/31/18 02:55 Chloride 103 mEq/L (98-107) 10/31/18 02:55 Carbon Dioxide 22 mEq/L (23-29) L 10/31/18 02:55 BUN 9 mg/dL (6-20) 10/31/18 02:55 0.87 mg/dL (0.70-1.30) 10/31/18 02:55 Est GFR ( Amer) > 60 (> 60) 10/31/18 02:55 Est GFR (Non-Af Amer) > 60 (> 60) 10/31/18 02:55 10 (6-26) 10/31/18 02:55 Glucose 91 mg/dL (70-105) 10/31/18 02:55 280 (280-300) 10/31/18 02:55 Lactic Acid 1.0 mmol/L (0.5-2.2) 10/28/18 14:39 Calcium 8.5 mg/dL (8.6-10.3) L 10/31/18 02:55 Magnesium 1.9 mg/dL (1.6-2.6) 10/29/18 03:01 0.6 mg/dL (0.3-1.0) 10/29/18 03:01 0.3 mg/dL (0.0-0.2) H 10/28/18 14:10 0.3 mg/dL (0.0-1.2) 10/28/18 14:10 AST 22 Units/L (13-39) 10/29/18 03:01 ALT 33 Units/L (7-52) 10/29/18 03:01 78 Units/L (34-104) 10/29/18 03:01 6.3 g/dL (6.4-8.9) L 10/29/18 03:01 3.1 g/dL (3.5-5.7) L 10/29/18 03:01 3.2 g/dL (2.4-3.5) 10/29/18 03:01 1.0 (1.1-2.2) L 10/29/18 03:01 41 Units/L (11-82) 10/28/18 14:10 Carcinoembryonic Ag 0.4 ng/mL (Less than 5.0) 10/31/18 02:55 0.21 ng/mL (0.00-0.15) H 10/29/18 10:55 Dark Yellow (Yellow) 10/28/18 13:08 Clear (Clear) 10/28/18 13:08 5.5 pH Units (5.0-8.0) 10/28/18 13:08 Ur Specific [place] 1.027 (1.010-1.025) H 10/28/18 13:08 30 mg/dL (Neg-Trace) H 10/28/18 13:08 Normal mg/dL (Normal) 10/28/18 13:08 15 mg/dL (Negative) H 10/28/18 13:08 Negative (Negative) 10/28/18 13:08 Negative (Negative) 10/28/18 13:08 Small (Negative) H 10/28/18 13:08 Normal mg/dL (Normal) 10/28/18 13:08 Ur Leukocyte Esterase Negative (Negative) 10/28/18 13:08 0-3 per hpf (0-3) 10/28/18 13:08 0-3 per hpf (0-3) 10/28/18 13:08 Ur Squamous Epith Cells Moderate per lpf (None-Few) H 10/28/18 13:08 None Seen per hpf (None-Few) 10/28/18 13:08 Hyaline Casts None Seen per lpf (None-Few) 10/28/18 13:08 Positive (Negative) A 10/30/18 11:00 HIV Ag/Ab Combo Qual Nonreactive (Nonreactive) 10/29/18 10:55 PT/INR, D-dimer PT 20.6 Seconds (9.4-12.1) H 10/31/18 02:55 Abnormal lab findings: Abnormal lab results Hgb 9.6 g/dL (12.9-16.9) L 10/31/18 02:55 Hct 32.8 % (37.5-50.1) L 10/31/18 02:55 MCV 77.2 fL (83.0-100.0) L 10/31/18 02:55 MCH 22.6 pg (28.0-33.3) L 10/31/18 02:55 MCHC 29.3 g/dL (31.6-35.5) L 10/31/18 02:55 RDW 21.6 % (11.5-14.5) H 10/31/18 02:55 MPV 8.9 fL (9.4-12.4) L 10/31/18 02:55 6.1 K/mcL (0.6-4.6) H 10/28/18 14:10 Present (Not Present) A 10/29/18 03:01 1+ (Not Present) A 10/28/18 14:10 1+ (Not Present) A 10/29/18 03:01 1+ (Not Present) A 10/29/18 03:01 PT 20.6 Seconds (9.4-12.1) H 10/31/18 02:55 Heparin Anti-Xa, Unfract 0.19 IU/mL (0.30-0.70) L 10/29/18 20:04 Sodium 135 mEq/L (136-145) L 10/29/18 03:01 Chloride 108 mEq/L (98-107) H 10/30/18 02:04 Carbon Dioxide 22 mEq/L (23-29) L 10/31/18 02:55 Glucose 153 mg/dL (70-105) H 10/29/18 03:01 Calcium 8.5 mg/dL (8.6-10.3) L 10/31/18 02:55 0.3 mg/dL (0.0-0.2) H 10/28/18 14:10 6.3 g/dL (6.4-8.9) L 10/29/18 03:01 3.1 g/dL (3.5-5.7) L 10/29/18 03:01 1.0 (1.1-2.2) L 10/29/18 03:01 0.21 ng/mL (0.00-0.15) H 10/29/18 10:55 Ur Specific [place] 1.027 (1.010-1.025) H 10/28/18 13:08 30 mg/dL (Neg-Trace) H 10/28/18 13:08 15 mg/dL (Negative) H 10/28/18 13:08 Small (Negative) H 10/28/18 13:08 Ur Squamous Epith Cells Moderate per lpf (None-Few) H 10/28/18 13:08 Positive (Negative) A 10/30/18 11:00 - Diagnostic Findings CT scan - chest: report reviewed, image reviewed - Clinical Findings Intake & Output: Intake & Output 10/30/18 10/31/18 10/31/18 23:59 07:59 15:59 Intake Total 240 / 240 Output Total 0 / 0 0 / 0 Balance 0 / 200 240 / 240 Weight 115 kg Consult Discharge Plan - Plan Referrals: Daniel Monahan MD [Primary Care Provider] - Prescriptions: Rivaroxaban [Xarelto] 1 dose PO AD 30 Days #1 pack
[2018-10-31] MEDS: Pantoprazole 40 MG VIAL IVP SCH (09:34)
[2018-10-31] MEDS: levoFLOXacin 750 MG TABLET PO SCH (09:34)
--- NOTE | 2018-10-31 09:56 | Internal Med Progress Note ---
Hospitalist Progress Note - Encounter Date of Encounter: 10/31/18 Time of Encounter: 09:30 - Subjective Interval History: roger was seen adn examiend at [facility] s/p biopsy. is feeling somewhat better. reports chest pain has resolved. SOB has improved. - Exam Vitals: Temp Pulse Resp BP Pulse Ox 98.9 F 70 18 121/70 98 10/31/18 07:11 10/31/18 08:24 10/31/18 08:24 10/31/18 08:24 10/31/18 08:24 Exam: General: Patient is alert, oriented, no acute distress, obese, unkept. Diaphoretic Head: atraumatic, normocephalic, Eye: normal appearance, PERRL, no scleral icterus, no conjunctival injection ENT: mucous membranes moist, normal external ear exam Neck: normal inspection, trachea midline, full ROM,could not appreciate lymphadenopathy Chest: normal inspection, symmetric chest rise Respiratory:decreased breath sounds secondary to body habitus, occasional crackles in the posterior lung field Cardiovascular: tachycardic. s1 and s2 No clicks, rubs, gallops, or murmors. Abdomen: Bowel sounds present normoactive x-4 quadrants. Abdomen is soft, nond istended. no Epigastric tenderness. No guarding or rebound. No organomegaly noted, obese musculoskeletal: Spontaneously moving all extremities. no edema, no calf tenderness Skin: warm, dry, intact. Neuro: Alert and oriented x3, no focal deficit Psych: Patient's affect is normal - Assessment and Plan (1) Bilateral pulmonary embolism Current Visit: Yes Status: Acute Assessment and Plan: CTA with bilateral segmental and segmental PE and Peripheral bibasilar airspace disease, greater on the left since the prior study, likely infarcts. Continue heparin drip no right heart strain on TTE- full report below DVT study- No DVT in the bilateral lower extremities. Transition to oral anticoagulants after completion of invasive work-up and/or biopsy- xareldanish hopkins checked- $2 copay pulm consulted oncology on board TTE-Impressions: LVEF 60-65%. Normal LV chamber size, wall thickness and function. Normal right ventricular structure and function. No significant valvular dysfunction. No evidence of pulmonary hypertension. (2) Pneumonia Current Visit: Yes Status: Acute Assessment and Plan: was recently admitted and treated discharged on 10/24 on augmentin (without relief) MRSA nasal swab - positive has been treated with 10 days of ABx since 10/22. levaquin discontinued ( afebrile has no leukocytosis) urine antigens were negative last week pulmonology consulted will follow recs procalcitoin 0.21 bcx NGTD respiratory viral panel negative except for westnile IgG which was positive ID consulted MRSA swab positive (3) Lymphadenopathy Current Visit: Yes Status: Acute Assessment and Plan: oncology on board had mediastenal lymphadenopathy and splenomegaly consulted pulm for possible bronch and biopsy oncology on board recommended OP follow with Dr. Shaan Franco to do a lymph node biopsy in 4 weeks from now (4) Anemia Current Visit: Yes Status: Chronic Assessment and Plan: Per history and recent lab review, patient has microcytic anemia with iron deficiency. 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 - will follow biopsy continue IV PPI for now will transition to oral as diet advances continue to monitor H/h closely hematology on board continue ferrous sulfate (5) DVT prophylaxis Current Visit: Yes Status: Acute Assessment and Plan: on heparin drip - Time Spent with Patient Total time spent is greater than 50% in coordination of care (as documented) at patient's floor/unit and/or counseling patient: 25 - 35 minutes Plan of Care Discussed with: patient Internal Medicine: Result - Labs CBC & Chem 7: 10/31/18 02:55 10/31/18 02:55 Labs: Short CBC 10/31/18 Range/Units 02:55 WBC 4.6 (4.3-11.1) K/mcL Hgb 9.6 L (12.9-16.9) g/dL Hct 32.8 L (37.5-50.1) % Plt Count 297 (140-400) K/mcL [facility] 10/31/18 02:55 Sodium 136 Potassium 3.8 Chloride 103 Carbon Dioxide 22 L BUN 9 Creatinine 0.87 Glucose 91 Calcium 8.5 L - ABG Interpretation ABG results: PT/INR, D-dimer PT 20.6 Seconds (9.4-12.1) H 10/31/18 02:55 Consult Discharge Plan - Plan Referrals: Daniel Monahan MD [Primary Care Provider] - Prescriptions: Rivaroxaban [Xarelto] 1 dose PO AD 30 Days #1 pack (2) Pneumonia Qualifiers: Pneumonia type: due to unspecified organism Laterality: bilateral Lung location: lower lobe of lung Qualified Code(s): J18.1 - Lobar pneumonia, unspecified organism (4) Anemia Qualifiers: Anemia type: iron deficiency Iron deficiency anemia type: unspecified iron deficiency Qualified Code(s): D50.9 - Iron deficiency anemia, unspecified
--- NOTE | 2018-10-31 15:22 | Oncology Inp Progress Note ---
Date of Encounter: 10/31/18 Time of Encounter: 12:00 (1) Bilateral pulmonary embolism Current Visit: Yes Status: Acute Assessment and plan: ON anticoagulation with heparin. Feels improved denies pain/bleeding Mediastinal adenopathy, for in-patient bronch biopsy in AM Discussed with Pulmonary for in-patient work up. . If no diagnostic or inadequate proceed with mediastinoscopy LN bx. Patient, family at bedside stated understanding of the above plan. Oncology: Subj Interval history: Patient feels some improvement than 2 days ago. He denies nausea, denies pain - Head Head exam: Present: atraumatic, normal inspection - Eye Eye exam: Present: sclera anicteric - Neck Neck exam: Present: full ROM - Respiratory Respiratory exam: Present: CTAB - Extremities Exam Extremities exam: Present: normal inspection - Neurological Exam Neurological exam: Present: alert, CN II-XII intact, oriented X3, no focal deficits - Skin Skin exam: Present: dry, normal color Oncology: Obj Data - Labs CBC & Chem 7: 10/31/18 02:55 10/31/18 02:55 Consult Discharge Plan - Plan Referrals: Daniel Monahan MD [Primary Care Provider] - Prescriptions: Rivaroxaban [Xarelto] 1 dose PO AD 30 Days #1 pack Inpatient Charges Provider: Dr. Sheri Roger Follow up - Inpatient: [id number]
[2018-11-01 03:55] LABS: Hematocrit 35.3 % (37.5-50.1); Hemoglobin 10.5 g/dL (12.9-16.9); Mean Corpuscular HGB Conc 29.7 g/dL (31.6-35.5); Mean Corpuscular Hemoglobin 22.5 pg (28.0-33.3); Mean Corpuscular Volume 75.6 fL (83.0-100.0); Platelet Count 315 K/mcL (140-400); Red Blood Count 4.67 M/mcL (4.19-5.50); White Blood Count 5.4 K/mcL (4.3-11.1)
[2018-11-01 04:14] LABS: BUN/Creatinine Ratio 11 (6-26); Blood Urea Nitrogen 9 mg/dL (6-20); Calcium 8.6 mg/dL (8.6-10.3); Carbon Dioxide 21 mEq/L (23-29); Chloride 105 mEq/L (98-107); Glucose 84 mg/dL (70-105); Osmolality,Calculated 280 (280-300); Potassium 3.7 mEq/L (3.5-5.1); Sodium 136 mEq/L (136-145); eGFR For African Americans > 60 (> 60); eGFR For Non-African Americans > 60 (> 60)
[2018-11-01] MEDS ORDERED: *HR* FentaNYL (PF) 100 MCG/2 ML VIAL ONE (06:59)
[2018-11-01] MEDS ORDERED: *HR* Propofol 200 MG/20 ML VIAL IVP ONE (06:59)
[2018-11-01] MEDS ORDERED: Lidocaine -MPF 2% 2 ML VIAL ONE (07:00)
[2018-11-01] MEDS ORDERED: *HR* Succinylcholine 200 MG/10 ML VIAL IVP ONE (07:00)
[2018-11-01] MEDS ORDERED: Dexamethasone 4 MG/ML VIAL ONE (07:01)
[2018-11-01] MEDS ORDERED: Lidocaine -MPF 4% 5 ML AMPUL ONE (07:02)
[2018-11-01] MEDS ORDERED: Ondansetron 4 MG/2 ML VIAL ONE (07:16)
[2018-11-01] MEDS: Pantoprazole 40 MG VIAL IVP SCH (09:38)
[2018-11-01] MEDS: Heparin 25,000 UNIT/250 ML D5W 25,000 UNIT/250 ML IV.SOLN IVC SCH ×3 (09:38→23:01)
--- NOTE | 2018-11-01 10:59 | Internal Med Progress Note ---
Hospitalist Progress Note - Encounter Date of Encounter: 11/01/18 Time of Encounter: 10:57 - Subjective Interval History: Patient was seen and examined at bedside. Status post bronchoscopy. Has no complaints. Discussed plan of care with him and daughter at bedside and they understand. Currently denies fever, chills, nausea, vomiting or diarrhea. Za st pain has resolved, shortness of breath has improved. - Exam Vitals: Temp Pulse Resp BP Pulse Ox 98.9 F 93 20 113/73 97 11/01/18 09:55 11/01/18 09:55 11/01/18 09:55 11/01/18 09:55 11/01/18 09:55 Exam: General: Patient is alert, oriented, no acute distress, obese, unkept. Head: atraumatic, normocephalic, Eye: normal appearance, PERRL, no scleral icterus, no conjunctival injection ENT: mucous membranes moist, normal external ear exam Neck: normal inspection, trachea midline, full ROM,could not appreciate lymphadenopathy Chest: normal inspection, symmetric chest rise Respiratory:decreased breath sounds secondary to body habitus, occasional crackles in the posterior lung field Cardiovascular: tachycardic. s1 and s2 No clicks, rubs, gallops, or murmors. Abdomen: Bowel sounds present normoactive x-4 quadrants. Abdomen is soft, nondistended. no Epigastric tenderness. No guarding or rebound. No organomegaly noted, obese musculoskeletal: Spontaneously moving all extremities. no edema, no calf tenderness Skin: warm, dry, intact. Neuro: Alert and oriented x3, no focal deficit Psych: Patient's affect is normal - Assessment and Plan (1) Bilateral pulmonary embolism Current Visit: Yes Status: Acute Assessment and Plan: CTA with bilateral segmental and segmental PE and Peripheral bibasilar airspace disease, greater on the left since the prior study, likely infarcts. Continue heparin drip today and will switch him to Xarelto from the morning for discharge preparation xarelto hopkins checked- $2 copay no right heart strain on TTE- full report below DVT study- No DVT in the bilateral lower extremities. pulm and oncology on board TTE-Impressions: LVEF 60-65%. Normal LV chamber size, wall thickness and function. Normal right ventricular structure and function. No significant valvular dysfunction. No evidence of pulmonary hypertension. (2) Pneumonia Current Visit: Yes Status: Acute Assessment and Plan: was recently admitted and treated discharged on 10/24 on augmentin (without relief) MRSA nasal swab - positive has been treated with 10 days of ABx since 10/22. levaquin discontinued ( afebrile has no leukocytosis) urine antigens were negative last week pulmonology on board procalcitoin 0.21 bcx NGTD respiratory viral panel negative except for [place] IgG which was positive ID consulted (3) Lymphadenopathy Current Visit: Yes Status: Acute Assessment and Plan: oncology on board had mediastenal lymphadenopathy and splenomegaly Plan was consulted and he status post bronchoscopy and biopsy on 11/01 Follow pathology report oncology on board recommended OP follow with Dr. Shaan Franco to do a lymph node biopsy in 4 weeks from now (4) Anemia Current Visit: Yes Status: Chronic Assessment and Plan: Per history and recent lab review, patient has microcytic anemia with iron deficiency. 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 - will follow biopsy Transitioned to oral PPI continue to monitor H/h closely hematology on board continue ferrous sulfate (5) DVT prophylaxis Current Visit: Yes Status: Acute Assessment and Plan: on heparin drip - Time Spent with Patient Total time spent is greater than 50% in coordination of care (as documented) at patient's floor/unit and/or counseling patient: 25 - 35 minutes Plan of Care Discussed with: patient Internal Medicine: Result - Labs CBC & Chem 7: 11/01/18 03:06 11/01/18 03:06 Labs: Short CBC 11/01/18 Range/Units 03:06 WBC 5.4 (4.3-11.1) K/mcL Hgb 10.5 L (12.9-16.9) g/dL Hct 35.3 L (37.5-50.1) % Plt Count 315 (140-400) K/mcL BMP 11/01/18 03:06 Sodium 136 Potassium 3.7 Chloride 105 Carbon Dioxide 21 L BUN 9 Creatinine 0.84 Glucose 84 Calcium 8.6 - ABG Interpretation ABG results: PT/INR, D-dimer PT 20.6 Seconds (9.4-12.1) H 10/31/18 02:55 Consult Discharge Plan - Plan Referrals: Daniel Monahan MD [Primary Care Provider] - Prescriptions: Rivaroxaban [Xarelto] 1 dose PO AD 30 Days #1 pack (2) Pneumonia Qualifiers: Qualified Code(s): J18.1 - Lobar pneumonia, unspecified organism (4) Anemia Qualifiers: Qualified Code(s): D50.9 - Iron deficiency anemia, unspecified
--- NOTE | 2018-11-01 11:44 | Infectious Disease Consult ---
Infectious Disease-Consult - Encounter Date/Time Date of Encounter: 11/01/18 Time of Encounter: 11:43 - Data of Consult Patient: new to practice Reason for consult: "vital syndrome? has lymphadenopathy and severe ulcerative esophagitis" Consult date: 11/01/18 Requesting Physician: Christelle Drummond MD Primary Care Provider: Daniel Monahan MD - HPI HPI: Mr. Montero is a 27 year old male with a past medical history of ADHD and GERD. The patient was admitted to the hospital 10/28/18 tachycardia, splenomegaly, n ausea, vomiting, pulmonary embolus, and pneumonia. We are consulted 11/01/18 for further workup and treatment recommendations for possible viral syndrome. Briefly, the patient is a 27-year-old male with a past medical history as stated above. The patient presented to the emergency department with complaints of nausea, vomiting, fatigue, and weakness. Upon arrival, healed low-grade temp 99.7. He was tachycardic, but was otherwise hemodynamically stable. He had a normal white blood cell count with 2% bands and 64% lymphocytes. Lactic acid and renal function were normal. LFTs and lipase were normal. Chest x-ray was negative. He had a CTA of the chest that showed bilateral lower lobe lung segmental and subsegmental pulmonary emboli with peripheral bibasilar airspace disease, greater on the left since prior study, likely infarcts. There was wall thickening of the esophagus suspicious for acute inflammation with fluid present within the mid esophagus. There was mediastinal and hilar adenopathy. Blood cultures were obtained 2 sets. He was admitted to the hospital for further albino luation and treatment. Since admission, the patient has had a MAXIMUM TEMPERATURE of 100. His WBC has remained normal. Differential has not been done. Bilateral lower extremity DVT study was negative. He had a transthoracic echo that showed an EF of 60-65%. Oncology was consulted who recommended outpatient lymph node biopsy per cardiothoracic surgery. The patient had a MRSA screen that was positive. HIV was non-reactive. CEA was 0.4. GI was consulted who performed an EGD that showed many cratered esophageal ulcers and a hiatal hernia. Pathology is pending. Pulmonology was consulted and performed a lymph node biopsy/E bus and bronchoscopy today. Cultures and pathology are pending. The patient received 3 days of IV Levaquin (10/29 through 10/31). Currently, he is not on any antibiot ics. We have been asked to evaluate and make further recommendations. During my exam today, the patient states that for about 2 weeks prior to his previous hospitalization he had weakness, fatigue, fever. He was diagnosed with a right lower lobe pneumonia and treated with Rocephin and Zithromax while hospitalized. Hepatitis profile, HIV, mono-spot, and lyme antibody was negative. He did have a positive ABDULLAHI. He was discharged on Augmentin. He states he started to feel better while hospitalized, but began to regress after discharge. He experienced subjective fevers, but denies chills or rigors. Denies headache or neck pain/stiffness. States he got a little lightheaded when he was on the blood thinners when he stood up too quickly. He denies chest pain or shortness of breath. He reports a dry cough. States the nausea and vomiting have improved. States he still gets intermittently nauseous, but has not had any vomiting. Reports one episode of loose stool the day of admission. Denies abdominal pain or urinary complaints. Denies penile discharge. Denies back or flank pain. Denies dysphagia or odynophagia. States she has lost about 30 pounds in the past month. Denies night sweats or hemoptysis. Denies oral thrush or skin lesions. The patient lives at home with his parents. He does not work outside the home. He denies chronic infectious diseases. States he has never been sexually active. States he is only traveled to [place] and that was last year during . He denies tobacco, alcohol, or current/previous illicit drug use. States he [place] traveled out [place]. Denies exposure to chickens/birds/pigeons. - ROS Review of Systems: All systems reviewed and no additional remarkable complaints except as stated. - Results CBC & Chem 7: 11/02/18 01:12 11/02/18 01:12 - Exam Vitals: Temp Pulse Resp BP Pulse Ox 98.0 F 72 18 121/74 96 11/01/18 11:11 11/01/18 11:11 11/01/18 11:11 11/01/18 11:11 11/01/18 11:11 Exam: Head: Atraumatic, normal inspection, normocephalic. Eye: EOMI, PERRLA, no scleral icterus noted. ENT: Mucous membranes moist. No odontogenic infection noted. Neck: Normal inspection, no meningismus. Respiratory: Clear to auscultation. No rales, respiratory distress, rhonchi, or wheezes noted. Cardiovascular: Regular rate and rhythm, S1 and S2 audible. No murmurs, rubs, or gallops. GI: Soft, nondistended, normal bowel sounds. Nontender on palpation. Extremities: No joint swelling, pedal edema, or tenderness noted. Back: Normal inspection. No vertebral tenderness noted. Neurological: Alert, oriented 3, no focal deficits. Psychiatric: normal affect, normal mood. Skin: Dry, intact, warm. Pale. No rashes. Acetaminophen [Tylenol] 650 mg PO DAILY PRN 10/21/18 [History] Ferrous Sulfate 325 mg PO BIDWM #60 tablet 10/24/18 [Rx] Rivaroxaban [Xarelto] 1 dose PO AD 30 Days #1 pack 10/29/18 [Rx] Allergy/AdvReac Type Severity Reaction Status Date / Time No Known Allergies Allergy Verified 10/21/18 22:18 - Assessment and Plan (1) Fever Current Visit: No Status: Resolved MAXIMUM TEMPERATURE 100 (10/30). Etiology: Unclear. Pro-calcitonin 0.21, so bacterial infection level on the differential. Blood cultures drawn 10/28/18 are no growth to date 2 sets. Qualifiers: Fever type: unspecified Qualified Code(s): R50.9 - Fever, unspecified SNOMED Code(s): 227578710 (2) Tachycardia Current Visit: Yes Status: Resolved Noted on admission. Etiology: Likely secondary to dehydration. Improved. SNOMED Code(s): 7381945 (3) Nausea and vomiting Current Visit: Yes Status: Acute Etiology: Unclear. Viral syndrome versus other. Improved. No vomiting since admission. GI consult. Status post EGD that showed many cratered esophageal ulcers and a hiatal hernia. Further workup and management per the GI team. Qualifiers: Vomiting type: unspecified Vomiting Intractability: unspecified Qualified Code(s): R11.2 - Nausea with vomiting, unspecified SNOMED Code(s): 90668298 (4) Bilateral pulmonary embolism Current Visit: Yes Status: Acute Noted on CTA of the chest. Etiology: Unclear. DVT study of the bilateral lower extremities negative. Heme/onc consulted. Anticoagulation per the hematology/oncology and primary teams. SNOMED Code(s): 58952829 (5) Mediastinal lymphadenopathy Current Visit: Yes Status: Acute Etiology: Unclear. Reactive versus malignancy versus other. Status post Bronchoscopy with EBUS 11/01/18. Cultures and pathology are pending. May need to consider cardiothoracic surgery to evaluate. SNOMED Code(s): 36918634 (6) Anemia Current Visit: Yes Status: Chronic Qualifiers: Anemia type: iron deficiency Iron deficiency anemia type: unspecified iron deficiency Qualified Code(s): D50.9 - Iron deficiency anemia, unspecified SNOMED Code(s): 997822301 - Recommendations Recommendations: Etiology of the patient's symptoms remain unclear: malignancy vs. autoimmune vs. other. At this point, the patient's symptoms do not point to an acute infectious process. Check rheumatoid factor, CRP, ESR, and ANCA antibodies. Check fungal serologies (Aspergillus galactomannan, histoplasmosis antigen, cryptococcus antigen, Blastomyces antibody, and fungitell). Await biopsy pathology and cultures. Place PPD. Consider cardiothoracic surgery to evaluate. Continue to observe off antibiotics for now. If the patient takes a turn for the worse, repeat blood cultures 2 sets and start broad-spectrum antibiotics. Contact precautions per the hospital policy. Past Med Surg Social Fam HX - Past Medical History Medical history: GERD Psychiatric history: ADHD - Past Surgical History Surgical History: no surgical history - Social History Smoking Status: Never smoker Smokeless Tobacco Status: No Alcohol use: none Drug use: none - Family History Mother Living Status: Still Living Hx Family Cancer: No Father Living Status: Still Living Hx Family Cancer: No Consult Discharge Plan - Plan Instructions: Rivaroxaban (By mouth) Referrals: Daniel Monahan MD [Primary Care Provider] - Prescriptions: Rivaroxaban [Xarelto] 1 dose PO AD 30 Days #1 pack - Attending Attestation I have personally performed a face to face evaluation on this patient. I have reviewed and agree with the care plan. History and Exam by me shows: This is an addendum to original report dictated by Rola Arnold CNP. Patient is a 27-year-old gentleman who is presenting with very interesting and complicated clinical picture. Patient was found to have nausea and vomiting severe GERD weight loss about 25 pounds and also has lymphadenopathy patient also was found to have a PE and is anemic review of systems, physical exam findings, social history are all unremarkable. Patient has never traveled outside of the [place]. He lives at her. Has not works in the last 3 years. Has not ever been sexually active. Has 2 dogs at home. Also has Ferrets's. Assessment and plan: 1.Feveretiology not clear infectious versus autoimmune versus malignancy versus other 2.Nausea and vomiting 3.Bilateral pulmonary embolism 4.Mediastinal lymphadenopathy 5.Anemia 6.Weight loss Recommendations Etiology of the patient's symptoms remain unclear: malignancy vs. autoimmune vs. other. At this point, the patient's symptoms do not point to an acute infectious process. Check rheumatoid factor, CRP, ESR, and ANCA antibodies. Check fungal serologies (Aspergillus galactomannan, histoplasmosis antigen, cryptococcus antigen, Blastomyces antibody, and fungitell). Await biopsy pathology and cultures. Place PPD. Consider cardiothoracic surgery to evaluate. Continue to observe off antibiotics for now. If the patient takes a turn for the worse, repeat blood cultures 2 sets and start broad-spectrum antibiotics. Contact precautions per the hospital policy.
[2018-11-01] MEDS ORDERED: Tuberculin Skin Test (PPD) 5 TUB/0.1 ML VIAL ID ONE (13:10)
[2018-11-01 14:20] LABS: Appearance of Body Fluid Cloudy (Clear); Source of Body Fluid RIGHT LOWER LOBE LUN; Volume of Body Fluid 20 mL
[2018-11-02 01:28] LABS: Hematocrit 34.9 % (37.5-50.1); Hemoglobin 10.3 g/dL (12.9-16.9); Mean Corpuscular HGB Conc 29.5 g/dL (31.6-35.5); Mean Corpuscular Hemoglobin 22.5 pg (28.0-33.3); Mean Corpuscular Volume 76.2 fL (83.0-100.0); Mean Platelet Volume 8.7 fL (9.4-12.4); Platelet Count 320 K/mcL (140-400); Red Blood Count 4.58 M/mcL (4.19-5.50); Red Cell Distribution Width 21.9 % (11.5-14.5); White Blood Count 5.4 K/mcL (4.3-11.1)
[2018-11-02 01:44] LABS: BUN/Creatinine Ratio 13 (6-26); Blood Urea Nitrogen 10 mg/dL (6-20); Calcium 8.6 mg/dL (8.6-10.3); Carbon Dioxide 23 mEq/L (23-29); Chloride 103 mEq/L (98-107); Glucose 171 mg/dL (70-105); Osmolality,Calculated 277 (280-300); Potassium 3.9 mEq/L (3.5-5.1); Sodium 132 mEq/L (136-145); eGFR For African Americans > 60 (> 60); eGFR For Non-African Americans > 60 (> 60)
[2018-11-02] MEDS: Heparin 25,000 UNIT/250 ML D5W 25,000 UNIT/250 ML IV.SOLN IVC SCH (06:02)
[2018-11-02] MEDS: *HR* Rivaroxaban 15 MG TABLET PO SCH ×2 (08:59→20:32)
--- NOTE | 2018-11-02 09:08 | Pulmonology Progress Note ---
<Kulwinder Sharma - Last Filed: 11/02/18 16:43> Date of Encounter: 11/02/18 Time of Encounter: 10:30 Assessment and Plan (1) Bilateral pulmonary embolism Current Visit: Yes Status: Acute Transition from heparin drip to Xarelto Heme/onc following Shortness of breath improved Non-tachypnic breathing HR no longer elevated SpO2 of 98% on room air (2) Mediastinal lymphadenopathy Current Visit: Yes Status: Acute Difficult to determine infectious vs hematologic disorder vs unknown etiology Underwent bronchoscopy with lymph node biopsy on 11/01/[address] Mazariegos Rapid pathology suggestive of benign-appearing lymphoid tissue Infectious disease is on board Heme/onc is also on board Awaiting final pathology and BAL culture results (3) Sleep-disordered breathing Current Visit: Yes Status: Acute High pretest probability with BMI and neck circumference as well as fatigue Will need outpatient polysomnography and pulmonology follow up on discharge Subjective Principal diagnosis: Bilateral pulmonary embolism Interval history: Pt seen and examined at bedside. No acute events overnight. Pt has no current complaints. States he feels "fine". Denies any shortness of breath, chest pain, fever, or chills. Objective PUL Vital signs: Last Vital Signs Temp 97.9 F 11/02/18 07:48 Pulse 88 11/02/18 07:48 Resp 18 11/02/18 07:48 BP 122/76 11/02/18 07:48 Pulse Ox 98 11/02/18 07:52 General appearance: no acute distress, alert Eyes: nonicteric ENT: oropharynx moist Effort: normal Auscultation: bilateral: clear (upper), diminished breath sounds (lower) Cardiovascular: regular rate and rhythm Gastrointestinal: soft, non-tender, non-distended Integumentary: normal Extremities: no cyanosis, no edema, no clubbing, pink and warm, pulses normal Musculoskeletal: no deformities normal mental status, non-focal exam, pupils equal and round mood appropriate, affect normal Results - Laboratory Findings CBC and BMP: 11/02/18 01:12 11/02/18 01:12 PT/INR, D-dimer PT 20.6 Seconds (9.4-12.1) H 10/31/18 02:55 Abnormal lab findings: Abnormal lab results Hgb 10.3 g/dL (12.9-16.9) L 11/02/18 01:12 Hct 34.9 % (37.5-50.1) L 11/02/18 01:12 MCV 76.2 fL (83.0-100.0) L 11/02/18 01:12 MCH 22.5 pg (28.0-33.3) L 11/02/18 01:12 MCHC 29.5 g/dL (31.6-35.5) L 11/02/18 01:12 RDW 21.9 % (11.5-14.5) H 11/02/18 01:12 MPV 8.7 fL (9.4-12.4) L 11/02/18 01:12 6.1 K/mcL (0.6-4.6) H 10/28/18 14:10 Present (Not Present) A 10/29/18 03:01 1+ (Not Present) A 10/28/18 14:10 1+ (Not Present) A 10/29/18 03:01 1+ (Not Present) A 10/29/18 03:01 ESR 78 mm/hr (0-10) H 11/02/18 01:12 PT 20.6 Seconds (9.4-12.1) H 10/31/18 02:55 Heparin Anti-Xa, Unfract 0.90 IU/mL (0.30-0.70) H 11/02/18 06:43 Sodium 132 mEq/L (136-145) L 11/02/18 01:12 Chloride 108 mEq/L (98-107) H 10/30/18 02:04 Carbon Dioxide 21 mEq/L (23-29) L 11/01/18 03:06 Glucose 171 mg/dL (70-105) H 11/02/18 01:12 277 (280-300) L 11/02/18 01:12 Calcium 8.5 mg/dL (8.6-10.3) L 10/31/18 02:55 0.3 mg/dL (0.0-0.2) H 10/28/18 14:10 36 mg/L (Less than 10) H 11/02/18 01:12 6.3 g/dL (6.4-8.9) L 10/29/18 03:01 3.1 g/dL (3.5-5.7) L 10/29/18 03:01 1.0 (1.1-2.2) L 10/29/18 03:01 0.21 ng/mL (0.00-0.15) H 10/29/18 10:55 Ur Specific [place] 1.027 (1.010-1.025) H 10/28/18 13:08 30 mg/dL (Neg-Trace) H 10/28/18 13:08 15 mg/dL (Negative) H 10/28/18 13:08 Small (Negative) H 10/28/18 13:08 Ur Squamous Epith Cells Moderate per lpf (None-Few) H 10/28/18 13:08 Fluid Appearance Cloudy (Clear) A 11/01/18 09:43 Positive (Negative) A 10/30/18 11:00 - Microbiology Findings Microbiology Findings: Microbiology, Last 48 Hours 11/01/18 09:43 Respiratory Culture - Preliminary Right Lower Lobe Lung 11/01/18 09:43 Fungal Culture - Preliminary Right Lower Lobe Lung Culture is incubating. - Clinical Findings Intake & Output: Intake & Output 11/01/18 11/02/18 11/02/18 23:59 07:59 15:59 Intake Total 180.9 / 364.7 129.1 / 369.1 240 / 369.1 Balance 180.9 / 214.7 129.1 / 369.1 240 / 369.1 Weight 112.4 kg Consult Discharge Plan - Plan Instructions: Rivaroxaban (By mouth) Referrals: Daniel Monahan MD [Primary Care Provider] - Prescriptions: Rivaroxaban [Xarelto] 1 dose PO AD 30 Days #1 pack <Carter Mazariegos M - Last Filed: 11/02/18 17:41> Date of Encounter: 11/02/18 Objective PUL Vital signs: Last Vital Signs Temp 98.0 F 11/02/18 16:10 Pulse 98 11/02/18 16:10 Resp 18 11/02/18 16:10 BP 104/67 11/02/18 16:10 Pulse Ox 96 11/02/18 16:10 Results - Laboratory Findings CBC and BMP: 11/02/18 01:12 11/02/18 01:12 PT/INR, D-dimer PT 20.6 Seconds (9.4-12.1) H 10/31/18 02:55 Abnormal lab findings: Abnormal lab results Hgb 10.3 g/dL (12.9-16.9) L 11/02/18 01:12 Hct 34.9 % (37.5-50.1) L 11/02/18 01:12 MCV 76.2 fL (83.0-100.0) L 11/02/18 01:12 MCH 22.5 pg (28.0-33.3) L 11/02/18 01:12 MCHC 29.5 g/dL (31.6-35.5) L 11/02/18 01:12 RDW 21.9 % (11.5-14.5) H 11/02/18 01:12 MPV 8.7 fL (9.4-12.4) L 11/02/18 01:12 6.1 K/mcL (0.6-4.6) H 10/28/18 14:10 Present (Not Present) A 10/29/18 03:01 1+ (Not Present) A 10/28/18 14:10 1+ (Not Present) A 10/29/18 03:01 1+ (Not Present) A 10/29/18 03:01 ESR 78 mm/hr (0-10) H 11/02/18 01:12 PT 20.6 Seconds (9.4-12.1) H 10/31/18 02:55 Heparin Anti-Xa, Unfract 0.90 IU/mL (0.30-0.70) H 11/02/18 06:43 Sodium 132 mEq/L (136-145) L 11/02/18 01:12 Chloride 108 mEq/L (98-107) H 10/30/18 02:04 Carbon Dioxide 21 mEq/L (23-29) L 11/01/18 03:06 Glucose 171 mg/dL (70-105) H 11/02/18 01:12 277 (280-300) L 11/02/18 01:12 Calcium 8.5 mg/dL (8.6-10.3) L 10/31/18 02:55 0.3 mg/dL (0.0-0.2) H 10/28/18 14:10 36 mg/L (Less than 10) H 11/02/18 01:12 6.3 g/dL (6.4-8.9) L 10/29/18 03:01 3.1 g/dL (3.5-5.7) L 10/29/18 03:01 1.0 (1.1-2.2) L 10/29/18 03:01 0.21 ng/mL (0.00-0.15) H 10/29/18 10:55 Ur Specific [place] 1.027 (1.010-1.025) H 10/28/18 13:08 30 mg/dL (Neg-Trace) H 10/28/18 13:08 15 mg/dL (Negative) H 10/28/18 13:08 Small (Negative) H 10/28/18 13:08 Ur Squamous Epith Cells Moderate per lpf (None-Few) H 10/28/18 13:08 Fluid Appearance Cloudy (Clear) A 11/01/18 09:43 Positive (Negative) A 10/30/18 11:00 - Microbiology Findings Microbiology Findings: Microbiology, Last 48 Hours 10/28/18 14:39 Blood Culture - Final Peripheral Venipuncture No growth. Final report. 10/28/18 14:44 Blood Culture - Final Peripheral Venipuncture No growth. Final report. 11/02/18 01:12 Cryptococcal Antigen - Final Serum 11/01/18 09:43 Respiratory Culture - Preliminary Right Lower Lobe Lung 11/01/18 09:43 Fungal Culture - Preliminary Right Lower Lobe Lung Culture is incubating. - Clinical Findings Intake & Output: Intake & Output 11/02/18 11/02/18 11/02/18 07:59 15:59 23:59 Intake Total 129.1 / 609.1 480 / 609.1 Balance 129.1 / 609.1 480 / 609.1 Weight 112.4 kg - Attending Attestation I examined this patient and my medical decision-making was reviewed with the Resident Physician. I agree with the documented findings, disposition and treatment plan as described except to the extent set forth below. Patient seen and examined. Labs, radiology, chart personally reviewed. 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 Preliminary results of the lymph node biopsy is benign and to follow up on the final. Patient overall is feeling better and infectious disease is following,. Please call for any questions. Cardiovascular: stable
--- NOTE | 2018-11-02 09:43 | Infectious Disease Progress No ---
ID Progress Note Date of Encounter: 11/02/18 Time of Encounter: 09:41 - Subjective Subjective: Patient seen and examined. No acute events noted overnight. Patient states he feels a little bit better today. Denies fevers, chills, or rigors. Denies chest pain or shortness of breath. Reports sparse dry cough. Denies nausea, vomiting, diarrhea, or constipation. States he had a bowel movement a couple days, but this is normal for him. States his appetite is a little bit better. Denies abdominal pain or urinary complaints. Denies oral thrush or skin rashes. Complains of pain to bilateral shoulders, lower back, and bilateral hips to think that he may have slept wrong - Objective CBC & Chem 7: 11/03/18 05:26 11/03/18 05:26 - Exam Vitals: Temp Pulse Resp BP Pulse Ox 97.9 F 88 18 122/76 98 11/02/18 07:48 11/02/18 07:48 11/02/18 07:48 11/02/18 07:48 11/02/18 07:52 Exam: Head: Atraumatic, normal inspection, normocephalic. Eye: EOMI, PERRLA, no scleral icterus noted. ENT: Mucous membranes moist. No odontogenic infection noted. Neck: Normal inspection, no meningismus. Respiratory: Clear to auscultation. No rales, respiratory distress, rhonchi, or wheezes noted. Cardiovascular: Regular rate and rhythm, S1 and S2 audible. No murmurs, rubs, or gallops. GI: Soft, nondistended, normal bowel sounds. Nontender on palpation. Extremities: No joint swelling, pedal edema, or tenderness noted. Neurological: Alert, oriented 3, no focal deficits. Psychiatric: normal affect, normal mood. Skin: Dry, intact, warm. Pale. No rashes. - Assessment and Plan (1) Fever Current Visit: No Status: Resolved MAXIMUM TEMPERATURE 100 (10/30). Etiology: Unclear. Pro-calcitonin 0.21, so bacterial infection lower on the differential. Blood cultures drawn 10/28/18 are no growth to date 2 sets. Resolved. Qualifiers: Fever type: unspecified Qualified Code(s): R50.9 - Fever, unspecified SNOMED Code(s): 561415723 (2) Tachycardia Current Visit: Yes Status: Resolved Noted on admission. Etiology: Likely secondary to dehydration. Resolved. SNOMED Code(s): 1518180 (3) Nausea and vomiting Current Visit: Yes Status: Acute Etiology: Unclear. Viral syndrome versus other. Resolved. No vomiting since admission. GI consult. Status post EGD that showed many cratered esophageal ulcers and a hiatal hernia. Pathology is pending. Further workup and management per the GI team. Qualifiers: Vomiting type: unspecified Vomiting Intractability: unspecified Qualified Code(s): R11.2 - Nausea with vomiting, unspecified SNOMED Code(s): 28972089 (4) Bilateral pulmonary embolism Current Visit: Yes Status: Acute Noted on CTA of the chest. Etiology: Unclear. DVT study of the bilateral lower extremities negative. Heme/onc consulted. Anticoagulation per the hematology/oncology and primary teams. SNOMED Code(s): 01002556 (5) Mediastinal lymphadenopathy Current Visit: Yes Status: Acute Etiology: Unclear. Reactive versus malignancy versus other. Status post Bronchoscopy with EBUS 11/01/18. BAL cultures and cytology pending. Lymph node biopsy pathology pending. Unable to perform cultures on specimens here since specimen already in formalin, but there is a frozen section that was sent out for HSV and they are going to see if we can do cultures on it or not. May need to consider cardiothoracic surgery to evaluate. Fungal serologies pending. Previous ABDULLAHI positive. ANCA antibodies pending. SNOMED Code(s): 19965099 (6) Anemia Current Visit: Yes Status: Chronic Qualifiers: Anemia type: iron deficiency Iron deficiency anemia type: unspecified iron deficiency Qualified Code(s): D50.9 - Iron deficiency anemia, unspecified SNOMED Code(s): 389085408 - Recommendations Recommendations: Etiology of the patient's symptoms remain unclear: malignancy vs. autoimmune vs. other. At this point, the patient's symptoms do not point to an acute infectious process. Check fungal serologies (Aspergillus galactomannan, histoplasmosis antigen, cryptococcus antigen, Blastomyces antibody, and fungitell). --> pending. Await biopsy pathology and bronch cultures/pathology. Will ask pathology to do GMS stain on the lymph node biopsy as well. Read PPD at 48 hours post-placement. If negative, can discontinue airborne isolation. Consider cardiothoracic surgery to evaluate. Continue to observe off antibiotics for now. If the patient takes a turn for the worse, repeat blood cultures 2 sets and start broad-spectrum antibiotics. Contact precautions per the hospital policy. Consult Discharge Plan - Plan Instructions: Rivaroxaban (By mouth) Referrals: Daniel Monahan MD [Primary Care Provider] - Prescriptions: Rivaroxaban [Xarelto] 1 dose PO AD 30 Days #1 pack - Attending Attestation I have personally performed a face to face evaluation on this patient. I have reviewed and agree with the care plan. History and Exam by me shows: Assessment and plan: 1.Feveretiology not clear infectious versus autoimmune versus malignancy versus other 2.Nausea and vomiting 3.Bilateral pulmonary embolism 4.Mediastinal lymphadenopathy 5.Anemia 6.Weight loss Recommendations Etiology of the patient's symptoms remain unclear: malignancy vs. autoimmune vs. other. At this point, the patient's symptoms do not point to an acute infect ious process. Check rheumatoid factor, CRP, ESR, and ANCA antibodies. Check fungal serologies (Aspergillus galactomannan, histoplasmosis antigen, cryptococcus antigen, Blastomyces antibody, and fungitell). Await biopsy pathology and cultures. Place PPD. Consider cardiothoracic surgery to evaluate. Continue to observe off antibiotics for now. If the patient takes a turn for the worse, repeat blood cultures 2 sets and start broad-spectrum antibiotics. Contact precautions per the hospital policy.
--- NOTE | 2018-11-02 10:52 | Internal Med Progress Note ---
Hospitalist Progress Note - Encounter Date of Encounter: 11/02/18 Time of Encounter: 08:00 - Subjective Interval History: Patient was seen and examined at bedside. Has no complaints. No acute events noted overnight. Occasional cough however he reports that it is dry without any sputum production. Has had no nausea vomiting or diarrhea. Denies fevers, chills, or rigors. Denies chest pain or shortness of breath. - Exam Vitals: Temp Pulse Resp BP Pulse Ox 97.9 F 88 18 122/76 98 11/02/18 07:48 11/02/18 07:48 11/02/18 07:48 11/02/18 07:48 11/02/18 07:52 Exam: General: Patient is alert, oriented, no acute distress, obese Head: atraumatic, normocephalic, Eye: normal appearance, PERRL, no scleral icterus, no conjunctival injection ENT: mucous membranes moist, normal external ear exam Neck: normal inspection, trachea midline, full ROM,could not appreciate lymphadenopathy Chest: normal inspection, symmetric chest rise Respiratory:decreased breath sounds secondary to body habitus, occasional crackles in the posterior lung field Cardiovascular: tachycardic. s1 and s2 No clicks, rubs, gallops, or murmors. Abdomen: Bowel sounds present normoactive x-4 quadrants. Abdomen is soft, nondistended. no Epigastric tenderness. No guarding or rebound. No organomegaly noted, obese musculoskeletal: Spontaneously moving all extremities. no edema, no calf tenderness Skin: warm, dry, intact. Neuro: Alert and oriented x3, no focal deficit Psych: Patient's affect is normal - Assessment and Plan (1) Bilateral pulmonary embolism Current Visit: Yes Status: Acute Assessment and Plan: CTA with bilateral segmental and segmental PE and Peripheral bibasilar airspace disease, greater on the left since the prior study, likely infarcts. Was treated with heparin drip and switch to Xarelto xarelto hopkins checked- $2 copay no right heart strain on TTE- full report below DVT study- No DVT in the bilateral lower extremities. pulm and oncology on board TTE-Impressions: LVEF 60-65%. Normal LV chamber size, wall thickness and function. Normal right ventricular structure and function. No significant valvular dysfunction. No evidence of pulmonary hypertension. (2) Lymphadenopathy Current Visit: Yes Status: Acute Assessment and Plan: Etiology of the patient's symptoms remain unclear: malignancy vs. autoimmune vs. infectious oncology on board had mediastenal lymphadenopathy and splenomegaly Plan was consulted and he status post bronchoscopy and biopsy on 11/01 Follow pathology report oncology on board recommended OP follow with Dr. Shaan Franco to do a lymph node biopsy in 4 weeks from now If inconclusive consider CT surgery consultation. (3) Pneumonia Current Visit: Yes Status: Acute Assessment and Plan: was recently admitted and treated discharged on 10/24 on augmentin (without relief) MRSA nasal swab - positive ESR 78, CRP 36 has been treated with 10 days of ABx since 10/22. levaquin discontinued ( afebrile has no leukocytosis) - continue to observe off of Abx urine antigens were negative last week pulmonology on board procalcitoin 0.21 bcx NGTD respiratory viral panel negative except for [place] IgG which was positive Read PPD at 48 hours post-placement ( to be read on 11/03) . If negative, can discontinue airborne isolation. ungal serologies (Aspergillus galactomannan, histoplasmosis antigen, cryptococcus antigen, Blastomyces antibody, and fungitell). --> pending. ID recs appreciated (4) Anemia Current Visit: Yes Status: Chronic Assessment and Plan: Per history and recent lab review, patient has microcytic anemia with iron deficiency. 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 - will follow biopsy Transitioned to oral PPI continue to monitor H/h closely hematology on board continue ferrous sulfate (5) Ulcerative esophagitis Current Visit: Yes Status: Acute Assessment and Plan: herpes serologies pending rest of plan and management as above (6) Sleep-disordered breathing Current Visit: Yes Status: Acute Assessment and Plan: Outpatient follow-up with pulmonology Was counseled on weight loss and nutrition. (7) DVT prophylaxis Current Visit: Yes Status: Acute Assessment and Plan: on heparin drip - Time Spent with Patient Total time spent is greater than 50% in coordination of care (as documented) at patient's floor/unit and/or counseling patient: Internal Medicine: Result - Labs CBC & Chem 7: 11/02/18 01:12 11/02/18 01:12 Labs: Short CBC 11/02/18 Range/Units 01:12 WBC 5.4 (4.3-11.1) K/mcL Hgb 10.3 L (12.9-16.9) g/dL Hct 34.9 L (37.5-50.1) % Plt Count 320 (140-400) K/mcL [facility] 11/02/18 01:12 Sodium 132 L Potassium 3.9 Chloride 103 Carbon Dioxide 23 BUN 10 Creatinine 0.77 Glucose 171 H Calcium 8.6 - ABG Interpretation ABG results: PT/INR, D-dimer PT 20.6 Seconds (9.4-12.1) H 10/31/18 02:55 Consult Discharge Plan - Plan Instructions: Rivaroxaban (By mouth) Referrals: Daniel Monahan MD [Primary Care Provider] - Prescriptions: Rivaroxaban [Xarelto] 1 dose PO AD 30 Days #1 pack (3) Pneumonia Qualifiers: Pneumonia type: due to unspecified organism Laterality: bilateral Lung location: lower lobe of lung Qualified Code(s): J18.1 - Lobar pneumonia, unspecified organism (4) Anemia Qualifiers: Anemia type: iron deficiency Iron deficiency anemia type: unspecified iron deficiency Qualified Code(s): D50.9 - Iron deficiency anemia, unspecified
--- NOTE | 2018-11-02 10:57 | Gastroenterology Progress Note ---
<SmallwoodJack Kristen - Last Filed: 11/02/18 10:58> Date of Encounter: 11/02/18 Time of Encounter: 10:05 - Assessment and plan (1) Nausea and vomiting Status: Acute Assessment and plan: Resolved. Continue omeprazole. Qualifiers: Vomiting type: unspecified Vomiting Intractability: unspecified Qualified Code(s): R11.2 - Nausea with vomiting, unspecified (2) Anemia Status: Chronic Assessment and plan: Hgb 11.6 with MCV 75.6on admission and dropped to 9.3 on 10/30/18. Hgb 10.3 with MCV 76.2 today. Iron 10 and ferritin 24 on 10/22/2018. Continue PO iron supplement. EGD with many cratered esophageal ulcers in the distal esophagus. Qualifiers: Anemia type: iron deficiency Iron deficiency anemia type: unspecified iron deficiency Qualified Code(s): D50.9 - Iron deficiency anemia, unspecified (3) Ulcerative esophagitis Status: Acute Assessment and plan: EGD with many cratered esophageal ulcers in the distal esophagus. Continue PPI and start Carafate suspension TID. Patient educated regarding lifestyle modifications including: (1) avoidance of foods that may precipitate reflux (eg, coffee, alcohol, trudy late, fatty foods). (2) avoidance of acidic foods that may precipitate heartburn (eg, citrus, carbo nated drinks, spicy foods). (3) adoption of behaviors that may reduce esophageal acid exposure (see weight loss, smoking cessation, raising the head of the bed, and avoiding recumbency for 2-3 hours after meals). (4) Bilateral pulmonary embolism Status: Acute Assessment and plan: Management per primary team and Heme/Onc. - Time Spent With Patient Total time spent is greater than 50% in coordination of care (as documented) at patient's floor/unit and/or counseling patient: - Subjective Interval history: Patient reports feeling well today. He denies fever, chills, chest pain, shortness of breath, abdominal pain, nausea, or vomiting. - Constitutional Vitals: Temp Pulse Resp BP Pulse Ox 97.9 F 88 18 122/76 98 11/02/18 07:48 11/02/18 07:48 11/02/18 07:48 11/02/18 07:48 11/02/18 07:52 General appearance: Present: cooperative, A&O X 3, no acute distress, answers questions appropriately - Head Head exam: Present: atraumatic, normocephalic - Eye Eye exam: Present: normal appearance, sclera anicteric - ENT ENT exam: Present: mucous membranes moist - Neck Neck exam general surgery: Present: normal inspection, trachea midline - Respiratory Respiratory exam: Present: decreased breath sounds, CTAB. Absent: rales, rhonchi - Cardiovascular Cardiovascular exam: Present: RRR, +S1, +S2 - GI/Abdominal GI/Abdominal exam: Present: soft, no peritoneal signs. Absent: distended, firm, guarding, tenderness - Rectal Rectal exam: Present: deferred - Extremities Exam Extremities exam: Present: warm - Neurological Exam Neurological exam: Present: no focal deficits - Psychiatric Psychiatric exam: Present: normal affect, normal mood - Skin Skin exam: Present: dry, intact, normal color, warm Results - Labs CBC & Chem 7: 11/02/18 01:12 11/02/18 01:12 Labs: Last Result 11/02/18 11/02/18 11/02/18 01:12 01:12 01:12 ESR 78 H Calcium 8.6 C-Reactive Protein 36 H Entire Visit 11/02/18 01:12 Hgb 10.3 L Hct 34.9 L - ABG ABG results: PT/INR, D-dimer PT 20.6 Seconds (9.4-12.1) H 10/31/18 02:55 Consult Discharge Plan - Plan Instructions: Pantoprazole (By mouth), Rivaroxaban (By mouth), Pulmonary Embolism (DC) Referrals: Daniel Monahan MD [Primary Care Provider] - (web request sent. However please call thursday afternoon if you do not hear from them. Please follow up in 5-7 days. Thank you!) Prescriptions: Sucralfate [Carafate] 1 gm PO TIDAC #90 udc Omeprazole [PriLOSEC] 40 mg PO DAILY@729 #60 capsule.[address] Hollisroxaban [Xarelto] 1 dose PO AD 30 Days #1 pack <Sai Lomax - Last Filed: 11/09/18 04:07> Date of Encounter: 11/02/18 - Time Spent With Patient Total time spent is greater than 50% in coordination of care (as documented) at patient's floor/unit and/or counseling patient: - Constitutional Vitals: Temp Pulse Resp BP Pulse Ox 98.3 F 74 16 105/68 97 11/04/18 10:50 11/04/18 10:50 11/04/18 10:50 11/04/18 10:50 11/04/18 10:50 Results - Labs CBC & Chem 7: 11/03/18 05:26 11/03/18 05:26 - ABG ABG results: PT/INR, D-dimer PT 20.6 Seconds (9.4-12.1) H 10/31/18 02:55 - Attending Attestation Work up continues in progress. As above I have personally performed a face to face evaluation on this patient. I have reviewed and agree with the care plan. History and Exam by me shows:
[2018-11-03 06:21] LABS: Hematocrit 36.1 % (37.5-50.1); Hemoglobin 10.5 g/dL (12.9-16.9); Mean Corpuscular HGB Conc 29.1 g/dL (31.6-35.5); Mean Corpuscular Hemoglobin 22.1 pg (28.0-33.3); Mean Corpuscular Volume 75.8 fL (83.0-100.0); Mean Platelet Volume 9.1 fL (9.4-12.4); Platelet Count 356 K/mcL (140-400); Red Blood Count 4.76 M/mcL (4.19-5.50); Red Cell Distribution Width 22.7 % (11.5-14.5); White Blood Count 4.5 K/mcL (4.3-11.1)
[2018-11-03 06:41] LABS: BUN/Creatinine Ratio 13 (6-26); Blood Urea Nitrogen 13 mg/dL (6-20); Calcium 8.7 mg/dL (8.6-10.3); Carbon Dioxide 25 mEq/L (23-29); Chloride 105 mEq/L (98-107); Glucose 94 mg/dL (70-105); Osmolality,Calculated 290 (280-300); Potassium 3.6 mEq/L (3.5-5.1); Sodium 140 mEq/L (136-145); eGFR For African Americans > 60 (> 60); eGFR For Non-African Americans > 60 (> 60)
[2018-11-03] MEDS: *HR* Rivaroxaban 15 MG TABLET PO SCH ×2 (08:15→20:12)
--- NOTE | 2018-11-03 09:51 | Infectious Disease Progress No ---
ID Progress Note Date of Encounter: 11/03/18 Time of Encounter: 09:48 - Subjective Subjective: Patient seen and examined. No acute events noted overnight. Patient states he feels a little bit better today and is sitting up in the chair. Denies fevers, chills, or rigors. Denies chest pain or shortness of breath. Reports sparse dry cough. Denies nausea, vomiting, diarrhea, or constipation. States he had a bowel movement a couple days, but this is normal for him. States his appetite is a little bit better. Denies abdominal pain or urinary complaints. Denies oral thrush or skin rashes. Denies pain today. - Objective CBC & Chem 7: 11/03/18 05:26 11/03/18 05:26 - Exam Vitals: Temp Pulse Resp BP Pulse Ox 97.6 F 82 18 112/71 97 11/03/18 07:56 11/03/18 07:56 11/03/18 07:56 11/03/18 07:56 11/03/18 07:56 Exam: Head: Atraumatic, normal inspection, normocephalic. Eye: EOMI, PERRLA, no scleral icterus noted. ENT: Mucous membranes moist. No odontogenic infection noted. Neck: Normal inspection, no meningismus. Respiratory: Clear to auscultation. No rales, respiratory distress, rhonchi, or wheezes noted. Cardiovascular: Regular rate and rhythm, S1 and S2 audible. No murmurs, rubs, or gallops. GI: Soft, nondistended, normal bowel sounds. Nontender on palpation. Extremities: No joint swelling, pedal edema, or tenderness noted. Neurological: Alert, oriented 3, no focal deficits. Psychiatric: normal affect, normal mood. Skin: Dry, intact, warm. Pale. No rashes. - Assessment and Plan (1) Fever Current Visit: No Status: Resolved MAXIMUM TEMPERATURE 100 (10/30). Etiology: Unclear. Pro-calcitonin 0.21, so bacterial infection lower on the differential. Blood cultures drawn 10/28/18 are negative 2 sets. Resolved. Qualifiers: Fever type: unspecified Qualified Code(s): R50.9 - Fever, unspecified SNOMED Code(s): 475294032 (2) Ulcerative esophagitis Current Visit: Yes Status: Acute Noted on EGD. Pathology pending. Management per the GI team. SNOMED Code(s): 215094978 (3) Tachycardia Current Visit: Yes Status: Resolved Noted on admission. Etiology: Likely secondary to dehydration. Resolved. SNOMED Code(s): 4124023 (4) Nausea and vomiting Current Visit: Yes Status: Acute Etiology: Unclear. Viral syndrome versus ulcerative esophagitis vs. other. Resolved. No vomiting since admission. GI consult. Status post EGD that showed many cratered esophageal ulcers and a hiatal hernia. Pathology is pending. Further workup and management per the GI team. Qualifiers: Vomiting type: unspecified Vomiting Intractability: unspecified Qualified Code(s): R11.2 - Nausea with vomiting, unspecified SNOMED Code(s): 06753246 (5) Bilateral pulmonary embolism Current Visit: Yes Status: Acute Noted on CTA of the chest. Etiology: Unclear. DVT study of the bilateral lower extremities negative. Heme/onc consulted. Anticoagulation per the hematology/oncology and primary teams. SNOMED Code(s): 43123983 (6) Mediastinal lymphadenopathy Current Visit: Yes Status: Acute Etiology: Unclear. Reactive versus malignancy versus other. Status post Bronchoscopy with EBUS 11/01/18. BAL cultures and cytology pending. Lymph node biopsy pathology pending. NOY appeared negative for malignancy. Unable to perform cultures on specimens here since specimen already in formalin, but there is a frozen section that was sent out for HSV. They are unable to do cultures on it. Fungal serologies pending. - Crypto antigen negative. Previous ABDULLAHI positive. ANCA antibodies pending. SNOMED Code(s): 75847702 (7) Anemia Current Visit: Yes Status: Chronic Qualifiers: Anemia type: iron deficiency Iron deficiency anemia type: unspecified iron deficiency Qualified Code(s): D50.9 - Iron deficiency anemia, unspecified SNOMED Code(s): 266142115 - Recommendations Recommendations: Etiology of the patient's symptoms remain unclear: malignancy vs. autoimmune vs. other. At this point, the patient's symptoms do not point to an acute infectious process. Recommend rheumatology to evaluate. Check fungal serologies (Aspergillus galactomannan, histoplasmosis antigen, Blastomyces antibody, and fungitell). --> pending. Crypto negative. Await biopsy pathology and bronch cultures/pathology. Will ask pathology to do GMS stain on the lymph node biopsy as well. Read PPD at 48 hours post-placement. If negative, can discontinue airborne isolation. Continue to observe off antibiotics for now. If the patient takes a turn for the worse, repeat blood cultures 2 sets and start broad-spectrum antibiotics. Contact precautions per the hospital policy. Consult Discharge Plan - Plan Instructions: Rivaroxaban (By mouth) Referrals: Daniel Monahan MD [Primary Care Provider] - Prescriptions: Rivaroxaban [Xarelto] 1 dose PO AD 30 Days #1 pack - Attending Attestation I have personally performed a face to face evaluation on this patient. I have reviewed and agree with the care plan. History and Exam by me shows: Assessment and plan: 1.Feveretiology not clear infectious versus autoimmune versus malignancy versus other 2.Nausea and vomiting 3.Bilateral pulmonary embolism 4.Mediastinal lymphadenopathy 5.Anemia 6.Weight loss Recommendations: Etiology of the patient's symptoms remain unclear: malignancy vs. autoimmune vs. other. At this point, the patient's symptoms do not point to an acute infectious process. Recommend rheumatology to evaluate. Check fungal serologies (Aspergillus galactomannan, histoplasmosis antigen, Blastomyces antibody, and fungitell). --> pending. Crypto negative. Await biopsy pathology and bronch cultures/pathology. Will ask pathology to do GMS stain on the lymph node biopsy as well. Read PPD at 48 hours post-placement. If negative, can discontinue airborne isolation. Continue to observe off antibiotics for now. If the patient takes a turn for the worse, repeat blood cultures 2 sets and start broad-spectrum antibiotics. Contact precautions per the hospital policy.
--- NOTE | 2018-11-03 17:05 | Event Note ---
Date of Encounter: 11/03/18 Time of Encounter: 17:04 Pulmonology continuing to follow peripherally for culture results, which are not finalized at this time. Pt has been stable from a respiratory standpoint with acceptable oxygenation and ventilation.
--- NOTE | 2018-11-03 17:47 | Oncology Inp Progress Note ---
Date of Encounter: 11/03/18 Time of Encounter: 12:00 (1) Bilateral pulmonary embolism Current Visit: Yes Status: Acute Assessment and plan: ON anticoagulation with heparin. Feels improved denies pain/bleeding Mediastinal adenopathy, patient had bronchial biopsy negative for malignancy findings reviewed discussed with patient. He is in isolation to rule out atypical infection. Status post endoscopy findings noted reviewed with patient his symptoms have improved. Discussed plan of care with patient family, infectious diseases. Pulmonary embolism to be managed as an outpatient upon discharge on oral anticoagulants Oncology: Subj Interval history: Patient is sitting up in the chair not in acute distress occasional cough, denies any pain or nausea. - Constitutional General appearance: no acute distress - Head Head exam: Present: atraumatic, normal inspection - Eye Eye exam: Present: sclera anicteric - Neck Neck exam: Present: full ROM - Respiratory Respiratory exam: Present: CTAB - Cardiovascular Cardiovascular exam: Present: +S1, +S2 - GI/Abdominal GI/Abdominal exam: Present: normal bowel sounds, soft - Extremities Exam Extremities exam: Present: normal inspection - Neurological Exam Neurological exam: Present: alert, CN II-XII intact, oriented X3, no focal deficits - Psychiatric Psychiatric exam: Present: normal mood - Skin Skin exam: Present: dry, normal color Oncology: Obj Data - Labs CBC & Chem 7: 11/03/18 05:26 11/03/18 05:26 Consult Discharge Plan - Plan Instructions: Rivaroxaban (By mouth) Referrals: Daniel Monahan MD [Primary Care Provider] - Prescriptions: Rivaroxaban [Xarelto] 1 dose PO AD 30 Days #1 pack Inpatient Charges Provider: Dr. Sheri Roger Follow up - Inpatient: [id number]
--- NOTE | 2018-11-03 20:09 | Internal Med Progress Note ---
Hospitalist Progress Note - Encounter Date of Encounter: 11/03/18 Time of Encounter: 13:00 - Subjective Interval History: Mr Montero reports feeling better with regard to his generalized malaise and fatigue. He confirms that he has not been sedentary in nature and denies any familial history of prior history of coagulopathies. He also denies being sex ually active ever been sexually active and he denies any intravenous drug use. He denies ever being incarcerated or any sick contacts. - Exam Vitals: Temp Pulse Resp BP Pulse Ox 98.0 F 83 22 116/78 98 11/03/18 16:20 11/03/18 16:20 11/03/18 16:20 11/03/18 16:20 11/03/18 16:20 Exam: GENERAL: NAD, A&O x3, pleasant and conversant, his father was at his bedside SKIN: No skin lesions or rashes, non-jaundiced EYES: EOMI, PERRLA, no sclera icterus HENT: Head atraumatic, no facial asymmetry, frontal and maxillary sinus non- tender, normal hearing, oropharynx and mucosa moist and without any exudates NECK: No cervical lymphadenopathy, trachea midline, thyroid is palpable does not appear enlarged LUNGS: vesicular breath sounds, clear to auscultation, no wheeze, rhonchi, rales or crackles. Non labored respirations HEART: Normal rate and rhythm, no murmurs or rubs ABDOMEN: soft, non-tender, non-distended, bowel sounds x 4 normoactive EXTRMITIES: No LE asymmetry, No LE edema, pedal pulses 1+ and radial pulses 2 + and equal bilaterally NEURO: Speech and comprehension appears intact. PSYCH: Cooperative, non- anxious or irritable, mood and affect is appropriate - Assessment and Plan (1) Bilateral pulmonary embolism Current Visit: Yes Status: Acute Assessment and Plan: Patient is currently asymptomatic on Xarelto, work up so for has been unyield ing. He denies any prior history of coagulopathies. This appears to be unprovoked PE. Patient might require outpatient workup for coagulopathies upon discharge as outpatient CTA with bilateral segmental and segmental PE and Peripheral bibasilar airspace disease, greater on the left since the prior study, likely infarcts. Was treated with heparin drip and switch to Xarelto xarelto hopkins checked- $2 copay no right heart strain on TTE- full report below DVT study- No DVT in the bilateral lower extremities. pulm and oncology on board TTE-Impressions: LVEF 60-65%. Normal LV chamber size, wall thickness and function. Normal right ventricular structure and function. No significant valvular dysfunction. No evidence of pulmonary hypertension. (2) Mediastinal lymphadenopathy Current Visit: Yes Status: Acute Assessment and Plan: Workup so far has been unyielding might require outpatient workup and follow-up with rheumatology. (3) Sleep-disordered breathing Current Visit: Yes Status: Acute Assessment and Plan: Outpatient follow-up with pulmonology Was counseled on weight loss and nutrition. (4) Microcytic anemia Current Visit: Yes Status: Acute Assessment and Plan: Hemoglobin is stable at 10.5 continue iron sulfate tablets - Time Spent with Patient Total time spent is greater than 50% in coordination of care (as documented) at patient's floor/unit and/or counseling patient: Plan of Care Discussed with: nurse Internal Medicine: Result - Labs CBC & Chem 7: 11/03/18 05:26 11/03/18 05:26 Labs: Short CBC 11/03/18 Range/Units 05:26 WBC 4.5 (4.3-11.1) K/mcL Hgb 10.5 L (12.9-16.9) g/dL Hct 36.1 L (37.5-50.1) % Plt Count 356 (140-400) K/mcL [facility] 11/03/18 05:26 Sodium 140 Potassium 3.6 Chloride 105 Carbon Dioxide 25 BUN 13 Creatinine 1.00 Glucose 94 Calcium 8.7 - ABG Interpretation ABG results: PT/INR, D-dimer PT 20.6 Seconds (9.4-12.1) H 10/31/18 02:55 Consult Discharge Plan - Plan Instructions: Rivaroxaban (By mouth) Referrals: Daniel Monahan MD [Primary Care Provider] - Prescriptions: Rivaroxaban [Xarelto] 1 dose PO AD 30 Days #1 pack
[2018-11-04 02:10] LABS: A.galactomannan Ag Index 0.05
[2018-11-04 07:56] LABS: Herpes Simplex PCR Qual Res NOT DETECTED
[2018-11-04] MEDS: *HR* Rivaroxaban 15 MG TABLET PO SCH (08:05)
[2018-11-04 10:55] VITALS: BP 105/68
--- NOTE | 2018-11-04 14:36 | Discharge Summary ---
- NOTES TO OUTPATIENT PROVIDER Notes to Outpatient Provider: Patient might need outpatient referral to cold strip roller given that the extensive mediastinal lymphadenopathy work up was all on yielding Orders not resulted at time of discharge: Pending orders 10/28/18 21:52 Culture,Sputum with Gram Stain [RM] Routine 10/29/18 07:53 Peripheral Bld Flow Stat 11/01/18 09:43 AFB Culture, Respiratory [TB] Routine AFB Smear [TB] Routine Fungal Culture [MYC] Routine 11/02/18 01:12 Coccidioides immitis Ab by ID [id number] Date of Encounter: 11/04/18 Time of Encounter: 14:34 - Discharge Diagnosis (1) Bilateral pulmonary embolism Priority: Primary Status: Acute Assessment and Plan: Patient is currently asymptomatic on Xarelto, work up so for has been unyielding. He denies any prior history of coagulopathies. This appears to be unprovoked PE. Patient might require outpatient workup for coagulopathies upon discharge as outpatient CTA with bilateral segmental and segmental PE and Peripheral bibasilar airspace disease, greater on the left since the prior study, likely infarcts. Was treated with heparin drip and switch to Xarelto xarelto hopkins checked- $2 copay no right heart strain on TTE- full report below DVT study- No DVT in the bilateral lower extremities. pulm and oncology on board TTE-Impressions: LVEF 60-65%. Normal LV chamber size, wall thickness and function. Normal right ventricular structure and function. No significant valvular dysfunction. No evidence of pulmonary hypertension. (2) Mediastinal lymphadenopathy Priority: Secondary Status: Acute Assessment and Plan: Workup so far has been unyielding might require outpatient workup and follow-up with rheumatology. (3) Sleep-disordered breathing Priority: Secondary Status: Acute Assessment and Plan: Outpatient follow-up with pulmonology Was counseled on weight loss and nutrition. (4) Microcytic anemia Priority: Secondary Status: Acute Assessment and Plan: Hemoglobin is stable at 10.5 continue iron sulfate tablets (5) Ulcerative esophagitis Priority: Secondary Status: Acute Assessment and Plan: Work up was unyielding patient does admit to history of GERD and chronic cough, we will discharge home on sucralfate Protonix admitted patient on nonpharmacological treatment measures for GERD including not limited to dietary as well as raising the head of his bed above 30 degrees. Hospital course: Mr. Montero is a 27 year old male was hospitalized for bilateral pulmonary embolism and pneumonia was noted during his workup will have mediastinal lymphadenopathy. He had quite an extensive workup including BAL, several laboratory workup including acid-fast stain risk for a culture and fungal culture which were all unyielding. He was also noted based on EGD to have esophagitis which patient endorses a history of severe GERD. Given that his PE is determined to be unprovoked patient will need more than 3 months of anticoagulation therapy was started on Xarelto. He may also require outpatient workup for coagulopathies and rheumatology follow-up if his symptoms persist despite his treatment measures Discharge discussed with: patient, family, nurse - Time Spent with Patient Total time spent providing and/or coordinating discharge services:50 mins - Discharge Medications Prescriptions: New Rivaroxaban [Xarelto] 1 dose PO AD 30 Days #1 pack Sucralfate [Carafate] 1 gm PO TIDAC #90 udc Omeprazole [PriLOSEC] 40 mg PO DAILY@0730 #60 capsule.dr Baker Acetaminophen [Tylenol] 650 mg PO DAILY PRN PRN Reason: Headache Ferrous Sulfate 325 mg PO BIDWM #60 tablet Home Medications: Acetaminophen [Tylenol] 650 mg PO DAILY PRN 10/21/18 [History] Ferrous Sulfate 325 mg PO BIDWM #60 tablet 10/24/18 [Rx] Rivaroxaban [Xarelto] 1 dose PO AD 30 Days #1 pack 10/29/18 [Rx] Omeprazole [PriLOSEC] 40 mg PO DAILY@0730 #60 capsule. 11/04/18 [Rx] Sucralfate [Carafate] 1 gm PO TIDAC #90 udc 11/04/18 [Rx] Allergies/Adverse Reactions: Allergy/AdvReac Type Severity Reaction Status Date / Time No Known Allergies Allergy Verified 10/21/18 22:18 Date of admission: 10/28/18 21:52 Primary care physician: Daniel Monahan MD Consults: 10/28/18 21:52 Consult to Gastroenterology [CONS] Routine Consulting Provider: Gastroenterology Nellie Reason for Consult: EGD/colonoscopy; microcytic anemia Time Notified: 21:57 Call Completed: Yes Consult to Oncology Hematology [CONS] Routine Consulting Provider: Romero Chow Reason for Consult: Bilateral PE; possible lymphoma work-up Time Notified: 21:57 Call Completed: Yes 10/31/18 09:52 Consult to Infectious Diseases [CONS] Routine Consulting Provider: Infectious Disease Nellie Reason for Consult: vital syndrome? has lymphadenopathy and severe ulcerative esophagitis Call Completed: No Consult to Pulmonology [CONS] Routine Consulting Provider: [facility] [place] Reason for Consult: biopsy Call Completed: Yes 11/02/18 07:22 Consult to Nurse Navigator [CONS] Routine Comment: pn Discharging clinician: Laly Gold Anticipated date of discharge: 11/04/18 - Constitutional Vitals: Temp Pulse Resp BP Pulse Ox 98.3 F 74 16 105/68 97 11/04/18 10:50 11/04/18 10:50 11/04/18 10:50 11/04/18 10:50 11/04/18 10:50 General appearance: Present: cooperative, A&O X 3, pleasant Exam: GENERAL: NAD, A&O x3, pleasant and conversant, his mother, brother and father were at his bedside SKIN: No skin lesions or rashes, non-jaundiced EYES: EOMI, PERRLA, no sclera icterus HENT: Head atraumatic, no facial asymmetry, normal hearing, oropharynx and mucosa moist and without any exudates NECK: No cervical lymphadenopathy, trachea midline LUNGS: vesicular breath sounds, clear to auscultation, no wheeze, rhonchi, rales or crackles. Non labored respirations HEART: Normal rate and rhythm, no murmurs or rubs ABDOMEN: soft, non-tender, non-distended, bowel sounds x 4 normoactive EXTRMITIES: No LE asymmetry, No LE edema, pedal pulses 1+ and radial pulses 2 + and equal bilaterally NEURO: Speech and comprehension appears intact. PSYCH: Cooperative, non- anxious or irritable, mood and affect is appropriate - Patient Status Disposition: Home, Self-Care Condition: Fair Functional capacity at discharge: independent ambulation Overall status at discharge: patient is back to baseline - Discharge Instructions Instructions: Rivaroxaban (By mouth), Pulmonary Embolism (DC) Follow Up With: Daniel Monahan MD [Primary Care Provider] - - Diet and Activity Activity: resume usual activities as tolerated Diet: low fat, low cholesterol
[2018-11-20] MEDS ORDERED: *HR* Rivaroxaban 10 MG TABLET PO SCH (17:00)
[2018-11-23] MEDS ORDERED: *HR* Rivaroxaban 10 MG TABLET PO SCH (17:00)
== END 2018-11-04 16:19 | disposition home or self-care (01) | DRG 134 ==
LOC: EMEROOARM 13:41 → 3BNU 13:41 → SUATTDRO 21:52 → 2ANU 22:11
PROVIDERS: ADMIT Family Medicine; ATTEND Pharmacist
PROC: ENDOEBX (2018-10-31 08:00)

== ENCOUNTER 2019-06-12 12:28 | Observation (INO) ==
[2019-06-12] MEDS ORDERED: Piperacillin/Tazobactam 3.375 GM in 0.9 % Sodium Chloride Mini Bag 100 ML IVPB ONE (13:05)
[2019-06-12 13:06] LABS: Basophils % 0.4 %; Eosinophils # 0.1 K/mcL (0.0-0.6); Eosinophils % 1.2 %; Hematocrit 43.8 % (37.5-50.1); Hemoglobin 15.3 g/dL (12.9-16.9); Immature Granulocytes % 0.5 % (0-4); Lymphocytes # 2.1 K/mcL (0.6-4.6); Lymphocytes % 21.1 %; Mean Corpuscular HGB Conc 34.9 g/dL (31.6-35.5); Mean Corpuscular Volume 85.9 fL (83.0-100.0); Mean Platelet Volume 8.6 fL (9.4-12.4); Monocytes # 0.8 K/mcL (0.0-1.3); Monocytes % 7.9 %; Neutrophils # 6.8 K/mcL (1.6-8.9); Platelet Count 274 K/mcL (140-400); Red Cell Distribution Width 12.1 % (11.5-14.5); Segmented Neutrophils % 68.9 %; White Blood Count 9.9 K/mcL (4.3-11.1)
[2019-06-12] MEDS ORDERED: Lidocaine 1% 20 ML MDV INFILT ONE (13:06)
[2019-06-12] MEDS ORDERED: Isovue-370 500 ML BOTTLE IVP ONE (13:06)
[2019-06-12 13:23] LABS: BUN/Creatinine Ratio 9 (6-26); Blood Urea Nitrogen 11 mg/dL (6-20); C-Reactive Protein 151 mg/L (Less than 10); Carbon Dioxide 23 mEq/L (23-29); Chloride 103 mEq/L (98-107); Glucose 107 mg/dL (70-105); Osmolality,Calculated 280 (280-300); Potassium 3.8 mEq/L (3.5-5.1); Sodium 135 mEq/L (136-145); eGFR For African Americans > 60 (> 60); eGFR For Non-African Americans > 60 (> 60)
[2019-06-12] MEDS: 0.9 % Sodium Chloride 1,000 ML IVC SCH ×2 (13:50→16:26)
[2019-06-12] MEDS ORDERED: Ondansetron 4 MG/2 ML VIAL IVP PRN (14:59)
[2019-06-12] MEDS ORDERED: Naloxone 0.4 MG/ML INJ IVP PRN (14:59)
[2019-06-12] MEDS ORDERED: Vancomycin 1,750 MG in 0.9 % Sodium Chloride 250 ML IVPB SCH (16:00)
[2019-06-12] MEDS: Ringers Solution, Lactated 1,000 ML IVC SCH (17:22)
[2019-06-12] MEDS: Piperacillin/Tazobactam 3.375 GM in 0.9 % Sodium Chloride Mini Bag 100 ML IVPB SCH (18:36)
[2019-06-12] MEDS: *HR* Heparin 5,000 UNIT/ML VIAL SQ SCH (22:41)
[2019-06-13] MEDS: Ringers Solution, Lactated 1,000 ML IVC SCH (04:00)
[2019-06-13] MEDS: Piperacillin/Tazobactam 3.375 GM in 0.9 % Sodium Chloride Mini Bag 100 ML IVPB SCH ×3 (04:01→20:08)
[2019-06-13] MEDS: Acetaminophen 325 MG TABLET PO PRN ×2 (04:01→13:37)
[2019-06-13] MEDS: *HR* Heparin 5,000 UNIT/ML VIAL SQ SCH ×3 (06:04→16:26)
[2019-06-13 10:34] LABS: Basophils % 0.5 %; Eosinophils # 0.2 K/mcL (0.0-0.6); Eosinophils % 2.9 %; Hematocrit 36.3 % (37.5-50.1); INR 1.5; Immature Granulocytes % 0.5 % (0-4); Lymphocytes # 1.8 K/mcL (0.6-4.6); Mean Corpuscular HGB Conc 34.2 g/dL (31.6-35.5); Mean Corpuscular Hemoglobin 30.2 pg (28.0-33.3); Mean Corpuscular Volume 88.3 fL (83.0-100.0); Mean Platelet Volume 8.8 fL (9.4-12.4); Monocytes # 0.6 K/mcL (0.0-1.3); Neutrophils # 3.7 K/mcL (1.6-8.9); Platelet Count 243 K/mcL (140-400); Red Blood Count 4.11 M/mcL (4.19-5.50); Segmented Neutrophils % 59.1 %; White Blood Count 6.3 K/mcL (4.3-11.1)
[2019-06-13 10:36] LABS: Hemoglobin 12.4 g/dL (12.9-16.9)
[2019-06-13 11:00] LABS: Alanine Aminotransferase 14 Units/L (7-52); Albumin/Globulin Ratio 1.2 (1.1-2.2); Alkaline Phosphatase 53 Units/L (34-104); Aspartate Amino Transferase 15 Units/L (13-39); BUN/Creatinine Ratio 8 (6-26); Bilirubin,Total 1.1 mg/dL (0.3-1.0); Blood Urea Nitrogen 8 mg/dL (6-20); Carbon Dioxide 22 mEq/L (23-29); Chloride 107 mEq/L (98-107); Globulin 2.5 g/dL (2.4-3.5); Glucose 80 mg/dL (70-105); Magnesium 1.6 mg/dL (1.6-2.6); Osmolality,Calculated 283 (280-300); Phosphorous 2.5 mg/dL (2.7-4.5); Potassium 3.7 mEq/L (3.5-5.1); Sodium 138 mEq/L (136-145); Total Protein 5.5 g/dL (6.4-8.9); eGFR For African Americans > 60 (> 60); eGFR For Non-African Americans > 60 (> 60)
[2019-06-13] MEDS ORDERED: Dexamethasone 4 MG/ML VIAL ONE (11:10)
[2019-06-13] MEDS ORDERED: Ondansetron 4 MG/2 ML VIAL ONE (11:10)
[2019-06-13] MEDS ORDERED: Lidocaine -MPF 2% 2 ML VIAL ONE (11:10)
[2019-06-13] MEDS ORDERED: *HR* Propofol 200 MG/20 ML VIAL IVP ONE (11:10)
[2019-06-13] MEDS ORDERED: *HR* FentaNYL (PF) 100 MCG/2 ML VIAL ONE (11:10)
[2019-06-13] MEDS ORDERED: *HR* Succinylcholine 200 MG/10 ML VIAL IVP ONE (11:10)
[2019-06-13] MEDS ORDERED: Ketorolac 30 MG/ML VIAL IVP ONE (11:45)
[2019-06-13] MEDS ORDERED: Ondansetron 4 MG/2 ML VIAL IVP ONE (11:45)
[2019-06-13] MEDS ORDERED: *HR* OxyCODONE Immed Rel 5 MG TABLET PO PRN ×2 (11:45→13:44)
[2019-06-13] MEDS ORDERED: Ringers Solution, Lactated 1,000 ML IVC SCH ×2 (11:45→13:44)
[2019-06-13] MEDS ORDERED: *HR* HYDROmorphone (PF) 1 MG/ML SYRINGE IVP PRN ×2 (11:45→13:44)
[2019-06-13] MEDS ORDERED: CefOXitin 1,000 MG VIAL ONE (12:04)
[2019-06-13] MEDS ORDERED: Naloxone 0.4 MG/ML INJ IVP PRN (13:44)
[2019-06-13] MEDS ORDERED: Ondansetron 4 MG/2 ML VIAL IVP PRN (13:44)
[2019-06-13] MEDS ORDERED: Acetaminophen 325 MG TABLET PO PRN (13:44)
[2019-06-14] MEDS: *HR* Heparin 5,000 UNIT/ML VIAL SQ SCH ×3 (00:06→14:00)
[2019-06-14] MEDS: Piperacillin/Tazobactam 3.375 GM in 0.9 % Sodium Chloride Mini Bag 100 ML IVPB SCH (04:23)
[2019-06-14 05:49] LABS: Hematocrit 37.1 % (37.5-50.1); Hemoglobin 12.9 g/dL (12.9-16.9); Mean Corpuscular HGB Conc 34.8 g/dL (31.6-35.5); Mean Corpuscular Hemoglobin 30.3 pg (28.0-33.3); Mean Corpuscular Volume 87.1 fL (83.0-100.0); Mean Platelet Volume 8.9 fL (9.4-12.4); Platelet Count 291 K/mcL (140-400); Red Blood Count 4.26 M/mcL (4.19-5.50); Red Cell Distribution Width 11.9 % (11.5-14.5); White Blood Count 8.6 K/mcL (4.3-11.1)
[2019-06-14 06:09] LABS: BUN/Creatinine Ratio 13 (6-26); Blood Urea Nitrogen 11 mg/dL (6-20); Calcium 8.4 mg/dL (8.6-10.3); Carbon Dioxide 20 mEq/L (23-29); Chloride 108 mEq/L (98-107); Glucose 113 mg/dL (70-105); Osmolality,Calculated 286 (280-300); Potassium 4.3 mEq/L (3.5-5.1); Sodium 138 mEq/L (136-145); eGFR For African Americans > 60 (> 60); eGFR For Non-African Americans > 60 (> 60)
[2019-06-14] MEDS ORDERED: Doxycycline 100 MG CAPSULE PO SCH (09:00)
[2019-06-14 10:31] VITALS: BP 112/70
[2019-06-14] MEDS ORDERED: Aminoglycoside Consult 1 EACH MC ONE (18:48)
== END 2019-06-14 18:49 | disposition home health service (06) ==
LOC: EMEROOARM 12:28 → 3ANU 12:28 → SUATTDRO 14:57 → 3ANU 15:49
PROVIDERS: ADMIT Internal Medicine; ATTEND Family Medicine